=== PATIENT | female | born 1945 | race Caucasian/White ===

== ENCOUNTER 2025-01-18 08:54 | Outpatient (AMB) | payer MEDICARE, OTHER, SELFPAY ==
--- NOTE | 2025-01-18 09:14 | MHC.OFFVIS ---
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 Required: No Accompanied by: Self / Same As Patient Allergies amlodipine [From Norvasc] Allergy (Mild, Verified 01/18/25 09:22) Swelling hydroxychloroquine [From Plaquenil] Allergy (Mild, Verified 01/18/25 09:22) hives Medication List - Last Reconciled 01/18/25 by Bladimir Schofield MD abatacept (Orencia) 125 mg subcut QWEEK apixaban (Eliquis) 5 mg PO BID calcium citrate 200 mg PO BID cholecalciferol (vitamin D3) 25 mcg PO DAILY denosumab (Prolia) 60 mg subcut [id number] diclofenac sodium ER 100 mg PO DAILY furosemide (Lasix) 20 mg PO DAILY hydrochlorothiazide 50 mg PO DAILY labetalol 200 mg PO BID lisinopril 30 mg PO DAILY omeprazole 40 mg PO BID verapamil ER 120 mg PO BID vitamin E (dl, acetate) 180 mg PO DAILY HPI Comments Details: Ирина is here for cardiac consultation. Previously, seen at [facility] but would like to switch as her youth probation officer has left the practice. We do not have her previous office notes. According to patient, she has had atrial fibrillation for a few years now. Initially, she states it was intermittent, possibly paroxysmal atrial fibrillation but more recently it has been persistent. According to her, rates are generally well controlled. She seems to be on labetalol and verapamil for that. Also on anticoagulation. She asked about Watchman device but she has not had any falls or bleeding issues. Has hypertension on lisinopril. Denies any history of coronary disease or myocardial infarction or cardiomyopathy or TIA/CVA history. She states that she has also been told to have congestive heart failure and takes a small dose of diuretic. Other comorbidities include rheumatoid arthritis/osteoporosis. [facility] Medical History (Updated 01/18/25 @ 09:52 by Bladimir Schofield MD) Chronic heart failure with preserved ejection fraction (HFpEF) Persistent atrial fibrillation Osteoporosis Primary hypertension Rheumatoid arteritis Surgical History (Updated 01/18/25 @ 09:47 by Bladimir Schofield MD) Status post right hip replacement H/O: hysterectomy Hx of cervical spine surgery History of knee replacement Family History Father Heart problem Rheumatoid arthritis HTN (hypertension) Mother Heart problem HTN (hypertension) Diabetes type 2 Rheumatoid arthritis Social History (Updated 01/18/25 @ 09:28 by Harmony Sykes CMA) Alcohol intake: never Patient Tobacco Use Status: Former Tobacco user Review of Systems Const Denies chills, Denies daytime sleepiness, Denies fatigue, Denies fever(s), Denies poor appetite, Denies snoring, Denies stops breathing during sleep, Denies weakness, Denies weight gain and Denies weight loss Eyes Denies loss of vision ENT Denies dizziness and Denies hearing loss Card Denies chest pain, Denies irregular heart rhythm, Denies claudication, Denies leg edema, Denies lightheadedness, Denies palpitations, Denies dyspnea on exertion and Denies orthopnea Resp Denies cough, Denies excessive phlegm production, Denies dyspnea on exertion, Denies snoring and Denies wheezing GI Denies abdominal pain, Denies hematochezia, Denies change in bowel habits, Denies nausea and Denies vomiting Denies urinary frequency and Denies dysuria Musc Denies arthralgias, Denies muscle weakness, Denies numbness and Denies other Skin/Breast Denies nail changes and Denies rash Neuro Denies Abnormal speech present, Denies dizziness, Denies loss of vision, Denies memory loss, Denies numbness and Denies weakness Psych Denies depression and Denies memory loss Endo Denies fatigue and Denies palpitations Vasyl/Lymph Denies easy bruising Aller/Immun Denies wheezing Physical Exam Vital Signs: Last Vital Signs Pulse 87 01/18/25 09:21 BP 146/64 H 01/18/25 09:21 BMI result Body Mass Index 28.1 Const General: comfortable and no acute distress Orientation/consciousness: patient oriented x3 HEENT Other: Unremarkable Head: Yes normal to inspection Neck Neck: Yes normal visual inspection Chest Chest palpation & inspection: normal inspection of the chest Resp Auscultation: clear to auscultation bilaterally Cardio Palpation: normal PMI Heart sounds: S1 normal heart sound present, S2 normal heart sound present, no gallops, no murmurs and no rubs GI Palpation (GI): Soft to palpation Back/Spine/Pelvis Other: unremarkable Skin General skin exam: no rashes or lesions noted Neuro General: patient oriented x3 Speech: No Abnormal speech present Extrem General: Yes normal to inspection Psych Mental Status: mental status grossly normal Office Procedures EKG Details: EKG with atrial fibrillation at 87/Min; PVC versus aberrant conduction. Cannot exclude old septal infarct versus lateral infarct. Could also be related to body habitus. [id number], Complete Assessment & Plan Assessment & Plan (1) Persistent atrial fibrillation: Code(s): I48.19 - Other persistent atrial fibrillation Category: Medical Plan: Appears rate controlled. On labetalol/verapamil. On Eliquis. As she has no history of recurring falls or bleeding concerns, no absolute indication to proceed with Watchman device. We discussed about the procedure itself and after going over it, she states that she would rather just stay on anticoagulation for now. A prior EKG from 2019 also shows atrial fibrillation which likely indicates chronicity. (2) Chronic heart failure with preserved ejection fraction (HFpEF): Code(s): I50.32 - Chronic diastolic (congestive) heart failure Category: Medical Plan: No overt volume overload on exam. She can take furosemide as necessary. No indication to continue daily. She is also listed to be on hydrochlorothiazide, presumably for hypertension. Echocardiogram from 10/2023-LVEF 45-50%. Borderline concentric hypertrophy. Severely dilated atria. Possible mild aortic stenosis. Mild pulmonary hypertension. Plan We will request notes from primary care physician as well as prior youth probation officer. Coding Level of Care Code New Pt Level 4 (09810) Complex EM visit Add On G2211 Diagnoses Persistent atrial fibrillation I48.19 Chronic heart failure with preserved ejection fraction (HFpEF) I50.32 CPT Codes EKG - CPT: 91804-[id number], Complete ([id number])
[2025-01-18 09:21] VITALS: BP 146/64; PULSE 87; BMI 28.1
== END 2025-01-18 10:03 | disposition home or self-care (01) ==
PROVIDERS: PCP Family Medicine; Visit Provider Internal Medicine
DX: I48.19 Other persistent atrial fibrillation (principal); I50.32 Chronic diastolic (congestive) heart failure
CPT/HCPCS: 93010; 99204; G2211

== ENCOUNTER → 2025-01-18 08:54 | Outpatient (BNVA) | payer MEDICARE, SELFPAY | PROVIDERS: PCP Family Medicine; Visit Provider Internal Medicine | DX: I48.19 Other persistent atrial fibrillation (principal); I50.32 Chronic diastolic (congestive) heart failure | CPT/HCPCS: 93005; 99202 ==

== ENCOUNTER 2025-04-29 08:54 | Outpatient (AMB) | payer MEDICARE, OTHER, SELFPAY ==
--- OUTSIDE RECORDS SUMMARY | 2025-04-29 09:04 | XMS_ITS ---
Author Name [facility] Organization Unknown Results Test Name/Text Value Interpretation Date Range Source POTASSIUM 4.9 mmol/L Normal 05/07/2023 3.6 - 5.1 [facility] History of Medication Use Medication Directions Dispensed Refills Start Date End Date Status LISINOPRIL-HYDROCHLOROTH IAZIDE ORAL 3 active lisinopriL (PRINIVIL) 30 mg tablet Take 30 mg by mouth in the morning. 3 07/26/20 24 active predniSONE (DELTASONE) 5 mg tablet Take 2 tablets (10 mg total) by mouth in the morning. 3 07/16/20 23 active methylPREDNISolone acetate (DEPO-medrol) injection 40 mg 40 mg, intramuscular, Once, 1 dose, On Sat11/19/23 at 1345, Do not give IV. Shake well. Avoid injection into the deltoid muscle due to a high incidence of subcutaneous atrophy. 3 11/19/19 24 completed atenoloL (TENORMIN) 100 mg tablet 2 01/27/20 24 active ergocalciferol (VITAMIN D2) 1,250 mcg (50,000 unit) capsule TAKE 1 CAPSULE BY MOUTH 1 TIME A WEEK 2 10/18/20 22 active hydroCHLOROthiazide (HYDRODIURIL) tablet 1 active methotrexate tablet Take 6 tablets (15 mg total) by mouth once a week. Follow directions carefully, and ask to explain any part you do not understand. Take exactly as directed. 1 03/22/20 22 completed FluZONE HighDose Quad 20-21 PF 240 mcg/0.7 mL syringe vaccine PHARMACIST ADMINISTERED IMMUNIZATION ADMINISTERED AT TIME OF DISPENSING 0 active pantoprazole (PROTONIX) 40 mg EC tablet TAKE 1 TABLET BY MOUTH TWICE A DAY ( 30 TO 60 MINUTES BEFORE FOOD) 0 01/27/20 24 active BOOSTRIX TDAP 2.5-8-5 Lf-mcg-Lf/0.5mL vaccine 03/18/20 1 9 active SHINGRIX, PF, 50 mcg/0.5 mL suspension for reconstitution vaccine 8 01/27/20 24 active amoxicillin (AMOXIL) 500 mg capsule TAKE 4 CAPSULES BY MOUTH 1 HOUR PRIOR TO DENTAL WORK 8 active HYDROcodone-acetaminophe n (NORCO) 5-325 mg per tablet Take by mouth every 6 hours. 7 03/06/20 22 aborted hydrocortisone (ANUSOL-HC) 25 mg suppository 1 suppository 6 active cyanocobalamin 1,000 mcg tablet active omeprazole (PriLOSEC) 40 mg capsule TAKE 1 CAPSULE BY MOUTH TWICE DAILY 30 MINUTES BEFORE BREAKFAST active pyridoxine, vitamin B6, (VITAMIN B-6) 100 mg tablet 1 tablet active vitamin E, dl,tocopheryl acet, (vitamin E, dl, acetate,) 400 unit Take by mouth daily. Daily active Allergies Allergen Reaction Severity Comment Documented Date Source Statu s AMLODIPINE SWELLING 04/24/2021 [facility] active HYDROXYCHLOROQUINE SULFATE HIVES plaquenil 11/05/2013 [facility] active Problems Problem Status Onset Date Problem Type Date of Resoluti on Source Persistent atrial fibrillation active 2017-09-05 ProblemAct [facility] Diastolic heart failure active 2022-03-02 ProblemAct [facility] Polyarthralgia active 2018-08-01 ProblemAct [facility] Congestive heart failure with left ventricular systolic dysfunction active 2020-03-17 ProblemAct [facility] Gastroesophageal reflux disease without esophagitis active 2021-02-14 ProblemAct [facility] Encounter for long-term current use of medication active 2018-08-[address] [facility] Stage 3b chronic kidney disease active 2022-02-08 ProblemAct [facility] Hiatal hernia active 2020-04-12 ProblemAct [facility] Primary hyperparathyroidism active 2018-11-17 ProblemAct [facility] Polymyalgia rheumatica (CMS/HCC) active 2015-05-26 ProblemAct [facility] Encounter for ongoing osteoporosis non-bisphosphonate therapy active 2024-01-27 ProblemAct [facility] Rheumatoid arthritis involving multiple sites active 2018-08-01 ProblemAct [facility] Influenza vaccine needed active 2021-08-14 ProblemAct [facility] Essential hypertension active 2017-09-05 ProblemAct [facility] Immunizations Vaccine Date Source Lot Number Status Influenza Vaccine 65y and older 07/21/2021 [facility] [id number] completed Influenza Vaccine 65y and older 07/31/2019 [facility] [id number] completed Shingrix (Zoster Recombinant) 03/18/2019 [facility] [id number] completed Tdap 03/18/2019 [facility] [id number] completed Tdap 03/18/2019 [facility] [id number] completed Shingrix (Zoster Recombinant) 10/01/2018 [facility] [id number] completed Influenza Vaccine 65y and older 08/12/2018 [facility] [id number] [id number] completed Influenza Vaccine 65y and older 07/27/2017 [facility] [id number] [id number] completed Influenza Vaccine 65y and older 08/21/2016 [facility] completed Hepatitis B 01/24/2016 [facility] completed Hepatitis B 08/25/2015 [facility] completed Hepatitis B 07/26/2015 [facility] completed Influenza Vaccine 65y and older 07/26/2015 [facility] completed Influenza Vaccine 65y and older 07/17/2014 [facility] completed Pneumococcal Conjugate PCV-13 10/16/2013 [facility] completed Influenza Vaccine 65y and older 07/23/2013 [facility] completed Influenza Vaccine 65y and older 07/08/2012 [facility] completed Influenza, Unspecified 07/28/2011 [facility] co mpleted Influenza, Unspecified 09/08/2010 [facility] co mpleted Pneumococcal Polysaccharide PCV-23 11/10/2009 [facility] completed Td, Unspecified 05/31/2008 [facility] completed Zoster 05/31/2008 [facility] completed Encounters Encounter Type Encounter Reason Primary Diagnosis Location Date Ambulatory Rheumatoid Arthritis Rheumatoid Arthritis [facility] 11/10/2024 Ambulatory Rheumatoid arthritis , unspecified Rheumatoid arthritis, unspecified [facility] 05/19/2024 Ambulatory Age-related osteoporosis without current Age-related osteoporosis without current pathological fracture [facility] 01/27/2024 Ambulatory Injections Injections [facility] 11/19/2023 Ambulatory Rheumatoid Arthritis Rheumatoid Arthritis [facility] 11/19/2023 Ambulatory Rheumatoid arthr itis, unspecified [facility] 05/07/2023 Ambulatory Rheumatoid arthr itis, unspecified [facility] 05/07/2023 Ambulatory Age-related osteoporosis without current pathological fracture [facility] 04/24/2023 Ambulatory Age-related osteoporosis without current pathological fracture [facility] 04/24/2023 Ambulatory Age-related osteoporosis without current pathological fracture [facility] 04/24/2023 Ambulatory Rheumatoid Arthritis [facility] Ambulatory Age-related osteoporosis without current pathological fracture [facility] 10/18/2022 Ambulatory Rheumatoid arthr itis, unspecified [facility] 04/17/2022 Ambulatory Age-related osteoporosis without current pathological fracture [facility] 04/17/2022 Ambulatory [facility] 03/06/2022 Ambulatory [facility] 03/06/2022 Ambulatory Age-related osteoporosis without current pathological fracture [facility] 03/06/2022 Ambulatory Rheumatoid arthr itis, unspecified [facility] 11/21/2021 Care Team Organization Name Specialty Phone Email Start Date End Da ever [facility] Pina Guerra [facility] 04/17/2022 [facility] Primary Care 11/21/2021 04/17/2022
--- OUTSIDE RECORDS SUMMARY | 2025-04-29 09:04 | XMS_ITS | Encounter Summary ---
Author Organization [facility] Address [address] [place] [address] Phone Care Team Providers Care Biostatistics Director Name Role Phone Pina Guerra MD Primary Care Provider [phone] Encounter Details Date Type Department Care Team (Late Contact Info) Description 01/29/2024 Documentation Only [facility] [address] [place] [address] [place] [address]ou [address] [place] [phone] Social History Tobacco Use Types Packs/Day Years Used Date Smoking Tobacco: Former Cigarettes 1 15 1 985 - 2000 Smokeless Tobacco: Never Alcohol Use Standard Drinks/Week Comments Not Currently 0 (1 standard drink = 0.6 oz pur e alcohol) Comments Unknown Sex and Gender Information Value Date Recorded Sex Assigned at Not on file Legal Sex Female 2:31 PM EDT Gender Identity Not on file Sexual Orientation Not on file Occupation Industry Job Start Date Job End Date 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 [address] documented as of this encounter Visit Diagnoses Not on filedocumented in this encounter Care Teams Biostatistics Director Relationship Specialty Start Date End Date Pina Guerra MD [address] [place] [id number] PCP - General Family Medicine 02/13/22 documented as of this encounter
--- OUTSIDE RECORDS SUMMARY | 2025-04-29 09:04 | XMS_ITS | Clinical Summary ---
Author Organization [facility] Address [address] [place] [address] Care Team Providers Care Vulcan Crewmember Name Role Phone Unavailable Primary Care Provider Unavailabl e Social History Tobacco Use Types Packs/Day Years Used Date Smoking Tobacco: Never Assessed Comments Unknown Sex and Gender Information Value Date Recorded Sex Assigned at Not on file Legal Sex Female 4:22 PM EDT Gender Identity Not on file Sexual Orientation Not on file Plan of Treatment Health Maintenance Due Date Last Done Comments DTaP/Tdap/Td Vaccines (1 - Tdap) 1963 Pneumococcal Vaccines 50+ (1 of 1 - PCV) 1994 Zoster (Shingles) Vaccine (1 of 2) 1994 RSV Vaccine 60 years and old er and Patients (1 - 1-dose 75+ series) 2019 COVID-19 Vaccine (2023-2 5 season) 2024 Hepatitis B Vaccines Aged Out No long er eligible based on patient's age to complete this topic
--- OUTSIDE RECORDS SUMMARY | 2025-04-29 09:04 | XMS_ITS | Encounter Summary ---
Author Organization [facility] Address [address] [place] [address] Care Team Providers Care Pipeman Name Role Phone Pcp, Quiana SOL Primary Care Provider UnavailAnaly Guardado Primary Care Provider [phone] Pina Guerra Primary Care Provider [phone] Tessy Carr PHARMACIST Unavailable Unava ilable Encounter Details Date Type Department Care Team (Late st Contact Info) Description 09/13/2020 Orders Only [facility] Department of Rheumatology [address] [place] [address] Jose Luis [place] [address] [place] [address] Encounter for long-term current use of medication; Rheumatoid arthritis involving multiple sites, unspecified whether rheumatoid factor present (HCC) Social History Tobacco Use Types Packs/Day Years Used Date Smoking Tobacco: Former Cigarettes 1 15 1 993 - 2008 Smokeless Tobacco: Never Alcohol Use Standard Drinks/Week Comments No 0 (1 standard drink = 0.6 oz pur e alcohol) Comments No Sex and Gender Information Value Date Recorded Sex Assigned at Female 10/15/2021 6:21 PM EST Legal Sex Female 3:05 AM EST Gender Identity Female 10/15/2021 6:21 PM EST Sexual Orientation Straight 10/15/2021 6: 21 PM EST documented as of this encounter Plan of Treatment Upcoming Encounters Date Type Department Care Team (Late st Contact Info) Description 05/18/2025 11:00 AM EDT Office Visit [facility] Department of Rheumatology [address] [phone] Reny Gar MD [address] [facility] [place] [id number] Scheduled Orders Name Type Priority Associated Diagnoses Orde r Schedule Urinalysis, Complete Lab Routine Encounter for long-term current use of medication Rheumatoid arthritis involving multiple sites, unspecified whether rheumatoid factor present (HCC) Ordered: 09/13/2020 Ramon boric acid tube, urine Microbiology Routine Encounter for long-term current use of medication Rheumatoid arthritis involving multiple sites, unspecified whether rheumatoid factor present (HCC) Ordered: 09/13/2020 Yellow top, urine Lab Routine Encounter for long-term current use of medication Rheumatoid arthritis involving multiple sites, unspecified whether rheumatoid factor present (HCC) Ordered: 09/13/2020 Complete Blood Count with Auto Differential Lab Routine Encounter for long-term current use of medication Ordered: 09/13/2020 documented as of this encounter Visit Diagnoses Diagnosis Encounter for long-term current use of medication Rheumatoid arthritis involving multiple sites, unspecified whether rheumatoid factor present (HCC) documented in this encounter Care Teams Pipeman Relationship Specialty Start Date End Date PcpQuiana MD [address] [place] [address] PCP - General Internal Medicine 07/21/18 09/19/20 Analy Blanco [address] [place] [address] PCP - General 09/20/20 07/20/21 Pina Guerra [address] [place] [address] PCP - General Primary Care 07/21/21 Tessy Carr, PHARMACIST [address] [place] [address] Pharmacy 11/05/23 documented as of this encounter
--- NOTE | 2025-04-29 09:33 | A.OFFVIS_ITS ---
Vital Signs 04/29/25 09:34 Height 5 ft Weight 130 lb 1.164 oz BMI 25.4 BP 120/68 Blood Pressure Location Lt brachial Position Sitting Pulse 70 Pulse Source Pulse Oximeter Intake Visit Reasons: 3m follow up Allergies amlodipine (From Norvasc) Allergy (Mild, Verified 01/18/25 09:22) Swelling hydroxychloroquine (From Plaquenil) Allergy (Mild, Verified 01/18/25 09:22) hives Medication List - Last Reconciled 04/29/25 by Bladimir Schofield MD abatacept (Orencia) 125 mg subcut QWEEK apixaban (Eliquis) 5 mg PO BID calcium citrate 200 mg PO BID cholecalciferol (vitamin D3) 25 mcg PO DAILY denosumab (Prolia) 60 mg subcut [id number] diclofenac sodium ER 100 mg PO DAILY furosemide (Lasix) 20 mg PO DAILY hydrochlorothiazide 50 mg PO DAILY labetalol 200 mg PO BID lisinopril 30 mg PO DAILY omeprazole 40 mg PO BID verapamil ER 120 mg PO BID vitamin E (dl, acetate) 180 mg PO DAILY HPI Comments Details: Ирина returns for follow-up. Previously, seen at [facility] but would like to switch as her mica patcher has left the practice. History of atrial fibrillation, possibly persistent. She is maintained on rate control with verapamil and labetalol. Also on anticoagulation. Also has a history of congestive heart failure on diuretics. For the most part, she states that she is doing fine. No clear-cut cardiac symptoms. She states that her labetalol dose was increased few months back and after that, she is just feeling tired and has nonspecific symptoms. She feels it is a drug side effect. Otherwise, no known coronary disease myocardial infarction or cardiomyopathy. No known stroke history. Other comorbidities include rheumatoid arthritis/osteoporosis. [facility] Medical History (Updated 04/29/25 @ 10:05 by Bladimir Schofield MD) Chronic heart failure with preserved ejection fraction (HFpEF) Persistent atrial fibrillation Osteoporosis Primary hypertension Rheumatoid arteritis Surgical History (Updated 01/18/25 @ 09:47 by Bladimir Schofield MD) Status post right hip replacement H/O: hysterectomy Hx of cervical spine surgery History of knee replacement Family History Father Heart problem Rheumatoid arthritis HTN (hypertension) Mother Heart problem HTN (hypertension) Diabetes type 2 Rheumatoid arthritis Social History (Updated 01/18/25 @ 09:28 by Harmony Sykes CMA) Alcohol intake: never Patient Tobacco Use Status: Former Tobacco user Review of Systems Const Denies weakness ENT Denies dizziness Card Denies chest pain, Denies chest pain with activity, Denies syncope, Denies rapid heart rate, Denies pedal edema, Denies edema, Denies leg edema, Denies lightheadedness, Denies palpitations, Denies dyspnea, Denies dyspnea on exertion and Denies orthopnea Resp Denies cough, Denies dyspnea and Denies dyspnea on exertion GI Denies hematochezia and Denies change in stool character Musc Denies abnormal gait, Denies muscle cramps, Denies muscle weakness, Denies numbness, Denies radiating pain into limb and Denies tingling Neuro Denies abnormal gait, Denies dizziness, Denies syncope, Denies numbness, Denies tingling and Denies weakness Endo Denies palpitations Physical Exam Vital Signs: Last Vital Signs Pulse 70 04/29/25 09:34 BP 120/68 04/29/25 09:34 BMI result Body Mass Index 25.4 Const General: comfortable and no acute distress Orientation/consciousness: patient oriented x3 HEENT Other: Unremarkable Head: Yes normal to inspection Neck Neck: Yes normal visual inspection Chest Chest palpation & inspection: normal inspection of the chest Resp Auscultation: clear to auscultation bilaterally Cardio Palpation: normal PMI Heart sounds: S1 normal heart sound present, S2 normal heart sound present, no gallops, Murmur heart sound present systolic II/ and at the right sternal border and no rubs GI Palpation (GI): Soft to palpation Back/Spine/Pelvis Other: unremarkable Skin General skin exam: no rashes or lesions noted Neuro General: patient oriented x3 Extrem General: Yes normal to inspection Psych Mental Status: mental status grossly normal Assessment & Plan Assessment & Plan (1) Persistent atrial fibrillation: Code(s): I48.19 - Other persistent atrial fibrillation Category: Medical Plan: A prior EKG from 2019 also shows atrial fibrillation which likely indicates chronicity. In the Holter monitor from 2023, underlying atrial fibrillation with rates ranging from 55-112/Min. Continue verapamil. As she is describing side effects with labetalol, try atenolol instead. Continue anticoagulation. (2) Chronic heart failure with preserved ejection fraction (HFpEF): Code(s): I50.32 - Chronic diastolic (congestive) heart failure Category: Medical Plan: No overt volume overload on exam. She can take furosemide as necessary. No ind ication to continue daily. She is also listed to be on hydrochlorothiazide, presumably for hypertension. Echocardiogram from 10/2023-LVEF 45-50%. Borderline concentric hypertrophy. Severely dilated atria. Possible mild aortic stenosis. Mild pulmonary hypertension. In another study from 2022, described to have moderate aortic stenosis. May recheck. (3) Nonrheumatic aortic (valve) stenosis: Code(s): I35.0 - Nonrheumatic aortic (valve) stenosis Category: Medical Plan: Repeat echocardiogram. Plan Discussion Notes I discussed with the patient the option of switching from labetalol to atenolol to manage her hypertension and reduce side effects. We reviewed the importance of monitoring her blood pressure and heart rate closely during this transition. I also explained the need for a repeat echocardiogram to monitor her aortic stenosis and scheduled a follow-up appointment in three months. Patient was informed and verbally consented to the use of an ambient scribe for clinic note documentation during this visit. Orders: Orders CA echo transthoracic complete Today I50.32 - Chronic diastolic (congestive) heart failure Medications: New atenolol 50 mg PO DAILY 90 tabs 1RF Patient Instructions: - Switch from labetalol to atenolol as prescribed. - Monitor blood pressure and heart rate regularly. - Attend the echocardiogram appointment as scheduled. - Follow up in three months for reassessment. Coding Level of Care Code Est Pt Level 4 (65254) Complex EM visit Add On G2211 Diagnoses Persistent atrial fibrillation I48.19 Chronic heart failure with preserved ejection fraction (HFpEF) I50.32 Nonrheumatic aortic (valve) stenosis I35.0
[2025-04-29 09:34] VITALS: BP 120/68; PULSE 70; BMI 25.4
== END 2025-04-29 10:00 | disposition home or self-care (01) ==
PROVIDERS: PCP Family Medicine; Visit Provider Internal Medicine
DX: I48.19 Other persistent atrial fibrillation (principal); I50.32 Chronic diastolic (congestive) heart failure; I35.0 Nonrheumatic aortic (valve) stenosis
CPT/HCPCS: 99214; G2211

== ENCOUNTER → 2025-04-29 08:54 | Outpatient (BNVA) | payer MEDICARE, OTHER, SELFPAY | PROVIDERS: PCP Family Medicine; Visit Provider Internal Medicine | DX: I50.32 Chronic diastolic (congestive) heart failure (principal); I35.0 Nonrheumatic aortic (valve) stenosis; I48.19 Other persistent atrial fibrillation | CPT/HCPCS: 99212 ==

== ENCOUNTER → 2025-06-09 12:13 | Outpatient (REF) | payer MEDICARE, OTHER, SELFPAY ==
--- NOTE | 2025-06-09 12:19 | CA_ITS ---
Transthoracic Echocardiogram Patient (Last, First, Middle): Monica Miller, Gender: Female Date of : 1945 Age: 79 Procedure Date: 06/09/2025 Procedure Type: Transthoracic Echocardiogram Location: OP Height: 152.4 cm Weight: 58.97 kg BSA: 1.55 m2 Heart Rate: bpm BP: 120 / 68 mmHg Healthcare Market Consultant: SB Referring MD: Bladimir Schofield MD Trench Trimmer Fine: Jose Enrique Bloom MD Symptoms: I50.32 - Chronic diastolic (congestive) heart failure Study Quality: Good ECG Rhythm: Atrial Fibrillation Conclusions: - 1. Mildly to moderately reduced LV ejection fraction at 40-45% with mild LVH with restrictive filling pattern 2. Mildly to moderately reduced RV systolic function 3. Severe biatrial enlargement 4. Low gradient byel-av-vgyknppi aortic stenosis 5. Normal calculated RV systolic pressure 6. No gross pericardial effusion Findings Left Ventricle Normal left ventricular cavity size. There is mildly increased left ventricular wall thickness. The left ventricular systolic function is mild to moderately decreased. The visually estimated ejection fraction is between 40-45%. Spectral Doppler is indicative of a restrictive filling pattern. There is moderate septal asymmetric hypertrophy. Right Ventricle Normal right ventricular cavity size. There is mild to moderately decreased right ventricular systolic function. Atria Severe biatrial enlargement. Interatrial shunt cannot be excluded. Aortic Valve There is moderate calcification of the aortic valve. There is mild to moderate aortic valve stenosis. The peak aortic gradient is 16 mmHg.The mean gradient is 10 mmHg. There is no aortic valve regurgitation. Mitral Valve There is moderate anterior and posterior mitral leaflet thickening. There is mild mitral annular calcification. There is mild mitral valve regurgitation. There is no mitral valve stenosis. Pulmonic Valve The pulmonic valve was not well visualized. Tricuspid Valve Likely normal tricuspid valve structure and function. There is trace tricuspid valve regurgitation. The right ventricular systolic pressure is normal. The right ventricular systolic pressure is 28 mmHg. Normal right atrial pressure. There is no evidence of pulmonary hypertension. Great Vessels All visible segments of the aorta are normal in size. The pulmonary artery was not well visualized. There is no dilatation of the ascending aorta measuring 3.40 cm. Venous The inferior vena cava is normal in size and collapses greater than 50% with inspiration. Pericardium/Pleural There is no evidence of pericardial effusion. Prior Study Comparison No prior study available for comparison. Measurements 2D Linear Measurements IVSd: 1.11 0.6-0.9/0.6-1.0 cm LVIDd: 5.12 3.9-5.3/4.2-5.9 cm LVIDd Index: 3.30 2.4-3.2/2.2-3.1 cm/m2 LVIDs: 3.89 2.0-3.6 cm LVPWd: 1.31 0.7-1.1 cm LA Diam: 4.60 2.7-3.8/3.0-4.0 cm LAIDs Index: 2.97 1.5-2.3 cm/m2 LV Mass: 306.22 67-162/88-224 g LV Mass Index: 197.56 43-95/49-115 g/m2 LVOT Diam: 2.10 3.0+(-)1.3 cm 2D Systolic Function EF 4C: 41.20 >55% EF 2C: 44.00 >55% EF BiP: 43.30 >55% Mitral Valve MV Pk E: 1.18 E'Lateral: 7.18 E/E' Lat: 16.40 Aortic Valve AoV Pk Jhonathan: 2.02 AoV Mn Jhonahtan: 1.48 AoV VTI: 0.39 AoV Pk Grad: 16.00 Aov Mn Grad: 10.00 ASIA Cont.VTI: 1.03 LVOT LVOT Pk Jhonathan: 0.64 LVOT Mn Jhonathan: 0.44 LVOT VTI: 0.12 LVOT Pk Grad: 2.00 LVOT Mn Grad: 1.00 LVOT Diam: 2.10 LVOT Area: 3.46 Diastolic Function MV Pk E: 1.18 E' Laterial: 7.18 E/E' Lat: 16.40 Right Ventricle TAPSE (mm): 14.30 TVS' Jhonathan: 6.31 Tricuspid Valve TR Pk Jhonathan: 2.50 TR Pk Grad: 25.00 RA Press: 3.00 RVSP: 28.00 Great Vessels Aorta Sinus of Valsalva: 2.90 2.0-3.5 cm Ao Asc: 3.40 2.1-3.4 cm Pulmonary Valve PV Pk Jhnoathan: 0.54 Peak PV Grad: 1.00 Updated in Other Vendor System with Status of Final Jose Enrique Bloom MD electronically signed on 06/09/2025 3:20:28 PM with status of Final
--- OUTSIDE RECORDS SUMMARY | 2025-06-09 12:55 | XMS_ITS | Encounter Summary ---
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 [address] documented as of this encounter Visit Diagnoses Not on filedocumented in this encounter Care Teams Industrial Gas Fitter Helper Relationship Specialty Start Date End Date Pina Guerra MD [address] [place] [address] PCP - General Family Medicine 02/13/22 documented as of this encounter
--- OUTSIDE RECORDS SUMMARY | 2025-06-09 12:55 | XMS_ITS | Encounter Summary ---
Author Organization [facility] Address [address] [place] [address] Care Team Providers Care Destination Imagination Coordinator Name Role Phone Pina Guerra Primary Care Provider [phone] Tessy Carr PHARMACIST Unavailable Unava ilable Encounter Details Date Type Department Care Team (Late st Contact Info) Description 02/17/2025 Orders Only [facility] [address] [place] [address] Reny Gar MD [address] [facility] [phone] Social History Tobacco Use Types Packs/Day Years Used Date Smoking Tobacco: Former Cigarettes 1 15 0 10/28/1992 - 10/28/2007 Smokeless Tobacco: Never Alcohol Use Standard Drinks/Week [...] Care Team (Late st Contact Info) Description 01/11/2026 11:00 AM EDT Office Visit [facility] [address] [place] [address] Reny Gar MD [address] [facility] [phone] documented as of this encounter Visit Diagnoses Not on filedocumented in this encounter Care Teams Destination Imagination Coordinator Relationship Specialty Start Date End Date Pina Guerra [address] [place] [address] PCP - General Primary Care 07/21/21 Tessy Carr, PHARMACIST [address] [place] [address] Pharmacy 11/05/23 documented as of this encounter
--- OUTSIDE RECORDS SUMMARY | 2025-06-09 12:55 | XMS_ITS | Encounter Summary ---
Author Organization [facility] Address [address] [place] [phone] Phone Care Team Providers Care Vp Construction Name Role Phone Pina Guerra MD Primary Care Provider [phone] Encounter Details Date Type Department Care Team (Latest Contact Info) Description 03/23/2022 Transcribe Orders [facility] [address] [place] [address] Bettie Moulton, THO [address] [facility] [place] [address] Primary hyperparathyroidism (Primary Dx) Social History Tobacco Use Types Packs/Day Years Used Date Smoking Tobacco: Former Cigarettes 1 20 1 980 - 1999 Smokeless Tobacco: Never Alcohol Use Standard Drinks/Week Comments No 0 (1 standard drink = 0.6 oz pur e alcohol) Child or Family Care Answer Date Record ed Do you have problems with on e of the following making it difficult for you to work, study, or receive health care? No 08/07/2021 Education Answer Date Recorded Are you interested in help w ith more adult education (for example, completing high school, GED, job training, learning the Filipino language, technical skills, or developing parenting skills)? No 08/07/2021 Food Answer Date Recorded Within the past 6 months we worried whether our food would run out before we got money to buy more. Never True 08/07/2021 Within the past 6 months the food we bought just didn't last and we didn't have enough money to get more. Never True Residential Stability Answer Date Recor ded What is your housing situation today? I have elidia joyce 08/07/2021 How many times have you move d in the past 12 months? Zero (I did not move) 08/07/2021 Paying for Meds Answer Date Recorded Do you have trouble paying for medicines? No 08/07/2021 Paying Utility Bills Answer Date Record ed Do you have trouble paying your heating or elect ricity bill? No 08/07/2021 Transportation Answer Date Recorded Has the lack of transportati on kept you from medical appointments or from getting medications? No 08/07/2021 Unemployment Answer Date Recorded Are you currently unemployed or working on a part-time or temporary basis, and looking for work? No 08/07/2021 Comments Unknown Sex and Gender Information Value Date Recorded Sex Assigned at Female 03/17/2020 11:24 AM EDT Legal Sex Female 10:09 PM EDT Gender Identity Female 03/17/2020 11:24 AM EDT Sexual Orientation Straight 03/17/2020 11 :24 AM EDT documented as of this encounter Plan of Treatment Upcoming Encounters Date Type Department Care Team (Late st Contact Info) Description 07/14/2025 9:20 AM EDT Office Visit [facility] [address] [place] [address] [place] [address] Carolina Bejarano MD [address] [place] [address] 07/27/2025 10:15 AM EDT Appointment [facility], Bone Density [address] [address] Carolina Bejarano MD [address] [place] [address] documented as of this encounter Results * TISSUE TRANSGLUTAMINASE IGA/IGG (03/23/2022 8:15 AM EDT) TTG IGA ANTIBODY <1.2 <4.0 (Negative) U/mL [facility] TTG ANTIBODY IGG <1.2 <6.0 (Negative) U/mL [facility] [place] Blood 03/23/2022 8:15 AM EDT 03/23/2022 8:23 AM EDT us Bettie Chambersuliffe RADIO SALES ACCOUNT EXECUTIVE LAB BLOOD ORDERABLES Final Result [facility] [place] [address] [place] [address] documented in this encounter Visit Diagnoses Diagnosis Primary hyperparathyroidism- Primary documented in this encounter Additional Health Concerns Assessment Noted Time PHQ-2 Depression Total Score: 1 08/07/20 21 11:21 AM EDT documented as of this encounter Care Teams Vp Construction Relationship Specialty Start Date End Date Pina Guerra MD [address] [place] [address] [email or web address] PCP - General Family Medicine 03/03/21 documented as of this encounter Additional Source Comments The information contained in this document represents components of the legal health record. It is not the complete legal health record.[facility]
--- OUTSIDE RECORDS SUMMARY | 2025-06-09 12:55 | XMS_ITS | Clinical Summary ---
Author Organization [facility] Address [address] [place] [address] Care Team Providers Care Special Services Coordinator Name Role Phone Unavailable Primary Care Provider [...] - 1-dose 75+ series) 2019 COVID-19 Vaccine ( - 2023-2 5 season) 2024 Hepatitis B Vaccines Aged Out No long er eligible based on patient's age to complete this topic
== END ==
LOC: HO.CARD 12:13
PROVIDERS: PCP Family Medicine; Visit Provider Internal Medicine
DX: I50.32 Chronic diastolic (congestive) heart failure (principal)
CPT/HCPCS: 93306

== ENCOUNTER → 2025-06-09 12:19 | Outpatient (BNV) | payer MEDICARE, OTHER, SELFPAY | PROVIDERS: PCP Family Medicine; Visit Provider Internal Medicine Cardiovascular Disease | DX: I42.2 Other hypertrophic cardiomyopathy (principal); I35.0 Nonrheumatic aortic (valve) stenosis; I51.7 Cardiomegaly; I34.81 Nonrheumatic mitral (valve) annulus calcification | CPT/HCPCS: 93306 ==

== ENCOUNTER 2025-08-31 10:06 | Outpatient (AMB) | payer MEDICARE, OTHER, SELFPAY ==
[2025-08-31 10:13] VITALS: BP 130/70; PULSE 92; BMI 27.1
--- NOTE | 2025-08-31 10:13 | MHC.OFFVIS ---
Vital Signs 08/31/25 10:13 Height 5 ft Weight 138 lb 14.259 oz BMI 27.1 BP 130/70 Blood Pressure Location Lt brachial Position Sitting Pulse 92 Pulse Source Pulse Oximeter Intake Visit Reasons: 3m follow up/ echo prior Furniture Finisher Required: No Accompanied by: Self / Same As Patient Allergies amlodipine (From Norvasc) Allergy (Mild, Verified 01/18/25 09:22) Swelling hydroxychloroquine (From Plaquenil) Allergy (Mild, Verified 01/18/25 09:22) hives Medication List - Last Reconciled 08/31/25 by Bladimir Schofield MD abatacept (Orencia) 125 mg subcut QWEEK apixaban (Eliquis) 5 mg PO BID atenolol 50 mg PO DAILY calcium citrate 200 mg PO BID cholecalciferol (vitamin D3) 25 mcg PO DAILY denosumab (Prolia) 60 mg subcut [id number] diclofenac sodium ER 100 mg PO DAILY furosemide (Lasix) 20 mg PO DAILY hydrochlorothiazide 50 mg PO DAILY lisinopril 30 mg PO DAILY omeprazole 40 mg PO BID verapamil ER 120 mg PO BID vitamin E (dl, acetate) 180 mg PO DAILY HPI Comments Details: Ирина returns for follow-up. Previously, seen at [facility] but would like to switch as her claims adjuster crop has left the practice. History of atrial fibrillation, likely persistent. Also has a history of congestive heart failure on diuretics. There is no history of any coronary disease or myocardial infarction or cardiomyopathy. She was on Labetalol and she was complaining of lot of tiredness and we switched that to Atenolol. After that, she states that she is much better. Otherwise, no new concerns. She states she is doing fine. ON LICENSE OF [facility] Medical History Chronic heart failure with preserved ejection fraction (HFpEF) Persistent atrial fibrillation Osteoporosis Primary hypertension Rheumatoid arteritis Surgical History Status post right hip replacement H/O: hysterectomy Hx of cervical spine surgery History of knee replacement Family History Father Heart problem Rheumatoid arthritis HTN (hypertension) Mother Heart problem HTN (hypertension) Diabetes type 2 Rheumatoid arthritis Social History Alcohol intake: never Patient Tobacco Use Status: Former Tobacco user Review of Systems Const Denies chills, Denies fatigue, Denies fever(s), Denies frequent falls, Denies weakness, Denies weight gain and Denies weight loss ENT Denies dizziness Card Denies chest pain, Denies leg edema, Denies lightheadedness, Denies palpitations, Denies dyspnea and Denies dyspnea on exertion Resp Denies cough, Denies dyspnea and Denies dyspnea on exertion GI Denies hematochezia Musc Denies abnormal gait, Denies muscle weakness, Denies numbness, Denies radiating pain into limb and Denies tingling Neuro Denies abnormal gait, Denies dizziness, Denies frequent falls, Denies numbness, Denies tingling and Denies weakness Endo Denies fatigue and Denies palpitations Physical Exam Vital Signs: Last Vital Signs Pulse 92 08/31/25 10:13 BP 130/70 08/31/25 10:13 BMI result Body Mass Index 27.1 Const General: comfortable and no acute distress Orientation/consciousness: patient oriented x3 HEENT Other: Unremarkable Head: Yes normal to inspection Neck Neck: Yes normal visual inspection Chest Chest palpation & inspection: normal inspection of the chest Resp Auscultation: clear to auscultation bilaterally Cardio Palpation: normal PMI Heart sounds: S1 normal heart sound present, S2 normal heart sound present, no gallops, Murmur heart sound present systolic II/ and at the right sternal border and no rubs GI Palpation (GI): Soft to palpation Back/Spine/Pelvis Other: unremarkable Skin General skin exam: no rashes or lesions noted Neuro General: patient oriented x3 Extrem General: Yes normal to inspection Psych Mental Status: mental status grossly normal Assessment & Plan Assessment & Plan (1) Persistent atrial fibrillation: Code(s): I48.19 - Other persistent atrial fibrillation Category: Medical Plan: A prior EKG from 2019 also shows atrial fibrillation which likely indicates chronicity. In the Holter monitor from 2023, underlying atrial fibrillation with rates ranging from 55-112/Min. She is tolerating atenolol better and continue that. Has been on long-term verapamil. No changes for now. Continue anticoagulation. (2) Chronic heart failure with preserved ejection fraction (HFpEF): Code(s): I50.32 - Chronic diastolic (congestive) heart failure Category: Medical Plan: Of note, she has listed on both furosemide and hydrochlorothiazide. Not clear if it is accurate or not. Clinically, seems stable. In the recent echocardiogram, LVEF is 40-45%. Could be related to atrial fibrillation. CAD is also possible but she has got no overt anginal type symptoms. In the prior echocardiogram, LVEF was 45-50%, quite similar. (3) Nonrheumatic aortic (valve) stenosis: Code(s): I35.0 - Nonrheumatic aortic (valve) stenosis Category: Medical Plan: In the recent echocardiogram, moderate aortic valve calcification with heom-uc-fzhilioc stenosis. We will monitor this periodically. (4) Mitral annular calcification: Code(s): I34.81 - Nonrheumatic mitral (valve) annulus calcification Category: Medical Plan: Echocardiogram with moderate anterior/posterior mitral valve thickening with mild annular calcification. Mild mitral regurgitation. We can follows periodically on echocardiogram. Coding Level of Care Code Est Pt Level 4 (47636) Complex EM visit Add On G2211 Diagnoses Persistent atrial fibrillation I48.19 Chronic heart failure with preserved ejection fraction (HFpEF) I50.32 Nonrheumatic aortic (valve) stenosis I35.0 Mitral annular calcification I34.81
--- OUTSIDE RECORDS SUMMARY | 2025-08-31 11:44 | XMS_ITS | Encounter Summary ---
Author Organization [facility] Address [address] [place] [phone] Phone Care Team Providers Care Director International Name Role Phone Pina Guerra MD Primary Care Provider [phone] Encounter Details Date Type Department Care Team (Late st Contact Info) Description 09/14/2024 Procedure Pass Echo Lab [address] [place] [address] Social History Tobacco Use Types Packs/Day Years [...] Answer Date Recorded Are you interested in more education? Not on nathan e 08/13/2023 Are you concerned about learning? Not on file 08/13/2023 No 08/13/2023 No 08/13/2023 Food Answer Date Recorded Within the past [...] your housing situation today? I have elidia sing 08/07/2021 How many times have you move [...] basis, and looking for work? No 08/07/2021 Digital Access Answer Date Recorded No 03/19/2023 No 03/19/2023 Reliable internet access at home? Not on file 03/19/2023 Device with a working camera? Not on file Comments Unknown Sex and Gender Information Value Date Recorded Sex Assigned at Female 03/17/2020 11:24 AM EDT Legal Sex Female 10:09 PM EDT Gender Identity Female 03/17/2020 11:24 AM EDT Sexual Orientation Straight 03/17/2020 11 :24 AM EDT documented as of this encounter Plan of Treatment Upcoming Encounters Date Type Department Care Team (Late st Contact Info) Description 09/29/2025 8:20 AM EST Office Visit [facility] [address] [address] Pina Guerra MD [address] [address] [email or web address] 10/13/2025 1:15 PM EST Office Visit [facility] [address] [place] [address] Carolina Bejarano MD [address] [facility] [address] [place] [address] [email or web address] King, PT [address] [place] [address] 10/25/2025 12:30 PM EST Office Visit [facility] [address] [place] [address] Carolina Bejarano MD [address] [place] [address] [email or web address] Destiny King, PT 8 [place] [address] 10/29/2025 1:30 PM EST Office Visit [address] [place] [address] Carolina Bejarano MD [address] [place] [address] [email or web address] Destiny King, PT 8 [place] [address] 11/01/2025 1:00 PM EST Office Visit [facility] [address] [place] [address] Carolina Bejarano MD [address] [place] [address] [email or web address] Hugh Burt, [address] [address] 11/04/2025 1:45 PM EST Office Visit [address] [place] [address] Carolina Bejarano MD [address] [place] [address] [email or web address] Hugh Burt, [address] [address] 11/08/2025 12:30 PM EST Office Visit [address] [place] [address] Carolina Bejarano MD [address] [place] [address] [email or web address] Destiny King, PT 8 [place] [address] 11/11/2025 1:00 PM EST Office Visit [address] [address] Carolina Bejarano MD [address] [place] [address] [email or web address] Hugh Burt, [address] [address] 11/15/2025 1:00 PM EST Office Visit [address] [address] Carolina Bejarano MD [address] [place] [address] [email or web address] Hugh Burt, [address] [address] 11/18/2025 12:15 PM EST Office Visit [address] [address] Carolina Bejarano MD [address] [place] [address] [email or web address] Destiny King, PT [address] [place] [address] 12/29/2025 10:00 AM EST Office Visit VIN[facility] Garcia [address] [place] [address] Carolina Bejarano MD [address] [place] [phone] [email or web address] documented as of this encounter Visit Diagnoses Not on filedocumented in this encounter Additional Health Concerns Assessment Noted Time PHQ-2 Depression Total Score: 1 08/07/20 21 11:21 AM EDT documented as of this encounter Care Teams Director International Relationship Specialty Start Date End Date Pina Guerra MD [address] [place] [phone] [email or web address] PCP - General Family Medicine 03/03/21 documented as of this encounter Additional Source Comments The information contained in this document represents components of the legal health record. It is not the complete legal health record.[email or web address]
--- OUTSIDE RECORDS SUMMARY | 2025-08-31 11:44 | XMS_ITS | Clinical Summary ---
Author Organization [facility] Address [address] [place] [id number] Phone Care Team Providers Care Field Naturalist Name Role Phone Pina Guerra MD Primary Care Provider [phone] Allergies Active Allergy Reactions Criticality Noted Date Comments Amlodipine Swelling 04/24/2021 Lip and tounge Penicillins 09/05/2017 Hydroxychloroquine 09/05/2017 Medications polycarbophil (FIBERCON) 625 mg tablet Take 625 mg by mouth daily. Active b complex vitamins capsule Take 1 capsule by mouth daily. Active folic acid (FOLVITE) 1 MG tablet Take 1 mg by mouth daily. 05/26/20 15 Active ORENCIA 125 mg/mL Syrg subcutaneous injection syringe every 7 days. 04/20/20 20 Active CALCIUM ORAL Take by mouth 2 (two) times a day. Active hydrocortisone acetate (ANUSOL-HC) 25 mg suppositoryIndic ations:Hemorrhoi ds, internal Place rectally 2 (two) times a day as needed for hemorrhoid discomfort. 12 suppository 6 08/10/20 21 Active denosumab (PROLIA) 60 mg/mL Syrg subcutaneous syringe Inject 60 mg under the skin. Every 6 months 04/17/20 22 Active hydroCHLOROthiaz aida (HYDRODIURIL) 25 MG tabletIndication s:Congestive heart failure with left ventricular systolic dysfunction TAKE 2 TABLETS(50 MG) BY MOUTH DAILY 180 tablet 3 12/12/19 23 Active verapamiL (VERELAN) 120 MG 24 hr capsule Take 120 mg by mouth 2 (two) times a day. 06/28/20 23 Active lisinopril (PRINIVIL,ZESTRI L) 30 MG tablet Take 30 mg by mouth daily. 07/26/20 23 Active omeprazole (PRILOSEC) 40 MG capsule daily. 06/02/20 23 Active fluticasone furoate (ARNUITY ELLIPTA) 100 mcg/actuation DsDv Inhale 1 puff into the lungs 2 (two) times a day. 30 each 07/29/20 24 Active levoFLOXacin (LEVAQUIN) 500 MG tablet Take 1 tablet (500 mg total) by mouth daily. 10 tablet 07/29/20 24 Active diclofenac sodium (VOLTAREN XR) 100 mg 24 hr tabletIndication s:Osteoporosis TAKE 1 TABLET(100 MG) BY MOUTH DAILY 90 tablet 09/13/20 24 Active vitamin E 400 unit Cap Take by mouth. 05/30/20 24 Active labetaloL (TRANDATE) 100 MG tabletIndication s:Medication refill Take 1 tablet (100 mg total) by mouth 2 (two) times a day. 180 tablet 3 09/27/20 24 Active furosemide (LASIX) 20 MG tabletIndication s:Congestive heart failure with left ventricular systolic dysfunction Take 1 tablet (20 mg total) by mouth daily. 30 tablet 2 11/02/19 25 Active amoxicillin (AMOXIL) 500 MG capsule TAKE 4 CAPSULES(2000 MG) BY MOUTH 1 TIME FOR 1 DOSE 4 capsule 3 12/23/19 25 Active Additional Information Patient taking differently: 500 mg Oral As needed, Only for dental procedures, Reported on 08/10/2025 ELIQUIS 5 mg tabletIndication s:Paroxysmal atrial fibrillation TAKE 1 TABLET(5 MG) BY MOUTH TWICE DAILY 180 tablet 05/17/20 25 Active Active Problems Problem Noted Date Diagnosed Date Dyspnea 09/14/2024 Assessment & Plan (10/05/2024 8:48 AM EST): Persistent dyspnea with exertion, new onset trace edema. She is scheduled for an echo and has seen cardiology. I do think we should also repeat the chest x-ray, get a BNP as well as a comprehensive and CBC. Patient understands and agrees this plan of care. Assessment & Plan (09/14/2024 1:31 PM EST): Will request for echocardiogram and Holter monitor to evaluate further Permanent atrial fibrillation 09/14/2024 Assessment & Plan (09/14/2024 1:31 PM EST): Will request for echocardiogram and Holter monitor. Will continue same dose of AV verito blocking agents. Will decide dose on AV verito blocking agents depending upon average heart rate on Holter Other pneumonia, unspecified organism 07/30/2024 Assessment & Plan (07/30/2024 1:49 PM EDT): Given duration of illness I do think that this is a bacterial pneumonia. She is not improving which I would expect if this had been a viral illness. I do think that she needs to be treated with antibiotics, this is complicated by both her CHF, COPD and penicillin allergy. We need to be careful about using drugs that will cause QT prolongation but also she has insulin allergy. Risks and benefits and potential side effects of Levaquin discussed with patient. Were also going to start her on a steroid inhaler, she is advised to continue the Mucinex. We discussed that she looks well enough currently that I do not think she needs to go to the hospital although she certainly has enough risk factors that would not be crazy to treat her as an inpatient. She has good home support excellent medical knowledge and understands when she would need to go to the hospital, she feels that she can take care of herself for now. If she is worsening, develops new fevers, worsening short of breath she will go to the emergency room. If she has new chest pain, new dizziness or is not simply not improving after a few days on antibiotics I likely will send her to the emergency room for evaluation for admission. Age-related osteoporosis wit taylor current pathological fracture 03/27/2024 Assessment & Plan (08/10/2025 4:21 PM EDT): Patient has been treated with every 6 months Prolia since the summer 2021 without missing a dose. She had no new fractures. Last DEXA on 07/27/2025 reviewed and compared to DEXA on 09/05/2021 at the same facility. There is a significant 13.6% decline at the left total hip with T- score -2.8. The distal forearm was stable. The lumbar measurement is falsely underestimating fracture risk because of degenerative changes. Patient denies any recent exogenous steroids or injectable steroids, her parathyroid function remains normal after the parathyroidectomy in 2019. No other history for an acute illness to contribute to the significant BMD loss. We discussed option to continue the Prolia every 6 months since she had no new fractures or consider switching it to Reclast or Evenity considering the significant decline at the hip which was a surprise. We will make a decision around the time of next Prolia injection in early December. Will have fasting blood work before that visit. In the interim she will continue her current Citracal plus D giving 800 mg of calcium and 1000 IU D3. Her vitamin D level was slightly elevated recently since she has added 5000 IU D3 daily. She will cut this down to once a week. Will recheck labs before next visit. Assessment & Plan (12/04/2024 8:35 PM EST): Recent labs show low magnesium and phosphorus level and normal serum calcium and vitamin D. Lasix added few months ago after CHF. No recent falls or new fracture. Last Prolia injection was at the end of April. -Continue current vitamin D and calcium replacement. -Increase dietary magnesium or add magnesium supplement 400 mg daily. -Repeat magnesium level and phosphorus in a week -Schedule RN appointment for Prolia in 2 weeks. -Continue regular weightbearing exercises -Repeat DEXA after 04/24/2025 and follow-up after DEXA Assessment & Plan (03/27/2024 4:14 PM EDT): Diagnosed with osteoporosis at the time of left wrist fracture in 2019 after a fall. Distal forearm T-score was -4.3, left total hip T-score was -2.3. Secondary workup found primary hyperparathyroidism. The patient is status post subtotal parathyroidectomy in 2019. Risk factors for bone loss include primary hyperparathyroidism, chronic prednisone use in her 40s for RA and PMR and off-and-on thereafter. Low vitamin D intake, suboptimal calcium intake, history of tobacco use, menopause, chronic PPI use. She had a 5.5% improvement at the left total hip bone mineral density between 07/2019 and 08/2021 which is likely related to the parathyroidectomy. She was started on Prolia in the summer 2021 and has received 4 doses so far with last dose on 11/19/2023 at [facility]. She is transferring her endocrine care back to our office. Last DEXA at [facility] on 04/24/23 reported left total hip T -1.6 and right distal forearm T of -4.1. Hip fracture risk by FRAX is 3.6% adjusted to trabecular bone score. Major osteoporotic fracture risk by FRAX is 22.6% adjusted for trabecular bone score. Discussed importance of adequate calcium, vitamin D intake, regular weightbearing exercises and fall prevention. Plan to continue Prolia injections due to on 11/20/2023 what we will set up with our nurse. Increase dietary calcium and protein intake. Continue current vitamin D supplement. Schedule DEXA after 04/24/2025 at [facility]. History of parathyroidectomy 03/27/2024 Assessment & Plan (08/13/2025 9:30 PM EDT): Primary hyperparathyroidism was found at time of secondary workup for osteoporosis in 2019. Patient is status post subtotal parathyroidectomy in 2019. Last labs on 06/26/2025 reviewed: Serum calcium normal at 10.1 with elevated 25-OHD of 67, phosphorus of 4.6 while PTH is low normal at 24. -Will decrease vitamin D intake as above. Assessment & Plan (03/27/2024 4:15 PM EDT): Primary hyperparathyroidism was found at time of secondary workup for osteoporosis in 2019. Patient is status post subtotal parathyroidectomy in 2019. Serum calcium level was normal as well as a 25 OH vitamin D in 12/2023. Chronic anticoagulation 08/23/2023 Assessment & Plan (10/22/2023 9:27 AM EST): Counseled about the importance of blood thinners. Assessment & Plan (08/23/2023 3:03 PM EDT): Continue medications. Tolerating blood thinners without any difficulty. Stage 3a chronic kidney disease 09/07/2021 Assessment & Plan (04/03/2022 8:07 AM EDT): Present but stable Assessment & Plan (09/07/2021 8:48 AM EST): The patient's GFR has decreased from 85-49 in the last 2.5 years. Her BUN is increased albumin is decreased. She feels that she does not drink enough water and she does not have a very good diet. I asked her to speak to her primary care physician for repeat levels and also for referral to nephrology if her GFR does not improve. Hx of hyperparathyroidism 04/26/2021 Assessment & Plan (09/07/2021 8:42 AM EST): PTH and serum calcium remain in the normal reference range. Assessment & Plan (04/26/2021 9:26 AM EDT): Status post parathyroidectomy intact PTH normalized serum calcium levels now within the reference range. Gastroesophageal reflux disease without esophagi tis 02/14/2021 Hiatal hernia 04/12/2020 Overview (04/12/2020): Was due for surgery however she has chosen to postpone this given her response (CHF and a.fib) after parathyroid surgery. Currently managing conservatively with elevation of bed eating smaller meals not eating too late at night no carbonated beverages and cutting down on caffeine. We will add pantoprazole 40 mg daily. H2 cyndi as needed. Other osteoporosis without current pathological fracture 03/28/2020 Assessment & Plan (09/07/2021 8:53 AM EST): The patient has had an improvement in her hip after parathyroidectomy but the forearm remained the same. She does have advanced osteoporosis and I have recommended antiresorptive medications in the past. Presently she is willing to try antiresorptive medications. However I did notice that her GFR is decreasing so I rather not use bisphosphonates although technically she could use a bisphosphonate because her GFR is above 35 mL/min. I think that she needs to have further work- up for decrease in GFR so I rather not use bisphosphonates. I did recommend denosumab which is Prolia a rank ligand antagonist which does not affect renal function. This medication also and [id number] studies has greater increase in bone mineral density. The patient is willing to try this medication. I informed that this medication is a subcutaneous injection every 6 months and she cannot miss an injection. Otherwise this rapid decrease in bone mineral density. The patient is willing to try this medication I have given her a handout of the possible adverse effects for Prolia. This is written in layman's terms. At this point we have to obtain prior authorization for the use of Prolia before we can begin administration. Assessment & Plan (04/26/2021 9:26 AM EDT): The patient continues on calcium vitamin D supplementation. Did not want to use antiresorptive medications decided to wait for repeat DEXA scan due on 08/03/2021 which was requested. She wanted to see how much improvement she had with the bone mineral density. She may reconsider the use of antiresorptive medications in the future. Assessment & Plan (03/28/2020 12:27 PM EDT): Patient underwent parathyroidectomy. She is on calcium and vitamin D supplementation she does not want to try antiresorptive medications at the present time but I think it would definitely be beneficial that she has had parathyroidectomy. She is due for repeat DEXA scan on 08/03/2021. Congestive heart failure wit h left ventricular systolic dysfunction 03/17/2020 Assessment & Plan (08/01/2023 1:52 PM EDT): euvolemic at this time Assessment & Plan (02/07/2023 12:23 PM EDT): Overall symptoms improved with the increased digoxin. Await echo results. Assessment & Plan (01/16/2023 9:31 AM EDT): Worsened edema, 10 pound weight gain, worsening shortness of breath and dyspnea. Denies orthopnea. My main concern is for worsening heart failure, suspect that patient might need a diuretic. Difficult to clearly auscultate on lung exam whether or not there might be some fine crackles. I ordered a chest CT for her about a month ago to follow-up once an opacity that was seen on a chest x-ray this is not happened yet I think now we really need to follow-up on that given her worsened symptoms. She has an echo scheduled for January but she is following up with cardiology today and may see if that can be expedited. Her hypertension is better controlled on this current medication combination but she feels that the symptoms have all come on since she made these changes particularly an increase in the labetalol and addition of Hytrin. Assessment & Plan (12/19/2022 7:17 PM EST): Stable, asymptomatic on current medications, does need to conitnue to improve BP control, working closely with cardiology Assessment & Plan (12/17/2022 10:03 AM EST): She is not complaining of any shortness of breath Assessment & Plan (11/14/2022 11:00 AM EST): Euvolemic at this time Assessment & Plan (07/09/2022 1:07 PM EDT): She is currently euvolemic. Assessment & Plan (04/03/2022 8:07 AM EDT): Euvolemic at the present time Assessment & Plan (01/31/2022 1:00 PM EDT): She has a history of a cardiomyopathy but her most recent echocardiogram showed an EF of 50 to 55%. She is euvolemic on exam and is not describing heart failure symptoms. Assessment & Plan (12/12/2021 9:24 AM EST): She has a history of cardiomyopathy but her most recent echocardiogram showed an EF of 50 to 55%. She is euvolemic on exam is not describing heart failure symptoms. Assessment & Plan (12/05/2021 8:29 AM EST): She is a history of cardiomyopathy but her most recent echocardiogram showed an EF of 50 to 55%. She is euvolemic on exam and is not describing heart failure symptoms. Assessment & Plan (11/21/2021 3:29 PM EST): She has a history of a cardiomyopathy but her most recent echocardiogram shows an EF of 50 to 55%. She is euvolemic and has not reported any symptoms of heart failure. Assessment & Plan (08/10/2021 12:53 PM EDT): Last ECHO in December, reviewed, stable function, on appropriate treatment, HTN better controlled. No edema, crackles or signific RESTREPO Assessment & Plan (01/30/2021 3:46 PM EDT): Appears euvolemic. She does report some bilateral hand and bilateral lower extremity edema however I would say if anything there is trace edema present to her bilateral lower extremities. She denies any shortness of breath. Assessment & Plan (09/26/2020 11:17 AM EST): Currently euvolemic Assessment & Plan (08/29/2020 11:42 AM EST): She denies any RESTREPO/shortness of breath or edema at this time and is currently euvolemic on exam. She will likely be scheduled for repeat echocardiogram next year. Most recent labs showing no electrolyte abnormalities, creatinine 0.9 and GFR 63. We will continue Lasix 20 mg daily. Assessment & Plan (08/01/2020 12:45 PM EDT): Currently euvolemic. Assessment & Plan (07/05/2020 12:22 PM EDT): Currently euvolemic Assessment & Plan (04/05/2020 10:00 AM EDT): As mentioned at some point 2 to 3 months after her heart rate is perfectly controlled we will repeat the echo Assessment & Plan (03/17/2020 4:27 PM EDT): Patient with a history of atrial fibrillation on verapamil and Eliquis. No prior history of CHF exacerbations. Patient started with lower extremity edema, weight gain and shortness of breath which progressively worsened over the past 2 weeks. She denies any orthopnea. Chest x-ray revealed cardiomegaly. Hazy interstitial markings and questionable alveolar opacification, suggesting a pulmonary edema. Small left pleural effusion versus atelectasis adjacent to the heart border. Patient was given 1 dose of IV Lasix 20 mg. -Echocardiogram -Continue IV Lasix 20 mg -Cardiology consult -Daily weights -Strict I's and O's Persistent atrial fibrillation 09/05/2017 Overview (08/01/2020): On verapamil 360 mg daily, anticoagulated on Eliquis 5 mg twice daily and was on Digoxin 0.25mg qd but stopped on 07/28 due to dig level elevated at 2.3. Her heart rate is still a bit variable and on exertion can be as high as 130. Initially on visit today her heart rate was Assessment & Plan (07/08/2024 9:50 AM EDT): Her desire is to be off anti coagulant, will discuss Watchman procedure with Dr. Baker. Assessment & Plan (10/22/2023 9:27 AM EST): Claims her heart rate is better controlled. In view of her age and severely dilated left atrium we will continue with rate control. Assessment & Plan (08/23/2023 3:02 PM EDT): We had a detailed discussion with regards to rate control versus rhythm control. Patient at this point opted for rate control. In view of her age, severely dilated left atrium and reasonable activity while in atrial fibrillation patient feels she wants to continue with rate control strategy. In view of normal ejection fraction will stop digoxin. Will increase the labetalol to 200 mg 3 times daily. We will follow-up in 6 weeks Assessment & Plan (08/01/2023 1:52 PM EDT): She says that she feels the episodes of atrial fibrillation as a nervousness in her chest I am going to send her to our hull line crew member for further management. EKG today shows atrial fibrillation with relatively slow ventricular response although the ECG is recording 60 bpm Assessment & Plan (07/10/2023 1:59 PM EDT): Verapamil now stopped, doing well on digoxin, for rare Symptomatic episodes she does take a second dose which is effective Assessment & Plan (01/16/2023 10:32 AM EDT): At this time I am going to add back digoxin but at half the dose that she was on as her digoxin level with 0.25 was 2.3. We are going to cut verapamil to 120 mg a day. Assessment & Plan (11/14/2022 11:00 AM EST): This patient has PAF on a lot of AV node blocking agents as listed above but heart rate is perfectly controlled. She is not getting any bleeding complication other than bruising from thin subcutaneous tissue Assessment & Plan (07/09/2022 1:06 PM EDT): This patient has infrequent atrial fibrillation which she feels and is on verapamil and Eliquis for this Assessment & Plan (04/23/2022 4:13 PM EDT): Asymptomatic. Rate controlled with verapamil. Appropriately anticoagulated with Eliquis. Assessment & Plan (11/28/2020 9:21 AM EST): She is on oral anticoagulation and verapamil and metoprolol for rate control I am going to add Norvasc which I know is a second calcium channel cyndi but will probably work quite well on her pressure and not have anything to do with her rate control I will see her back in follow-up in 3 months time Assessment & Plan (09/26/2020 11:17 AM EST): She has atrial fibrillation about 7% of the time she is on oral anticoagulation and rate control with a small dose of metoprolol which if blood pressure is still an issue I may increase next visit. Assessment & Plan (08/29/2020 12:45 PM EST): Patient has a history of paroxysmal atrial fibrillation and we have seen her a few times over the past few months for rate control purposes. She was unable to tolerate digoxin so that has been discontinued. She has been unable to tolerate higher doses of metoprolol without fatigue and needing to nap. So for now, we will continue her on her current dose of metoprolol 25 mg daily which she is tolerating. We will continue Eliquis 5 mg twice a day for anticoagulation purposes which she is tolerating without bleeding complaint. She does endorse being able to feel when she goes in and out of A. fib, but the episodes are quite brief usually only lasting minutes at a time and she does not seem to be overly bothered by this. Recent loop monitor showing 7% atrial fibrillation burden. We will continue her at her verapamil dose 480 mg that was increased on her previous visit and she has tolerated thus far. Per recent monitor, her rate seems to be well controlled with average heart rate 55 on current medication regimen. Assessment & Plan (08/01/2020 1:32 PM EDT): On verapamil 360 mg daily, anticoagulated on Eliquis 5 mg twice daily and was on Digoxin 0.25mg qd but stopped on 07/28 due to dig level elevated at 2.3. Her heart rate is still a bit variable and on exertion can be as high as 130. Today her heart rate was in the 60s but states she usually is between 70-90s when she takes it ever day with her BP. Discussed increasing Verapamil to 480 mg qd Assessment & Plan (07/05/2020 12:22 PM EDT): She is on Eliquis 5 twice a day and as mentioned we need to add back more rate control so we are prescribing digoxin 0.25 mg daily. We will remonitor her in about a month I will see her thereafter in follow-up hopefully her ejection fraction after heart rate is well controlled will normalize. Assessment & Plan (04/05/2020 10:00 AM EDT): Basically persistent atrial fibrillation with poor rate control resulting in lowering of her ejection fraction I am adding metoprolol 50 mg at night having an event monitor done I will follow-up with her thereafter. Assessment & Plan (03/17/2020 4:30 PM EDT): Patient noted to have atrial fibrillation with RVR on arrival to the emergency department with heart rates in the 140s. Patient states that typically her atrial fibrillation does not go above 110. She has been maintained on Eliquis and verapamil which is done really well for her. She mentions that when her atrial fibrillation is active she presents with palpitations however did not feel any of this on this admission. Currently her heart rate is noted in the low 100s and has improved after receiving IV dose of Lasix. This is felt that this may be active at this point secondary to her CHF exacerbation. -Continue Eliquis 5 mg p.o. twice daily -Continue verapamil 240 mg daily Assessment & Plan (09/05/2017 2:52 PM EST): Very pleasant 71-year-old female with paroxysmal atrial fibrillation and chads VASC score of 3. She will need an echo ablation and I have given a prescription of 5 minutes twice a day of Eliquis. For her atrial fibrillation she needs tighter control is already on verapamil but obviously is not helping her A. fib. I will change her diltiazem 180 and metachloral 50 twice a day for better control. She'll keep an eye on her blood pressure and keep me posted. I will see her back in 3 months. She also has history which is very strongly suggestive sleep apnea. With new onset A. fib and the ongoing uncontrolled hypertension she needs a sleep study for evaluation I will send her for a sleep study to follow. Essential hypertension 09/05/2017 Assessment & Plan (07/08/2024 9:24 AM EDT): Stable on current medications. Assessment & Plan (03/27/2024 8:19 AM EDT): Rate controlled and BP excellent, but clearly having side effects form higher dose of beta cyndi. We will cautiously back down to twice daily and she will call her specialist to make an appt, she will have some data regarding her response to the decreased dose and be able to follow up with any improvement or worsening Assessment & Plan (10/22/2023 9:28 AM EST): Blood pressures are better controlled at home. Continue same medications. Following up with PCP. Assessment & Plan (08/01/2023 1:52 PM EDT): high today but she says much better controlled at home Assessment & Plan (07/10/2023 1:56 PM EDT): Greatly improved on lisinopril. Continue to monitor Assessment & Plan (04/08/2023 10:11 AM EDT): Better control on current medication regimen Assessment & Plan (02/07/2023 12:24 PM EDT): We will increase the hytrin at this point to see If we can get better control. She wants off the labetalol and we could consider a slow wean once her pressures are better Assessment & Plan (01/16/2023 10:42 AM EDT): Better controlled I did look at a blood pressure log from home which has most readings near guidelines Assessment & Plan (12/17/2022 10:03 AM EST): Not controlled we are going to go back down to the 100 twice a day of labetalol and add Hytrin a milligram at night for the first week and then increase this to 2 mg thereafter I will see her in 1 month Assessment & Plan (11/14/2022 11:00 AM EST): Not adequately controlled I am going to slowly increase her labetalol to 150 twice a day as she had side effects from higher doses in the past Assessment & Plan (09/19/2022 8:34 PM EST): Difficult to control blood pressure. Maxxed on all current meds. Has tried nearly all the available typical agents. Metoprolol did control her pressures well but made her sick. I do think another beta cyndi might be helpful. States she has tried sanchez in the past, but in combo with another drug. I do think sanchez might be helpful if labetalol fails. Assessment & Plan (08/09/2022 9:30 AM EDT): Discussed with Monica that when someone is on this many medications for blood pressure really its beyond primary care management. However I do understand that she is feeling acutely symptomatic from the Coreg. I think that it is reasonable for us to try a different beta-cyndi, she can continue home monitoring. If her side effect resolves and were able to maintain steady control of her blood pressure I think that that fine. Additionally, if the diarrhea persists or we are unable to control the blood pressure then we will do a more comprehensive work-up for reasons for diarrhea and send her back to cardiology. I will let cardiology know that it made this change. Assessment & Plan (07/09/2022 1:06 PM EDT): Blood pressure is still an issue we are going to double her carvedilol to 25 twice a day. 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 She has an allergy to amlodipine. Is on maximum doses of enalapril, HCTZ and verapamil. Significant, lifestyle limiting side effects on highest dose of carvedilol. Will decrease carvedilol back down to 12.5 mg BID and start 25 mg hydralazine TID. She was encouraged to continue to check her blood pressures at home. She follows a low sodium diet and is fairly active. I will see her back in one month for a BP recheck. Assessment & Plan (04/03/2022 8:07 AM EDT): This patient needs more in the way of blood pressure control we have stopped the spironolactone and will increase carvedilol to 25 twice a day. Assessment & Plan (02/08/2022 8:08 AM EDT): Seems to have improved on increased HCTZ and small dose sanchez. Continuing to follow up with Cardiology Assessment & Plan (01/31/2022 12:59 PM EDT): Blood pressure in the office today is well much better today, 130/66 after sitting for a few minutes. I suggested that she reduce her spironolactone back to the 25 mg daily as she did not have side effects to that dose. She will continue with carvedilol 12.5 mg twice daily, verapamil, enalapril, and HCTZ. She recently had a renal artery ultrasound which was normal showing no renal artery stenosis. She has a previously arranged appointment with Dr. Rivera coming up in March. Assessment & Plan (12/19/2021 3:13 PM EST): Her blood pressure in the office today is still elevated. Initially was 198/70. On recheck, I got 148/70. She did not tolerate the maximum dose of carvedilol 25 mg twice daily so she is back down to 12.5 mg twice daily. She should continue her current doses of enalapril, verapamil, and HCTZ. I have increased her spironolactone to 50 mg once daily. I have asked her to have a renal artery ultrasound to rule out a renal artery stenosis. I will also get a metanephrine level to rule out a pheochromocytoma. She has a follow-up with Dr. Rivera in a week. I will see her after her testing is been completed. Assessment & Plan (12/12/2021 9:23 AM EST): Her blood pressure in the office today is still elevated at 150/60. She has not tolerated the maximum dose of carvedilol at 25 mg twice daily. I have suggested that she go back down to 12.5 mg twice daily. She should continue her current doses of enalapril, verapamil, and HCTZ. I have prescribed 25 mg of spironolactone to be taken once daily. She will have labs in a week. I will follow-up with her in a week. Assessment & Plan (12/05/2021 8:29 AM EST): Her blood pressure in the office today is still high but not as high as it was at her last office visit. She has been taking the 50 mg of HCTZ in addition to her enalapril, carvedilol, and verapamil. She is willing to go back up on the carvedilol to 25 mg twice daily. She believes that that did help with managing her blood pressure. We will try the higher dose of carvedilol and I will follow-up with her in 1 to 2 weeks for continued management of her blood pressure. Assessment & Plan (11/21/2021 3:28 PM EST): Her blood pressure today is quite high. She believes it is due to her recent dosing with prednisone which she stopped today. Her blood pressure in the office was [id number]. On recheck, it was 194/90. I have suggested that she take the 50 mg of HCTZ. It was previously increased to 50 mg but she was not taking the higher dose. We will follow-up in a week or 2 for continued management of her blood pressure. She will continue with her current doses of enalapril, carvedilol, and verapamil. Assessment & Plan (08/15/2021 8:15 AM EDT): She comes in today with complaints of general weakness, increasing headaches and stomach issues since her carvedilol was increased to 25 mg twice daily. Hydralazine 25 mg daily was added to her regimen which helped improve her blood pressures but has not brought them to goal which would be less than 140/80. We will decrease her carvedilol back to 12.5 mg twice daily she says she says she feels better at that dose. I will increase her hydralazine to 50 mg daily to see if this improves her blood pressure. She will continue to check her blood pressures at home. She will follow up in 3 to 4 weeks for blood pressure check and medication management if indicated. Assessment & Plan (08/10/2021 12:53 PM EDT): Better controlled on current regimen, monitor Assessment & Plan (05/26/2021 3:24 PM EDT): Blood pressure is elevated at 164/80. Her initial reading was 184/78. She states that she checks her blood pressures in the morning and her blood pressures have typically been running 120-140 systolic. She is tolerating the Coreg 12.5 mg twice daily without an issue. She recently started methotrexate for her arthritis. She does complain that she has a lot of pain due to this. She thinks this is contributing to her high blood pressure. She is also on enalapril 20 mg twice daily, furosemide 20 mg daily, verapamil 480 mg daily. Her amlodipine was discontinued due to an allergic reaction. Losartan was discontinued for an inadequate blood pressure control. She was asked to continue to watch her blood pressures at home and if they are elevated greater than 130/80 consistently we will have to consider an additional antihypertensive or increasing her Coreg. Assessment & Plan (04/19/2021 1:57 PM EDT): Blood pressure is elevated today at 164/88 and was rechecked for 156/90. She reports that her blood pressures remain elevated even at home despite her medication change of carvedilol 6.25 mg twice daily. I increased her carvedilol to 12.5 mg twice daily today. We will see her back in the office in 3 to 4 weeks. She has been on multiple hypertensives which have not worked for her. She reports that she was on valsartan and hydrochlorothiazide as well as amlodipine which she had a allergic reaction to. Her other medications include furosemide 20 mg daily, [id number] mg daily, enalapril 20 mg twice daily. Assessment & Plan (03/17/2021 3:24 PM EDT): Blood pressure in the office today was 142/80. She continues to check her blood pressures at home and reports that the amlodipine 10 mg daily did not do any thing for her blood pressure. She does report having some adverse reactions such as bilateral lower extremity edema, postnasal drip, headache and facial swelling including eyes lips and tongue. She discontinued the Norvasc 2 days ago took some Benadryl and increased her prednisone which she is already on for her arthritis and her symptoms resolved. She did not want to increase her metoprolol given she has fatigue while on it. We will discontinue her amlodipine 10 mg daily and add Coreg 3.125 mg twice daily and discontinuing her metoprolol to see if this helps with her tiredness and give her better blood pressure control. She has a follow-up in July and can be seen at that time if she is not having any other adverse reactions to the carvedilol. Additionally she is asked to continue checking her blood pressures at home to notice any hypertensive trends of blood pressures greater than 130/80. Her blood pressures have been running in the 140s at home. Her blood pressure goal will be less than 130/80. Assessment & Plan (01/30/2021 3:45 PM EDT): Blood pressure is much better controlled at 146/70 on initial blood pressure reading however was rechecked and got 136/70. She states she checks her blood pressures at home and has been getting a systolic range in the 140s. She is on amlodipine 10 mg daily, metoprolol 25 mg daily, verapamil 480 mg daily, enalapril 20 mg daily. Additionally she is on Lasix 20 mg daily. She has had an increase in some swelling to her bilateral lower extremities however this is barely noticeable and if becomes troublesome she can try to take an additional 10 mg of furosemide to see if this helps. She was taken off her losartan due to inadequate blood pressure control and started on amlodipine. She has been on multiple antihypertensive and does not wish to switch to another one at this time due to having some unwanted side effects especially her metoprolol being increasingly tired and sleeping throughout the day. Assessment & Plan (11/28/2020 9:22 AM EST): Inadequately controlled hopefully the addition of Norvasc when we stopped the losartan will get her to target Assessment & Plan (09/26/2020 11:17 AM EST): Inadequately controlled at this time we are stopping Cardura and adding losartan I am checking electrolytes and renal function in a month Assessment & Plan (08/29/2020 12:46 PM EST): Blood pressure in the office today 164/70, on my recheck 158/78. Patient states that her PCP also told her that her blood pressures were elevated at recent visit a few weeks ago. She does endorse checking her blood pressures at home and they are elevated in the 150s systolic. She states that she does not use excess sodium and tries to limit her sodium intake regularly. She does state compliance with medication regimen currently. Today I will increase her doxazosin from 4 mg daily to 8 mg daily. I would like to see her back in 1 month to reassess. She is agreeable to check her blood pressures at home in the meantime and keep track of them for us. Pending that her BP is not at goal <130/90 in 1 month, should titrate medications further. Assessment & Plan (08/01/2020 1:34 PM EDT): Well-controlled continue medication. States at home her BP is always in the 120s-130s never goes into the 140s. States it is always a bit higher when she comes to the office. Assessment & Plan (07/05/2020 12:22 PM EDT): Well-controlled Assessment & Plan (04/05/2020 10:00 AM EDT): Well-controlled at the present time Assessment & Plan (03/17/2020 4:28 PM EDT): Continue verapamil, doxazosin, enalapril. Monitor closely as the patient will also be given IV Lasix for treatment of acute CHF exacerbation Assessment & Plan (09/05/2017 2:51 PM EST): Blood pressure today is elevated she says at home it is slightly better. I'll change the medications around and will keep an eye on the blood pressure at home and she will call me for stays elevated. My guess is she will need more BP medications. Resolved Problems Problem Noted Date Diagnosed Date Resolved Date Stage 3b chronic kidney disease 02/08/2022 07/10/2023 Assessment & Plan (02/08/2022 10:12 AM EDT): Reviewed her lab trend which show a marked increase in her creatnine over the last few months and decrease in GFR. I wonder if the med changes are at the root of this and I would like nephrology to weigh in on what if anything beyond monitoring is indicated at this time. Paroxysmal atrial fibrillation 02/14/2021 07/10/2023 Assessment & Plan (01/16/2023 10:42 AM EDT): I have ordered an expedited echo which we will get done within the next week or 2 I will see her or one of the midlevel's we will see her in 1 month Assessment & Plan (12/17/2022 10:03 AM EST): She is tolerating well the Eliquis for oral anticoagulation without any bleeding complications. Assessment & Plan (04/03/2022 8:07 AM EDT): Asymptomatic and on oral anticoagulation without bleeding complications Assessment & Plan (01/31/2022 1:00 PM EDT): She has a history of paroxysmal atrial fibrillation. She is rate controlled on carvedilol and verapamil. Continue with Eliquis. Assessment & Plan (12/19/2021 3:12 PM EST): She has a history of paroxysmal atrial fibrillation. She is rate controlled on carvedilol and verapamil. Continue with Eliquis. Assessment & Plan (12/12/2021 9:22 AM EST): She has paroxysmal atrial fibrillation. She is rate controlled on carvedilol and verapamil. Continue with Eliquis. Assessment & Plan (12/05/2021 8:28 AM EST): She has paroxysmal atrial fibrillation. She is rate controlled on carvedilol and verapamil. Continue with Eliquis. Assessment & Plan (11/21/2021 3:25 PM EST): She has paroxysmal atrial fibrillation. She is rate controlled on carvedilol and verapamil. Continue with Eliquis. Primary hyperparathyroidism 10/17/2017 04/26/2021 Assessment & Plan (11/28/2020 9:22 AM EST): Well treated at this time Assessment & Plan (04/05/2020 10:00 AM EDT): This patient had parathyroid surgery and is recovering well from it Assessment & Plan (03/28/2020 12:27 PM EDT): Patient is now status post parathyroidectomy. Intact PTH levels have normalized serum calcium levels are within the reference range. She is taking calcium supplementation 2 pills once daily and I advised her to take 1 pill twice a day with food for better calcium absorption. Assessment & Plan (03/17/2020 4:20 PM EDT): Status post parathyroidectomy at the end of December. Since the procedure the patient has been extremely fatigued. Calcium level 8.8/ionized calcium 1.10. TSH 1.67 Assessment & Plan (08/28/2019 10:51 AM EDT): The patient has primary hyperparathyroidism known since 2011. She has one indication for surgery and this is osteoporosis the right forearm T score is -4.0 which is significant and I think it would be beneficial for the patient to undergo parathyroidectomy as indicated in the HPI she does not have the other indications for surgery. I would like her to meet with the endocrine surgeon for further discussion and see if she is a candidate for this procedure. Assessment & Plan (05/22/2019 10:22 AM EDT): The patient appears to have primary hyperparathyroidism since as early as 2011. Fortunately I do not have any repeat labs and I think that is best just to repeat everything. I need comprehensive levels I would like to check a CBC as well for evaluation of anemia and check a monoclonal proteins for evaluation of multiple myeloma since her history of elevated serum calcium levels. I would like to check for hyperthyroidism although she informs me that she has normal thyroid function studies because hypothyroidism can result in calcium resorption and nephrolithiasis. And the patient does have calcium oxalate in her urine. I would like to also repeat the intact PTH obtain vitamin D levels including active vitamin D which is elevated with primary hyperparathyroidism and obtain a repeat DEXA scan since her last was done in 2011 lastly I want to repeat the 24-hour urine calcium creatinine levels. Encounters Date Type Department Care Team Description 08/10/2025 3:20 PM EDT Office Visit [facility] [address] [place] [address] [place] [address] Xiang Bejarano MD Age-related osteoporosis without current pathological fracture (Primary Dx); History of parathyroidectomy 07/27/2025 9:16 AM EDT - 07/27/2025 11:59 PM EDT Hospital Encounter [facility] - [address] [address] Xiang Bejarano MD Discharge Disposition: Home or Self Care 06/30/2025 2:00 PM EDT Nurse Only [facility] [address] [place] [address] Xiang Bejarano MD Other osteoporosis without current pathological fracture (Primary Dx) 06/26/2025 8:01 AM EDT - 06/26/2025 11:59 PM EDT Hospital Encounter [facility] [address] [place] [address] Janie Pina MD Discharge Disposition: Home or Self Care 06/25/2025 Telephone [facility] [address] [place] [address] Angela Garcia, career services manager Prior Authorization (PROLIA) 06/24/2025 Orders Only [facility] [address] [place] [address] Janie Pina MD Age-related osteoporosis without current pathological fracture (Primary Dx) from Last 3 Months Immunizations Immunization Administration Dates Next Due COVID-19 (Pre-08/19) Pfizer Vaccine, mRNA, PF 12/23/2020,12/02/2020 Hepatitis B Adult 01/24/2016,08/25/2015,07/26/20 15 Influenza High-Dose Quadriva lent Preservative Free IM 07/10/2023,08/09/2022,07/28/2020 Influenza High-Dose Trivalen t Preservative Free IM 07/08/2024,07/28/2020,07/31/2019,08/12,07/27/2017,08/21/2016,07/26/2015 ,07/17/2014,07/23/2013,07/08/2012 Influenza, Unspecified Formulation 07/08,07/21/2021,08/01/2020,07/27,08/21/2016,07/26/2015,07/17/2014 ,07/23/2013,07/08/2012,07/28/2011,08/28 Pneumococcal conjugate PCV13 10/16/2013 Pneumococcal conjugate PCV21 07/19/2025 Pneumococcal polysaccharide PPSV23 11/10/2009 RSV Vaccine (bivalent) 07/16/2023 Td, unspecified formulation 05/31/2008 Tdap 03/18/2019 Zoster live 05/31/2008 Zoster recombinant 03/18/2019,10/01/2018 Family History Medical History Relation Comments Heart disease Father Hyperlipidemia Father Stroke Father Diabetes Mother Heart disease Mother Hyperlipidemia Mother Relation Status Comments Father Mother Social History Tobacco Use Types Packs/Day Years Used Date Smoking Tobacco: Former Cigarettes 1 20 1 980 - 1999 Passive Smoke Exposure: Past Smokeless Tobacco: Never Tobacco Cessation:Counseling Given: Not Answered Alcohol Use Standard Drinks/Week Comments No 0 [...] Orientation Straight 03/17/2020 11 :24 AM EDT Last Filed Vital Signs Vital Sign Reading Time Taken Comments Blood Pressure 144/90 08/10/2025 3:43 PM EDT Pulse 71 08/10/2025 3:43 PM EDT Temperature 35.9 C (96.6 F) 07/29/2024 4:31 PM EDT Respiratory Rate 20 08/10/2025 3:43 PM EDT Oxygen Saturation 98% 08/10/2025 3:43 PM EDT Inhaled Oxygen Concentration - - Weight 63.6 kg (140 lb 3.2 oz) 08/10/2025 3:43 P M EDT Height 152.4 cm (5') 08/10/2025 3:43 PM EDT Body Mass Index 27.38 08/10/2025 3:43 PM EDT Plan of Treatment Upcoming Encounters Date Type Department Care Team (Late st Contact Info) Description 09/29/2025 8:20 AM EST Office Visit [facility] [address] [address] Pina Guerra MD [address] [address] 10/13/2025 1:15 PM EST Office Visit [facility] [address] [place] [address] Xiang Bejarano MD [address] [place] [phone] [email or web address] King, PT [address] [place] [address] 10/25/2025 12:30 PM EST Office Visit [facility] 8 [place] [address] Xiang Bejarano MD [address] [place] [phone] [email or web address], PT 8 [place] [address] 10/29/2025 1:30 PM EST Office Visit [facility] 8 [place] [address] Xiang Bejarano MD [address] [place] [phone] [email or web address], PT 8 [place] [address] 11/01/2025 1:00 PM EST Office Visit [address] [address] Xiang Bejarano MD [address] [place] [phone] [email or web address], CLINICAL MARKETING MANAGER [address] [place] [address] 11/04/2025 1:45 PM EST Office Visit [address] [address] Xiang Bejarano MD [address] [place] [phone] [email or web address], CLINICAL MARKETING MANAGER 8 [place] [address] 11/08/2025 12:30 PM EST Office Visit [address] [address] Xiang Bejarano MD [address] [place] [phone] [email or web address], PT 8 [place] [address] 11/11/2025 1:00 PM EST Office Visit [facility] 8 [place] [address] Xiang Bejarano MD [address] [place] [phone] [email or web address], CLINICAL MARKETING MANAGER 8 [place] [address] 11/15/2025 1:00 PM EST Office Visit [facility] 8 [place] [address] Xiang Bejarano MD [address] [place] [phone] [email or web address], CLINICAL MARKETING MANAGER [address] [place] [address] 11/18/2025 12:15 PM EST Office Visit [facility] [address] [place] [address] Xiang Bejarano MD [address] [place] [phone] [email or web address], PT [address] [place] [address] 12/29/2025 10:00 AM EST Office Visit [facility] [address] [place] [address] Xiang Bejarano MD [address] [place] [phone] [email or web address] Maintenance Due Date Last Done Comments DEPRESSION SCREENING 08/07/2022 08/07/2021 COVID-19 VACCINE ( season) 2025 10/13/2024, 07/16/2023, 07/26/2022, Additional history exists LIPID PANEL 08/29/2025 08/29/2020, 04/28, 03/14/2015 BLOOD PRESSURE 02/08/2026 08/10/2025 CREATININE LEVEL 06/26/2026 06/26/2025, , 02/15/2025, Additional history exists POTASSIUM LEVEL 06/26/2026 06/26/2025, 03/2025, 10/06/2024, Additional history exists Adult Td,Tdap Booster 03/18/2029 03/18/2019, 008 ZOSTER VACCINES Completed 03/18/2019, 02/2018, 05/31/2008 RSV VACCINE Completed 07/16/2023 INFLUENZA VACCINE Completed 07/08/2025, , 07/10/2023, Additional history exists PNEUMOCOCCAL VACCINES (50+ years) Completed 07/19/2025, 10/16/2013, 11/10/2009 OSTEOPOROSIS SCREENING INITIAL (ONE-TIME) Completed 07/27/2025, 09/05/2021, 08/03/2019 SMOKING STATUS SCREENING (Once After 26 Yrs) Completed 08/10/2025 HEPATITIS A VACCINES Aged Out No long er eligible based on patient's age to complete this topic HIB VACCINES Aged Out No longer eligi ble based on patient's age to complete this topic MENINGOCOCCAL VACCINES (ACWY) Aged Out No longer eligible based on patient's age to complete this topic MENINGOCOCCAL VACCINES (B) Aged Out N o longer eligible based on patient's age to complete this topic Medical Devices Not on file Procedures Procedure Name Priority Date/Time Associated Diagnosis Comments BD DXA SPINE AND HIP WITH FOREARM Routine 07/27/2025 10:14 AM EDT Age-related osteoporosis without current pathological fracture COMPREHENSIVE METABOLIC PANEL (CMP) Routine 06/26/2025 8:06 AM EDT Age-related osteoporosis without current pathological fracture 25-OH VITAMIN D Routine 06/26/2025 8:06 AM EDT Age-related osteoporosis without current pathological fracture COLLAGEN TYPE 1B-TELOPEPTIDE, BLOOD Routine 06/26/2025 8:06 AM EDT Age-related osteoporosis without current pathological fracture PARATHYROID HORMONE (PTH) Routine 06/26/2025 8:06 AM EDT Age-related osteoporosis without current pathological fracture PHOSPHORUS Routine 06/26/2025 8:06 AM EDT Age-related osteoporosis without current pathological fracture LIPID PANEL Routine 08/29/2020 10:16 AM EST Essential hypertension from Last 3 Months or Most Recently Relevant to Health Maintenance Results * BD DXA SPINE AND HIP WITH FOREARM (07/27/2025 10:14 AM EDT) Anatomical Region Laterality Modality Bone Density Bone Density 07/27/2025 9:57 AM EDT Impressions 07/28/2025 11:52 AM EDT Interpretation: Osteoporosis. Narrative 07/28/2025 11:52 AM EDT Referred By: XIANG BEJARANO Indications: Primary Hyperparathyroidism and Long-Term Osteoporosis Treatment Scanner: Sun [employer] A with serial# of [id number] located at [facility] Bone Density Scan (DXA) 07/27/25 Details of prior DXA scans are available by clicking View Full Report BMD T- Z- Skeletal Site gm/cm2 score score BMD Change Since Prior Scan ------ ----- ----- PA Spine (L2) 1.542 4.70 7.30 0.117 (8.2%)* since 08/03/2019 Total Hip (Left) 0.604 -2.80 -0.70 -0.095 (-13.6%)* since 09/05/2021 Femoral Neck (Left) 0.641 -1.90 0.50 -0.100 (-13.5%)* since 09/05/2021 1/3 Radius (Right) 0.446 -4.10 -0.80 0.012 (stable) since 09/05/2021 ------ ----- ----- * Denotes significant change when >= 0.022 g/cm2 for the spine, 0.027 g/cm2 for the total hip, 0.029 g/cm2 for the femoral neck, 0.023 g/cm2 for the forearm (1/3 radius). Interpretation: Osteoporosis. Technical Quality: The PA Spine scan was of marginal quality because of scoliosis (which can decrease or increase BMD) and sclerosis or fracture (which increase BMD). NOTE: We newly excluded one or more vertebrae. To allow comparisons with prior tests, we recalculated the total BMD of all prior spine tests after excluding the same vertebra(e). Because only two vertebrae are measurable, interpret PA spine results with caution; serial changes may be more variable than usual. FRAX: A FRAX(r) score is not provided because the patient has osteoporosis, which is generally an indication for treatment. Reviewed By: Nick Jeronimo MD on 07/28/2025 11:52:27 Additional Information: -World Health Organization criteria classify adults based on lowest T-score at PA spine, hip or forearm: Normal (T-score >= -1.0), Osteopenia (T-score between -1 and -2.5), or Osteoporosis (T-score <= -2.5). At [facility], T-scores are compared to peak bone density of a young white gender matched reference population. - For premenopausal women and men under the age of 50, Z-scores (comparison to age, gender, and ethnicity matched reference population) are used: Above expected range for age (Z-score >= 2.0), Within expected range of age (Z-score 1.9 to -1.9), or Below expected range for age (Z-score <= -2.0). - The Bone Health and Osteoporosis Foundation recommends that treatment be considered in men aged more than 50 years and in postmenopausal women with ANY of the following: Prior hip or vertebral fractures; T-score of <= -2.5 at the PA spine or hip; or 10 year fracture probability by FRAX of >= 3% for the hip or >= 20% for major osteoporotic fracture. - The FRAX algorithm (https://www.vicki.ac.uk/FRAX/tool.aspx) is designed to predict 10-year fracture risk in treatment-naive adults between the ages of 40 and 90. It is not intended to be used in those receiving pharmacologic osteoporosis treatment. - The TBS is derived from the texture of the DXA spine image and has been shown to be related to bone microarchitecture and fracture risk. This data provides information independent of BMD value. It adds to fracture risk assessment with a FRAX adjusted for TBS score. If your patient had a TBS and qualified for a FRAX score, the reported FRAX score has been adjusted for TBS. TBS Score Interpretation 1.350 and greater Normal bone microarchitecture 1.200 to 1.350 Partially degraded bone microarchitecture 1.200 and less Degraded bone microarchitecture - Including race/ethnicity in the generation of T- or Z-scores or in the FRAX calculation is complicated, and currently undergoing active review to ensure that we can give patients the best information on their risk of fracture. - Some prior studies may not be compatible with our comparison software. - Click on View Full Report to see subsequent pages with images and prior bone density results. Procedure Note Nick Jeronimo MD - 07/28/2025 Referred By: XIANG BEJARANO Indications: Primary Hyperparathyroidism and Long-Term OsteoporosisTreatment Scanner: Sun [employer] A with serial# of [id number] located at [facility] Bone Density Scan (DXA) 07/27/25 Details of prior DXA scans are available by clicking View Full Report BMD T- Z- Skeletal Site gm/cm2 score score BMD Change Since Prior Scan ------ ----- PA Spine (L2) 1.542 4.70 7.30 0.117 (8.2%)* since08/03/2019 Total Hip (Left) 0.604 -2.80 -0.70 -0.095 (-13.6%)* since09/05/2021 Femoral Neck (Left) 0.641 -1.90 0.50 -0.100 (-13.5%)* since09/05/2021 1/3 Radius (Right) 0.446 -4.10 -0.80 0.012 (stable) since09/05/2021 ------ ----- * Denotes significant change when >= 0.022 g/cm2 for the spine, 0.027g/cm2 for the total hip, 0.029 g/cm2 for the femoral neck, 0.023 g/cm2 for the forearm (1/3 radius). Interpretation: Osteoporosis. Technical Quality: The PA Spine scan was of marginal quality because of scoliosis (which can decrease or increase BMD) and sclerosis or fracture (which increase BMD). NOTE: We newly excluded one or more vertebrae. To allow comparisons with prior tests, we recalculated the total BMD of all prior spine tests after excluding the same vertebra(e). Because only two vertebrae are measurable, interpret PA spine results with caution; serial changes may be more variable than usual. FRAX: A FRAX(r) score is not provided because the patient hasosteoporosis, which is generally an indication for treatment. Reviewed By: Nick Jeronimo MD on 07/28/2025 11:52:27 Additional Information: -World Health Organization criteria classify adults based on lowestT-score at PA spine, hip or forearm: Normal (T-score >= -1.0), Osteopenia (T-score between -1 and -2.5), or Osteoporosis (T-score <= -2.5). At [facility], T-scores are compared to peak bone density of a young white gender matched reference population. - For premenopausal women and men under the age of 50, Z-scores(comparison to age, gender, and ethnicity matched reference population) are used:Above expected range for age (Z-score >= 2.0), Within expected range of age (Z-score 1.9 to -1.9), or Below expected range for age (Z-score <= -2.0). - The Bone Health and Osteoporosis Foundation recommends that treatment be considered in men aged more than 50 years and in postmenopausal women with ANY of the following: Prior hip or vertebral fractures; T-score of <= -2.5 at the PA spine or hip; or 10 year fracture probability by FRAX of >= 3%for the hip or >= 20% for major osteoporotic fracture. - The FRAX algorithm (https://www.vicki.ac.uk/FRAX/tool.aspx) is designed to predict 10-year fracture risk in treatment-naive adultsbetween the ages of 40 and 90. It is not intended to be used in those receiving pharmacologic osteoporosis treatment. - The TBS is derived from the texture of the DXA spine image and has been shown to be related to bone microarchitecture and fracture risk. This data provides information independent of BMD value. It adds to fracture risk assessment with a FRAX adjusted for TBS score. If your patient had a TBSand qualified for a FRAX score, the reported FRAX score has been adjusted for TBS. TBS Score Interpretation 1.350 and greater Normal bone microarchitecture 1.200 to 1.350 Partially degraded bone microarchitecture 1.200 and less Degraded bone microarchitecture - Including race/ethnicity in the generation of T- or Z-scores or in the FRAX calculation is complicated, and currently undergoing active review to ensure that we can give patients the best information on their risk of fracture. - Some prior studies may not be compatible with our comparison software. - Click on View Full Report to see subsequent pages with images andprior bone density results. IMPRESSION: Interpretation: Osteoporosis. Xiang Bejarano MD IMG BD BONE DENSITY DEXA Final Result * Collagen type 1b-telopeptide, blood (06/26/2025 8:06 AM EDT) Pathologist [facility] Collagen CTx 262 pg/mL [facility] MED[facility] Comment: (NOTE) REFERENCE VALUE 148-967 (18-29 y) 150-635 (30-39 y) 131-670 (40-49 y) 183-1060 (50-59 y) 171-970 (60-69 y) 152-858 (>70 y) 136-689 (Premenopausal) 177-1015 (Postmenopausal) Flagging is based on the age-specific reference interval and not menopausal status. Blood 06/26/2025 8:06 AM EDT 06/26/2025 8:12 AM EDT Janie Pina MD LAB BLOOD BKR ORDERABL ES Final Result [facility] MED/PATH [facility] [address] [place] [address] * (ABNORMAL) Comprehensive metabolic panel (06/26/2025 8:06 AM EDT) Pathologist [facility] SODIUM 140 133 - 146 mmol/L [facility] POTASSIUM 3.9 3.3 - 5.1 mmol/L [facility] CHLORIDE 97 96 - 108 mmol/L [facility] CO2 29 21 - 35 mmol/L [facility] BUN 30(H) 6 - 19 mg/dL [facility] CREATININE 0.90 0.5 - 1.5 mg/dL [facility] GLUCOSE 91 70 - 99 mg/dL [facility] ALBUMIN 4.2 3.9 - 4.8 g/dL [facility] TOTAL PROTEIN 7.0 6.5 - 8.0 g/dL [facility] CALCIUM 10.1 8.4 - 10.3 mg/dL [facility] ALKALINE PHOSPHATASE 72 39 - 117 U/L [facility] TOTAL BILIRUBIN 0.5 0.0 - 1.2 mg/dL [facility] AST 23 0 - 37 U/L [facility] ALT 10 0 - 40 U/L [facility] GLOBULIN 2.8 1 - 4.8 g/dL [facility] EGFR 65 >59 mL/min/1.7 3m2 [facility] Comment:Estimated glomerular filtration rate calculated using the CKD-EPI refit equation. ANION GAP 18 10 - 20 mmol/L [facility] Blood 06/26/2025 8:06 AM EDT 06/26/2025 8:13 AM EDT Janie Pina MD LAB BLOOD BKR ORDERABL ES Final Result Performing Organization Address City/[facility]/ZIP Co de Phone Number [address] [address] * (ABNORMAL) 25-OH vitamin D (06/26/2025 8:06 AM EDT) 25 OH VIT D (TOTAL) 67(H) 30 - 60 ng/mL [facility] Blood 06/26/2025 8:06 AM EDT 06/26/2025 8:13 AM EDT Janie Pina MD LAB BLOOD BKR ORDERABL ES Final Result [address] [address] * (ABNORMAL) Phosphorus (06/26/2025 8:06 AM EDT) PHOSPHORUS 4.6(H) 2.7 - 4.5 mg/dL [facility] Blood 06/26/2025 8:06 AM EDT 06/26/2025 8:13 AM EDT Janie Pina MD LAB BLOOD BKR ORDERABL ES Final Result Performing Organization Address [facility] Co de Phone Number [address] [address] * Parathyroid hormone (PTH) (06/26/2025 8:06 AM EDT) PARATHYROID HORMONE 24 15 - 65 pg/mL [facility] Blood 06/26/2025 8:06 AM EDT 06/26/2025 8:12 AM EDT Janie Pina MD LAB BLOOD BKR ORDERABL ES Final Result Performing Organization Address [facility] de Phone Number [address] [address] * (ABNORMAL) Lipid panel (08/29/2020 10:16 AM EST) HDL 50 mg/dL [facility] Comment: Interpretation <40 mg/dL: Low HDL cholesterol (major risk factor for CHD) Greater than or equal to 60 mg/dL: High HDL cholesterol ( negative risk factor for CHD) HDL - cholesterol is affected by a number of factors, e.g. smoking, excerise, hormones, sex and age. CHOLESTEROL 213 0 - 240 mg/dL [facility] TRIGLYCERIDES 154 30 - 160 mg/dL [facility] LDL 132(H) 50 - 129 mg/dL [facility] Comment: LDL levels in terms of risk for coronary heart disease: <100 mg/dL: Optimal 100-129 mg/dL: Near or above optimal 130-159 mg/dL: Borderline high 160-189 mg/dL: High >190 mg/dL: Very High CARDIAC RISK RATIO 4.3 3.3 - 4.4 C [facility] Blood 08/29/2020 10:1 6 AM EST 08/29/2020 10:17 AM EST Analy Blanco DO LAB BLOOD BKR ORDERABLES F inal Result Performing Organization Address City/[facility] Co de Phone Number [facility] [address] [place] [address] from Last 3 Months or Most Recently Relevant to Health Maintenance Insurance MEDICARE PART A & B FOR LIFE MEDICARE SUPPLEMENT [employer] PPO MEDICARE REPLACEMENT MEDICARE PART A & B [facility] MEDICARE SUPPLEMENT [facility] Address: [address] [place] [address] [facility] MEDICARE PART A & B FOR LIFE MEDICARE SUPPLEMENT [employer] PPO MEDICARE REPLACEMENT MEDICARE PART A & B FOR LIFE MEDICARE SUPPLEMENT T PPO MEDICARE REPLACEMENT MEDICARE PART A & B [facility] MEDICARE SUPPLEMENT [facility] Address: [address] [place] [phone] A[employer] PPO MEDICARE REPLACEMENT MEDICARE PART A & B [facility] MEDICARE SUPPLEMENT [facility] Address: [address] [phone] [facility] RE[facility] MEDICARE PART A & B FOR LIFE MEDICARE SUPPLEMENT [facility] Address: [address] [address] [place] [address] MEDICARE PART A & B FOR LIFE MEDICARE SUPPLEMENT MEDICARE PART A & B FOR LIFE MEDICARE SUPPLEMENT [employer] DENTAL Advance Directives For more information, please contact: [phone] (9AM - 5PM [facility], Saturday-Saturday) * Full Code (Confirmed) (Latest Code Status on File) Date Activated Date Inactivated Comments 03/17/2020 4:17 PM Question Answer Comments Code Status Confirmed With: Patient Care Teams Field Naturalist Relationship Specialty Start Date End Date Pina Guerra MD [address] [place] [address] [email or web address] PCP - General Family Medicine 03/03/21 Additional Source Comments The information contained in this document represents components of the legal health record. It is not the complete legal health record.[facility]
--- OUTSIDE RECORDS SUMMARY | 2025-08-31 11:44 | XMS_ITS | Encounter Summary ---
Author Organization [facility] Address [address] [place] [address] Care Team Providers Care Weaver Axminster Name Role Phone Pina Guerra Primary Care Provider Tessy Carr PHARMACIST Unavailable Unava ilable Encounter Details Date Type Department Care Team (Late st Contact Info) Description 02/17/2025 Orders Only [facility] [address] [place] [address] Reny Gar MD [address] [facility] [place] [phone] Social History Tobacco Use Types Packs/Day Years [...] Description 01/11/2026 11:00 AM EDT Office Visit [facility] [address] [place] [address] Reny Gar MD [address] [facility] [phone] documented as of this encounter Visit Diagnoses Not on filedocumented in this encounter Care Teams Weaver Axminster Relationship Specialty Start Date End Date Pina Guerra [address] [place] [address] PCP - General Primary Care 07/21/21 Tessy Carr, PHARMACIST [address] [place] [address] Pharmacy 11/05/23 documented as of this encounter
--- OUTSIDE RECORDS SUMMARY | 2025-08-31 11:44 | XMS_ITS | Encounter Summary ---
Author Organization [facility] Address [address] [place] [address] Phone Care Team Providers Care Manager Account Management Name Role Phone Pina Guerra MD Primary Care Provider [phone] Encounter Details Date Type Department Care Team (Latest Contact Info) Description 03/23/2022 Transcribe Orders [facility] Phleb Main [address] [place] [address] Bettie Moulton, THO [address] [place] [address] Primary hyperparathyroidism (Primary Dx) Social [...] high school, GED, job training, learning the Tajik language, technical skills, or developing parenting skills)? [...] Description 09/29/2025 8:20 AM EST Office Visit [facility] [address] [address] Pina Guerra MD 15 [facility] [address] [address] 10/13/2025 1:15 PM EST Office Visit [facility] [address] [place] [address] Carolina Bejarano MD 22 [facility] [address] [place] [address] [email or web address], PT 8 [place] [address] 10/25/2025 12:30 PM EST Office Visit [facility] 8 [place] [address] Carolina Bejarano MD [address] [place] [address] [email or web address], PT 8 [place] [address] 10/29/2025 1:30 PM EST Office Visit [address] [address] Carolina Bejarano MD [address] [place] [address] [email or web address], PT 8 [place] [address] 11/01/2025 1:00 PM EST Office Visit [facility] 8 [place] [address] Carolina Bejarano MD [address] [place] [address] [email or web address] Hugh [email or web address], [address] [address] 11/04/2025 1:45 PM EST Office Visit [facility] 8 [place] [address] Carolina Bejarano MD [address] [place] [address] [email or web address] Hugh [email or web address], [address] [address] 11/08/2025 12:30 PM EST Office Visit [address] [address] Carolina Bejarano MD [address] [place] [address] [email or web address], PT 8 [place] [address] 11/11/2025 1:00 PM EST Office Visit [address] [address] Carolina Bejarano MD [address] [place] [address] [email or web address] Hugh [email or web address], [address] [address] 11/15/2025 1:00 PM EST Office Visit [address] [address] Carolina Bejarano MD [address] [place] [address] [email or web address] [email or web address], LINOLEUM MECHANIC 8 [place] [address] 11/18/2025 12:15 PM EST Office Visit [address] [address] Carolina Bejarano MD [address] [place] [address] [email or web address], PT 8 [place] [address] 12/29/2025 10:00 AM EST Office Visit [facility] [address] [place] [address] Carolina Bejarano MD [address] [place] [address] [place] [address] [email or web address] documented as of this encounter Results * TISSUE TRANSGLUTAMINASE IGA/IGG (03/23/2022 8:15 AM EDT) TTG IGA ANTIBODY <1.2 <4.0 (Negative) U/mL [facility] TTG ANTIBODY IGG <1.2 <6.0 (Negative) U/mL [facility] Blood 03/23/2022 8:15 AM EDT 03/23/2022 8:23 AM EDT us Bettie Moulton MACHINE FINISHER LAB BLOOD BKR ORDERABLES Fi nal Result [facility] [address] [place] [address] documented in this encounter Visit Diagnoses Diagnosis Primary hyperparathyroidism- Primary documented in this encounter Additional Health Concerns Assessment Noted Time PHQ-2 Depression Total Score: 1 08/07/20 21 11:21 AM EDT documented as of this encounter Care Teams Manager Account Management Relationship Specialty Start Date End Date Pina Guerra MD 15 [facility] [address] [place] [address] [email or web address] PCP - General Family Medicine 03/03/21 documented as of this encounter Additional Source Comments The information contained in this document represents components of the legal health record. It is not the complete legal health record.[facility]
--- OUTSIDE RECORDS SUMMARY | 2025-08-31 11:45 | XMS_ITS | Encounter Summary ---
Author Organization [facility] Address [address] [place] [address] Phone Care Team Providers Care Varitypist Name Role Phone Pina Guerra MD Primary Care Provider [phone] Encounter Details Date Type Department Care Team (Late st Contact Info) Description 01/16/2023 Procedure Pass [facility] Scan - [address] [address] Social History Tobacco Use Types Packs/Day Years [...] high school, GED, job training, learning the Bermudian language, technical skills, or developing parenting skills)? [...] Description 09/29/2025 8:20 AM EST Office Visit [facility] [address] [address] Pina Guerra MD [address] [address] 10/13/2025 1:15 PM EST Office Visit [facility] 8 [place] [address] Carolina Bejarano MD [address] [place] [address] [email or web address], PT 8 [place] [address] 10/25/2025 12:30 PM EST Office Visit [facility] 8 [place] [address] Carolina Bejarano MD [address] [place] [address] [email or web address], PT 8 [place] [address] 10/29/2025 1:30 PM EST Office Visit [address] [address] Carolina Bejarano MD [address] [place] [address] [email or web address], PT 8 [place] [address] 11/01/2025 1:00 PM EST Office Visit [address] [address] Carolina Bejarano MD [address] [place] [address] [email or web address] Hugh [email or web address], REMOVABLE PROSTHODONTIST [address] [place] [address] 11/04/2025 1:45 PM EST Office Visit [address] [address] Carolina Bejarano MD [address] [place] [address] [email or web address] [email or web address], REMOVABLE PROSTHODONTIST 8 [place] [address] 11/08/2025 12:30 PM EST Office Visit [address] [address] Carolina Bejarano MD [address] [place] [address] [email or web address], PT 8 [place] [address] 11/11/2025 1:00 PM EST Office Visit [facility] 8 [place] [address] Carolina Bejarano MD [address] [place] [address] [email or web address], REMOVABLE PROSTHODONTIST 8 [place] [address] 11/15/2025 1:00 PM EST Office Visit [facility] 8 [place] [address] Carolina Bejarano MD [address] [place] [address] [email or web address], REMOVABLE PROSTHODONTIST 8 [place] [address] 11/18/2025 12:15 PM EST Office Visit [facility] 8 [place] [address] Carolina Bejarano MD [address] [place] [address] [email or web address], PT 8 [place] [address] 12/29/2025 10:00 AM EST Office Visit [facility] [address] [place] [address] Carolina Bejarano MD [address] [place] [address] [email or web address] documented as of this encounter Visit Diagnoses Not on filedocumented in this encounter Additional Health Concerns Assessment Noted Time PHQ-2 Depression Total Score: 1 08/07/20 21 11:21 AM EDT documented as of this encounter Care Teams Varitypist Relationship Specialty Start Date End Date Pina Guerra MD [address] [place] [address] [email or web address] PCP - General Family Medicine 03/03/21 documented as of this encounter Additional Source Comments The information contained in this document represents components of the legal health record. It is not the complete legal health record.[facility]
--- OUTSIDE RECORDS SUMMARY | 2025-08-31 11:45 | XMS_ITS | Encounter Summary ---
Author Organization [facility] Address [address] [place] [address] Phone Care Team Providers Care Amr Physician Name Role Phone Alix Reyes Unavailable [phone] José Manuel Leon MD Unavailable Cody Colbert MD Unavailable Meenakshi Garcia NP Unavailable Muriel Swenson MD Unavailable [phone] Paula RiveraC Unavailable [phone] Светлана Simpson MD Unavailable [phone] Analy Blanco DO Primary Care Provider [phone] Pina Guerra MD Primary Care Provider [phone] Encounter Details Date Type Department Care Team (Late st Contact Info) Description 11/28/2020 Procedure Pass Echo Lab [address] [place] [address] Social History Tobacco Use Types Packs/Day Years [...] Description 09/29/2025 8:20 AM EST Office Visit [facility] [address] [place] [address] Pina Guerra MD 15 [facility] [address] [place] [address] 10/13/2025 1:15 PM EST Office Visit [facility] 8 [place] [address] Carolina Bejarano MD [address] [place] [address] [email or web address] King, PT 8 [place] [address] 10/25/2025 12:30 PM EST Office Visit [facility] 8 [place] [address] Carolina Bejarano MD [address] [place] [address] [email or web address] King, PT 8 [place] [address] 10/29/2025 1:30 PM EST Office Visit [facility] 8 [place] [address] Carolina Bejarano MD [address] [place] [address] [email or web address] King, PT 8 [place] [address] 11/01/2025 1:00 PM EST Office Visit [facility] 8 [place] [address] Carolina Bejarano MD [address] [place] [address] [email or web address], COMMERCIAL ANNOUNCER 8 [place] [address] 11/04/2025 1:45 PM EST Office Visit [facility] 8 [place] [address] Carolina Bejarano MD [address] [place] [address] [email or web address] Hugh [email or web address], COMMERCIAL ANNOUNCER [address] [place] [address] 11/08/2025 12:30 PM EST Office Visit [facility] 8 [place] [address] Carolina Bejarano MD [address] [place] [address] [email or web address] King, PT 8 [place] [address] 11/11/2025 1:00 PM EST Office Visit [facility] 8 [place] [address] Carolina Bejarano MD [address] [place] [address] [email or web address] Hugh [email or web address], COMMERCIAL ANNOUNCER 8 [place] [address] 11/15/2025 1:00 PM EST Office Visit [facility] 8 [place] [address] Carolina Bejarano MD [address] [place] [address] [email or web address] Hugh Burt, COMMERCIAL ANNOUNCER 8 [place] [address] 11/18/2025 12:15 PM EST Office Visit [facility] 8 [place] [address] Carolina Bejarano MD [address] [place] [address] [email or web address], PT 8 [place] [address] 12/29/2025 10:00 AM EST Office Visit [facility] [address] [place] [address] Carolina Bejarano MD [address] [place] [address] [email or web address] documented as of this encounter Visit Diagnoses Not on filedocumented in this encounter Additional Health Concerns Infection Onset Date Last Indicated Resolved Time CoV-Exposed Comment:Recent close contact documented in the COVID-19 Amb Triage Form 10/08/2021 10/11/2021 10/23/2021 1:[address] Assessment Noted Time PHQ-2 Depression Total Score: 2 08/14/20 20 9:49 AM EDT documented as of this encounter Care Teams Amr Physician Relationship Specialty Start Date End Date Analy Blanco DO [address] [place] [address] [email or web address] PCP - General 10/31/18 03/02/21 Pina Guerra MD 15 [facility] [address] [place] [address] [email or web address] PCP - General Family Medicine 03/03/21 Alix Reyes PA [facility] [place] [address] Historical LMR Provider 08/17/17 2 José Manuel Leon MD [address] [place] [address] [email or web address] Historical LMR Provider 08/17/17 11/04/21 Cody Colbert MD [address] [place] [address] Historical LMR Provider 08/17/17 Meenakshi Garcia NP [address] [place] [address] [email or web address] Historical LMR Provider 08/17/17 2 Muriel Swenson MD [address] [place] [address], 2nd [place] [address] [email or web address] Historical LMR Provider 08/17/17 Paula Rivera PA-C [address] [place] [address] Orthopedics Sports [facility], [place] [address] [email or web address] Historical LMR Provider 08/17/17 11/04/21 Светлана Simpson MD [address] [place] [address] Orthopedics & Sports [facility], [place] [address] [email or web address] Historical LMR Provider 08/17/17 documented as of this encounter Additional Source Comments The information contained in this document represents components of the legal health record. It is not the complete legal health record.[facility]
--- OUTSIDE RECORDS SUMMARY | 2025-08-31 11:45 | XMS_ITS | Encounter Summary ---
Author Organization [facility] Address [address] [place] [address] Phone Care Team Providers Care Applications Programmer Analyst Name Role Phone Alix Reyes Unavailable [phone] José Manuel Leon MD Unavailable Cody Colbert MD Unavailable [phone] Meenakshi Garcia NP Unavailable Muriel Swenson MD Unavailable [phone] Paula RiveraC Unavailable [phone] Светлана Simpson MD Unavailable Analy Blanco DO Primary Care Provider [phone] Pina Guerra MD Primary Care Provider Reason for Referral * MRI/CAT Scan - Closed Specialty Diagnoses / Procedures Referred By Laurie t Referred To Contact Diagnoses Longstanding persistent atrial fibrillation Procedures MCT (Mobile Cardiac Telemetry) David Rivera DO Phone: tel: fax: [email or web address] Referral ID Status Reason Start Date Expiration Date Visits Re quested Visits Authorized [id number] Closed 08/08/2020 08/08/2021 1 1 Encounter Details Date Type Department Care Team (Latest Contact Info) Description 08/08/2020 Ancillary Orders [facility] 22 [facility] 3rd [facility], [address] [place] [address] David Rivera DO [address] [address] [email or web address] Longstanding persistent atrial fibrillation Social History Tobacco Use Types Packs/Day Years [...] Description 09/29/2025 8:20 AM EST Office Visit [facility] 15 [facility] 201 [place] [address] Pina Guerra MD 15 [facility] [address] [place] [address] [email or web address] 10/13/2025 1:15 PM EST Office Visit [facility] 8 [place] [address] Carolina Bejarano MD [address] [address] [email or web address] King, PT 8 [place] [address] 10/25/2025 12:30 PM EST Office Visit [facility] 8 [place] [address] Carolina Bejarano MD [address] [place] [address] [email or web address] King, PT 8 [place] [address] 10/29/2025 1:30 PM EST Office Visit [facility] 8 [place] [address] Carolina Bejarano MD [address] [place] [address] [email or web address] King, PT 8 [place] [address] 11/01/2025 1:00 PM EST Office Visit [facility] 8 [place] [address] Carolina Bejarano MD [address] [place] [address] [email or web address] Hugh Burt, [address] [address] 11/04/2025 1:45 PM EST Office Visit [facility] 8 [place] [address] Carolina Bejarano MD [address] [place] [address] [email or web address] Hugh Burt, [address] [address] 11/08/2025 12:30 PM EST Office Visit [facility] 8 [place] [address] Carolina Bejarano MD [address] [place] [address] [email or web address] King, PT 8 [place] [address] 11/11/2025 1:00 PM EST Office Visit [facility] 8 [place] [address] Carolina Bejarano MD [address] [place] [address] [email or web address] Hugh Burt, SECURITY AMBASSADOR 8 [place] [address] 11/15/2025 1:00 PM EST Office Visit [address] [address] Carolina Bejarano MD [address] [place] [address] [email or web address] Hugh Burt, SECURITY AMBASSADOR 8 [place] [address] 11/18/2025 12:15 PM EST Office Visit [address] [address] Carolina Bejarano MD [address] [place] [address] [email or web address] King, PT 8 [place] [address] 12/29/2025 10:00 AM EST Office Visit [facility] [address] [place] [address] Carolina Bejarano MD [address] [place] [address] [email or web address] Scheduled Orders Name Type Priority Associated Diagnoses Orde r Schedule MCT (Mobile Cardiac Telemetry) Cardiac Monitors Routine Longstanding persistent atrial fibrillation Expected: 08/04/2020, Expires: 01/02/2021 documented as of this encounter Visit Diagnoses Diagnosis Longstanding persistent atrial fibrillation documented in this encounter Additional Health Concerns Infection Onset Date Last Indicated Resolved Time CoV-Exposed Comment:Recent close contact documented in the COVID-19 Amb Triage Form 10/08/2021 10/11/2021 10/23/2021 1:[address] Assessment Noted Time PHQ-2 Depression Total Score: 0 06/28/20 4:42 PM EDT documented as of this encounter Care Teams Applications Programmer Analyst Relationship Specialty Start Date End Date Analy Blanco DO [address] [place] [address] [email or web address] PCP - General 10/31/18 03/02/21 Pina Guerra MD [address] [place] [address] PCP - General Family Medicine 03/03/21 Alix Reyes PA [facility] [place] [address] Historical LMR Provider 08/17/17 2 José Manuel Leon MD [address] [place] [address] [email or web address] Historical LMR Provider 08/17/17 11/04/21 Cody Colbert MD [address] [place] [address] Historical LMR Provider 08/17/17 Meenakshi Garcia, CREEL OPERATOR 21 [place] [address] [email or web address] Historical LMR Provider 08/17/17 2 Muriel Swenson MD 15 [facility], 2nd [place] [address] Historical LMR Provider 08/17/17 Paula Rivera PA-C [address] [place] [address] Orthopedics & Sports Medicine, [place] [address] Historical LMR Provider 08/17/17 11/04/21 Светлана Simpson MD [address] [place] [address] Orthopedics & Sports Medicine, [place] [address] [email or web address] Historical LMR Provider 08/17/17 documented as of this encounter Additional Source Comments The information contained in this document represents components of the legal health record. It is not the complete legal health record.[facility]
--- OUTSIDE RECORDS SUMMARY | 2025-08-31 11:45 | XMS_ITS | Encounter Summary ---
Author Organization [facility] Address [address] [place] [address] Phone Care Team Providers Care Nurse Receptionist Name Role Phone Phi Caballero MD Unavailable [phone] Phi Caballero MD Unavailable [phone] Alix Reyes Unavailable [phone] Katie Gaming MD Unavailable [phone] José Manuel Leon MD Unavailable Cody Colbert MD Unavailable Federico Coburn SHINGLES ROOFER Unavailable [phone] Meenakshi Garcia BUSINESS INSIGHT AND ANALYTICS MANAGER Unavailable [phone] Muriel Swenson MD Unavailable [phone] Paula Rivera PA-C Unavailable [phone] George Peterson MD Unavailable Светлана Simpson MD Unavailable Phi Caballero MD Primary Care Provide r + Nick Eagle MD Primary Care Provider Phi Caballero MD Primary Care Provide r Analy Blanco DO Primary Care Provider Pina Guerra MD Primary Care Provider [phone] Encounter Details Date Type Department Care Team (Latest Contact Info) Description 09/02/2017 Ancillary Orders [facility] 22 [facility] 3rd Floor, [address] [place] [address] Michele Lemon MD 22 [facility] 301 [place] [address] Atrial fibrillation, unspecified type Social History Tobacco Use Types Packs/Day Years [...] Description 09/29/2025 8:20 AM EST Office Visit [facility] 15 [facility] [address] [place] [address] Pina Guerra MD 15 [facility] [address] [place] [address] 10/13/2025 1:15 PM EST Office Visit [facility] 8 [place] [address] Carolina Bejarano MD [address] [address] [email or web address] King, PT 8 [place] [address] 10/25/2025 12:30 PM EST Office Visit [facility] 8 [place] [address] Carolina Bejarano MD [address] [address] [email or web address], PT 8 [place] [address] 10/29/2025 1:30 PM EST Office Visit [facility] 8 [place] [address] Carolina Bejarano MD [address] [place] [address] [email or web address] King, PT 8 [place] [address] 11/01/2025 1:00 PM EST Office Visit [address] [address] Carolina Bejarano MD [address] [place] [address] [email or web address] Hugh Burt, MACHINE MARKER 8 [place] [address] 11/04/2025 1:45 PM EST Office Visit [address] [address] Carolina Bejarano MD [address] [place] [address] [email or web address] Hugh Burt, MACHINE MARKER 8 [place] [address] 11/08/2025 12:30 PM EST Office Visit [address] [address] Carolina Bejarano MD [address] [place] [address] [email or web address] King, PT 8 [place] [address] 11/11/2025 1:00 PM EST Office Visit [facility] 8 [place] [address] Carolina Bejarano MD [address] [place] [address] [email or web address], MACHINE MARKER 8 [place] [address] 11/15/2025 1:00 PM EST Office Visit [facility] 8 [place] [address] Carolina Bejarano MD [address] [place] [address] [email or web address] Hugh Burt, MACHINE MARKER 8 [place] [address] 11/18/2025 12:15 PM EST Office Visit [facility] 8 [place] [address] Carolina Bejarano MD [address] [place] [address] [email or web address] King, PT 8 [place] [address] 12/29/2025 10:00 AM EST Office Visit [facility] 22 [place] [address] Carolina Bejarano MD [address] [place] [address] [email or web address] documented as of this encounter Results * TTE COMPREHENSIVE (09/02/2017 9:30 AM EST) Body Surface Area 1.87 m2 Ejection Fraction 65 50 - 75 % Anatomical Region Laterality Modality Heart Ultrasound Narrative 09/02/2017 1:51 PM EST Atrial Fibrillation Left ventricular cavity size is normal. There is discrete upper septal thickening. Mild - Moderate increased wall thickening. Left ventricular systolic function is normal. The estimated ejection fraction is 65% The left atrium is severely dilated There is trace mitral regurgitation detected by spectral and color Doppler. Multiple aortic leaflets are thickened but there is no stenosis. There is no evidence of aortic regurgitation Compared to a prior report from 01/06/2003, Atrial fibrillation has replaced sinus rhythm Left Ventricle Left ventricular cavity size is normal. There is discrete upper septal thickening. Mild - Moderate increased wall thickening. Left ventricular systolic function is normal. The estimated ejection fraction is 65% (Normal 50-75%). The left ventricular ejection fraction was measured by visual estimate. Left ventricular diastolic function could not be adequately assessed. Right Ventricle The right ventricular size is normal. The right ventricular systolic function is normal. Left Atrium The left atrium is severely dilated. Right Atrium The right atrium is mildly dilated. The IVC is normal in size (2.1cm or less). The IVC demonstrates normal collapse with inspiration which is consistent with normal RA pressure. Mitral Valve The mitral valve appears abnormal. Mildly calcified leaflets. There is trace mitral regurgitation detected by spectral and color Doppler. Tricuspid Valve The tricuspid valve appears normal. There is evidence of mild tricuspid regurgitation by color and spectral Doppler. Aortic Valve The aortic valve was not well visualized. Multiple aortic leaflets are thickened but there is no stenosis. There is no evidence of aortic regurgitation by color and spectral Doppler. Pulmonic Valve Pulmonary valve was not well visualized. Pericardium There is evidence of epicardial fat. Interatrial Septum The interatrial septum appears normal. General Findings The study was technically difficult (4). Limited parasternal window due to body habitus. Rhythm: Atrial Fibrillation Comparison Findings Compared to a prior report from 01/06/2003, Atrial fibrillation has replaced sinus rhythm us Michele Lemon MD CV ECHO ORDERABLES Final Result documented in this encounter Visit Diagnoses Diagnosis Atrial fibrillation, unspecified type Atrial fibrillation, unspecified type documented in this encounter Additional Health Concerns Infection Onset Date Last Indicated Resolved Time CoV-Risk 03/17/2020 03/17/2020 03/17/2020 5:12 PM EDT CoV-Exposed Comment:Recent close contact documented in the COVID-19 Amb Triage Form 10/08/2021 10/11/2021 10/23/2021 1:[address] documented as of this encounter Care Teams Nurse Receptionist Relationship Specialty Start Date End Date Phi Caballero MD [address] [place] [address] Orthopedics Sports [facility], [place] [address] [email or web address] PCP - General Internal Medicine 09/02/17 12/29/17 Nick Eagle MD [address] [place] [address] PCP - General Internal Medicine 12/30/17 12/30/17 Phi Caballero MD [address] [place] [address] [email or web address] PCP - General Internal Medicine 12/31/17 10/30/18 Analy Blanco DO [address] [place] [address] [email or web address] PCP - General 10/31/18 03/02/21 Pina Guerra MD 15 [facility] [address] [place] [address] [email or web address] PCP - General Family Medicine 03/03/21 Phi Caballero MD 22 [facility] Floor 1 [place] [address] [email or web address] Insurance Assigned Provider 08/03/17 01/25/18 Phi Caballero MD 22 [facility] Floor 1 [place] [address] [email or web address] Historical LMR Provider 08/17/17 03/17/19 Alix Reyes PA [facility] [place] [address] Historical LMR Provider 08/17/17 2 Katie Gaming MD [address] [place] [address], [address] [place] [address] [email or web address] Historical LMR Provider 08/17/17 José Manuel Leon MD [address] [place] [address] [email or web address] Historical LMR Provider 08/17/17 11/04/21 Cody Colbert MD [address] [place] [address] Historical LMR Provider 08/17/17 Federico Coburn, SHINGLES ROOFER [address] [place] [address], [address] [place] [address] [email or web address] Historical LMR Provider 08/17/17 03/17/19 Meenakshi Garcia BUSINESS INSIGHT AND ANALYTICS MANAGER [address] [place] [address] [email or web address] Historical LMR Provider 08/17/17 2 Muriel Swenson MD 15 [facility], 2nd [place] [address] Historical LMR Provider 08/17/17 Paula Rivera PA-C 4 [facility] Medicine, [facility] [place] [address] Historical LMR Provider 08/17/17 11/04/21 George Peterson MD 22 [facility], [address] [place] [address] Historical LMR Provider 08/17/17 Светлана Simpson MD 4 [facility], [facility] [place] [address] Historical LMR Provider 08/17/17 documented as of this encounter Additional Source Comments The information contained in this document represents components of the legal health record. It is not the complete legal health record.[facility]
--- OUTSIDE RECORDS SUMMARY | 2025-08-31 11:45 | XMS_ITS | Encounter Summary ---
Author Organization [facility] Address [address] [place] [address] Phone Care Team Providers Care Assistant Manager Trainee Name Role Phone Alix Reyes Unavailable [phone] José Manuel Leon MD Unavailable Cody Colbert MD Unavailable Meenakshi Garcia NP Unavailable Muriel Swenson MD Unavailable [phone] Paula RiveraC Unavailable Светлана Simpson MD Unavailable Analy Blanco DO Primary Care Provider [phone] Pina Guerra MD Primary Care Provider Encounter Details Date Type Department Care Team (Late st Contact Info) Description 11/21/2020 Transcribe Orders [facility] [address] [place] [address] Reny Gar MD [address] [place] [address] [address] Encounter for long-term (current) use of other medications (Primary Dx) Social History Tobacco Use Types [...] Description 09/29/2025 8:20 AM EST Office Visit [facility] [address] [address] Pina Guerra MD [address] [address] 10/13/2025 1:15 PM EST Office Visit [facility] [address] [place] [address] Carolina Bejarano MD [address] [email or web address] [email or web address] Destiny King, PT 8 [place] [address] 10/25/2025 12:30 PM EST Office Visit [facility] [address] [place] [address] Carolina Bejarano MD [address] [address] [email or web address] Destiny King, PT 8 [place] [address] 10/29/2025 1:30 PM EST Office Visit [facility] [address] [place] [address] Carolina Bejarano MD [address] [place] [address] [email or web address] Destiny King, PT 8 [place] [address] 11/01/2025 1:00 PM EST Office Visit [address] [address] Carolina Bejarano MD [address] [place] [address] [email or web address] Hugh Burt, [address] [address] 11/04/2025 1:45 PM EST Office Visit [address] [place] [address] Carolina Bejarano MD [address] [place] [address] [email or web address] Hugh Burt, [employer] [address] [place] [address] 11/08/2025 12:30 PM EST Office Visit [address] [address] Carolina Bejarano MD [address] [place] [address] [email or web address] Destiny King, PT 8 [place] [address] 11/11/2025 1:00 PM EST Office Visit [address] [address] Carolina Bejarano MD [address] [place] [address] [email or web address] Hugh Burt, [employer] WORKER 8 [place] [address] 11/15/2025 1:00 PM EST Office Visit [facility] 8 [place] [address] Carolina Bejarano MD [address] [place] [address] [email or web address] Hugh Burt, [employer] WORKER 8 [place] [address] 11/18/2025 12:15 PM EST Office Visit [address] [address] Carolina Bejarano MD [address] [place] [address] [email or web address] Destiny King, PT 8 [place] [address] 12/29/2025 10:00 AM EST Office Visit [facility] [address] [place] [address] Carolina Bejarano MD [address] [place] [address] [email or web address] documented as of this encounter Results * Albumin (10/06/2021 11:33 AM EST) ALBUMIN 3.9 3.9 - 4.8 g/dL [facility] Blood 10/06/2021 11:3 3 AM EST 10/06/2021 11:40 AM EST Reny Gar MD LAB BLOOD BKR ORDE RABLES Final Result Performing Organization Address City/[facility]/ZIP Co de Phone Number [address] [address] * Aspartate aminotransferase (AST) (10/06/2021 11:33 AM EST) AST 18 0 - 37 U/L [facility] Blood 10/06/2021 11:3 3 AM EST 10/06/2021 11:40 AM EST us Reny Gar MD LAB BLOOD BKR ORDE RABBLAIRE Final Result Performing Organization Address [facility] Co de Phone Number [address] [address] * Alanine aminotransferase (ALT) (10/06/2021 11:33 AM EST) ALT 9 0 - 40 U/L [facility] Blood 10/06/2021 11:3 3 AM EST 10/06/2021 11:40 AM EST us Reny Gar MD LAB BLOOD BKR ORDE RABBLAIRE Final Result Performing Organization Address [facility] Co de Phone Number [address] [address] * (ABNORMAL) BUN (10/06/2021 11:33 AM EST) BUN 26(H) 6 - 19 mg/dL [facility] Blood 10/06/2021 11:3 3 AM EST 10/06/2021 11:40 AM EST us Reny Gar MD LAB BLOOD BKR ORDE RABLES Final Result Performing Organization Address City/[facility]/ZIP Co de Phone Number [address] [address] * Creatinine/eGFR (10/06/2021 11:33 AM EST) CREATININE 0.80 0.5 - 1.5 mg/dL [facility] EGFR 76 >59 mL/min/1.7 3m2 [facility] Comment:Estimated glomerular filtration rate calculated using the CKD-EPI refit equation. Blood 10/06/2021 11:3 3 AM EST 10/06/2021 11:40 AM EST us Reny Gar MD LAB BLOOD BKR NOAHE HERMANBLAIRE Final Result Performing Organization Address City/[facility]/ZIP Co de Phone Number [address] [address] * C-Reactive Protein (10/06/2021 11:33 AM EST) C REACTIVE PROTEIN <3.0 0.0 - 4.0 mg/L [facility] Blood 10/06/2021 11:3 3 AM EST 10/06/2021 11:40 AM EST us Reny Gar MD LAB BLOOD BKR NOAHE HERMANBLAIRE Final Result Performing Organization Address City/[facility]/ZIP Co de Phone Number [address] [address] * Sedimentation rate (ESR) (10/06/2021 11:33 AM EST) ESR 18 0 - 30 mm/h [facility] Blood 10/06/2021 11:3 3 AM EST 10/06/2021 11:40 AM EST us Reny Gar MD LAB BLOOD BKR ORDE RABBLAIRE Final Result Performing Organization Address City/[facility]/ZIP Co de Phone Number [address] [address] * (ABNORMAL) CBC and differential (10/06/2021 11:33 AM EST) WBC 8.90 4.00 - 11.00 K/uL [facility] RBC 4.16 3.72 - 5.30 M/uL [facility] HGB 12.4 11.4 - 15.9 g/dL [facility] HCT 38.2 34.2 - 46.8 % [facility] PLT 295 140 - 430 K/uL [facility] MCV 91.8 78.0 - 97.0 fL [facility] MCH 29.8 25.0 - 33.0 pg [facility] MCHC 32.5 32.0 - 36.0 g/dL [facility] RDW 13.3 11.0 - 16.0 % [facility] MPV 10.6 8.4 - 12.8 fl [facility] NRBC 0.00 0 /100 WBCs [facility] ABSOLUTE NRBC 0.00 0 K/uL [facility] DIFF METHOD Auto [facility] NEUTS 68.3 43.0 - 75.0 % [facility] LYMPHS 17.6(L) 18.2 - 47.4 % [facility] MONOS 7.3 4.00 - 11.00 % [facility] EOS 5.8 0.0 - 8.0 % [facility] BASOS 0.9 0.0 - 2.0 % [facility] Granulocytes, immature (%) 0.1 0.0 - 0.9 % [facility] ABSOLUTE NEUTS 6.07 1.80 - 7.70 K/uL [facility] ABSOLUTE LYMPHS 1.57 1.00 - 3.10 K/uL [facility] ABSOLUTE MONOS 0.65 0.20 - 0.80 K/uL [facility] ABSOLUTE EOS 0.52 0.00 - 0.80 K/uL [facility] ABSOLUTE BASOS 0.08 0.00 - 0.09 K/uL [facility] Granulocytes, immature 0.01 0.00 - 0.05 K/uL [facility] Blood 10/06/2021 11:3 3 AM EST 10/06/2021 11:40 AM EST us Reny Gar MD LAB BLOOD BKR XIAO MARIE Final Result [address] [address] * (ABNORMAL) Albumin (07/17/2021 10:55 AM EDT) ALBUMIN 3.6(L) 3.9 - 4.8 g/dL [facility] Blood 07/17/2021 10:5 5 AM EDT 07/17/2021 11:02 AM EDT us Reny Gar MD LAB BLOOD BKR ORDE RABBLAIRE Final Result Performing Organization Address [facility]/ZIP Co de Phone Number [address] [address] * Aspartate aminotransferase (AST) (07/17/2021 10:55 AM EDT) AST 24 0 - 37 U/L [facility] Blood 07/17/2021 10:5 5 AM EDT 07/17/2021 11:02 AM EDT us Reny Gar MD LAB BLOOD BKR ORDE RABBLAIRE Final Result Performing Organization Address [facility]/ZIP Co de Phone Number [address] [address] * Alanine aminotransferase (ALT) (07/17/2021 10:55 AM EDT) ALT 11 0 - 40 U/L [facility] Blood 07/17/2021 10:5 5 AM EDT 07/17/2021 11:02 AM EDT us Reny Gar MD LAB BLOOD BKR ORDE RABBLAIRE Final Result Performing Organization Address [facility]/ZIP Co de Phone Number [address] [address] * (ABNORMAL) BUN (07/17/2021 10:55 AM EDT) BUN 30(H) 6 - 19 mg/dL [facility] Blood 07/17/2021 10:5 5 AM EDT 07/17/2021 11:02 AM EDT us Reny Gar MD LAB BLOOD BKR XIAO FRANK Final Result [address] [address] * Creatinine/eGFR (07/17/2021 10:55 AM EDT) CREATININE 0.90 0.5 - 1.5 mg/dL [facility] EGFR 62 >59 mL/min/1.7 3m2 [facility] Comment:Estimated glomerular filtration rate calculated using the CKD-EPI equation. Blood 07/17/2021 10:5 5 AM EDT 07/17/2021 11:02 AM EDT us Reny Gar MD LAB BLOOD TANNERR NOAHCelestino SUTTONBLAIRE Final Result [address] [address] * (ABNORMAL) C-Reactive Protein (07/17/2021 10:55 AM EDT) C REACTIVE PROTEIN 9.7(H) 0.0 - 4.0 mg/L [facility] Blood 07/17/2021 10:5 5 AM EDT 07/17/2021 11:02 AM EDT us Reny Gar MD LAB BLOOD BKR XIAO SUTTONBLAIRE Final Result [address] [address] * Sedimentation rate (ESR) (07/17/2021 10:55 AM EDT) ESR 12 0 - 30 mm/h [facility] Blood 07/17/2021 10:5 5 AM EDT 07/17/2021 11:02 AM EDT Reny Gar MD LAB BLOOD BKR XIAO MARIE Final Result [facility] [address] [place] [address] * (ABNORMAL) CBC and differential (07/17/2021 10:55 AM EDT) WBC 10.40 4.00 - 11.00 K/uL [facility] RBC 3.91 3.72 - 5.30 M/uL [facility] HGB 11.8 11.4 - 15.9 g/dL [facility] HCT 37.3 34.2 - 46.8 % [facility] PLT 258 140 - 430 K/uL [facility] MCV 95.4 78.0 - 97.0 fL [facility] MCH 30.2 25.0 - 33.0 pg [facility] MCHC 31.6(L) 32.0 - 36.0 g/dL [facility] RDW 14.7 11.0 - 16.0 % [facility] MPV 11.6 8.4 - 12.8 fl [facility] NRBC 0.00 0 /100 WBCs [facility] ABSOLUTE NRBC 0.00 0 K/uL [facility] DIFF METHOD Auto [facility] NEUTS 71.3 43.0 - 75.0 % [facility] LYMPHS 15.4(L) 18.2 - 47.4 % [facility] MONOS 6.8 4.00 - 11.00 % [facility] EOS 5.4 0.0 - 8.0 % [facility] BASOS 0.8 0.0 - 2.0 % [facility] Granulocytes, immature (%) 0.3 0.0 - 0.9 % [facility] ABSOLUTE NEUTS 7.42 1.80 - 7.70 K/uL [facility] ABSOLUTE LYMPHS 1.60 1.00 - 3.10 K/uL [facility] ABSOLUTE MONOS 0.71 0.20 - 0.80 K/uL [facility] ABSOLUTE EOS 0.56 0.00 - 0.80 K/uL [facility] ABSOLUTE BASOS 0.08 0.00 - 0.09 K/uL [facility] Granulocytes, immature 0.03 0.00 - 0.05 K/uL [facility] Blood 07/17/2021 10:5 5 AM EDT 07/17/2021 11:02 AM EDT us Reny Gar MD LAB BLOOD BKR ORDE HERMANBLAIRE Final Result Performing Organization Address [facility]/ZIP Co de Phone Number [address] [address] * (ABNORMAL) Albumin (04/19/2021 12:57 PM EDT) ALBUMIN 3.8(L) 3.9 - 4.8 g/dL [facility] Blood 04/19/2021 12:5 7 PM EDT 04/19/2021 4:17 PM EDT us Reny Gar MD LAB BLOOD BKR ORDE FRANK Final Result Performing Organization Address [facility]/ZIP Co de Phone Number [address] [address] * Aspartate aminotransferase (AST) (04/19/2021 12:57 PM EDT) AST 19 0 - 37 U/L [facility] Blood 04/19/2021 12:5 7 PM EDT 04/19/2021 4:17 PM EDT us Reny Gar MD LAB BLOOD BKR ORDE FRANK Final Result Performing Organization Address [facility]/ZIP Co de Phone Number [address] [address] * Alanine aminotransferase (ALT) (04/19/2021 12:57 PM EDT) ALT 12 0 - 40 U/L [facility] Blood 04/19/2021 12:5 7 PM EDT 04/19/2021 4:17 PM EDT us Reny Gar MD LAB BLOOD BKR ORDE RABBLAIRE Final Result [address] [address] * (ABNORMAL) BUN (04/19/2021 12:57 PM EDT) BUN 26(H) 6 - 19 mg/dL [facility] Blood 04/19/2021 12:5 7 PM EDT 04/19/2021 4:17 PM EDT us Reny Gar MD LAB BLOOD BKR ORDE RABBLAIRE Final Result Performing Organization Address [facility]/ZIP Co de Phone Number [address] [address] * Creatinine/eGFR (04/19/2021 12:57 PM EDT) CREATININE 0.80 0.5 - 1.5 mg/dL [facility] EGFR 72 >59 mL/min/1.7 3m2 [facility] Comment:Estimated glomerular filtration rate calculated using the CKD-EPI equation. Blood 04/19/2021 12:5 7 PM EDT 04/19/2021 4:17 PM EDT us Reny Gar MD LAB BLOOD BKR ORDE RABBLAIRE Final Result Performing Organization Address City/[facility]/ZIP Co de Phone Number [address] [address] * C-Reactive Protein (04/19/2021 12:57 PM EDT) Pathologist [facility] C REACTIVE PROTEIN <3.0 0.0 - 4.0 mg/L [facility] Blood 04/19/2021 12:5 7 PM EDT 04/19/2021 4:17 PM EDT Reny Gar MD LAB BLOOD BKR ORDCelestino MARIE Final Result [address] [address] * Sedimentation rate (ESR) (04/19/2021 12:57 PM EDT) [facility] ESR 13 0 - 30 mm/h [facility] Blood 04/19/2021 12:5 7 PM EDT 04/19/2021 4:17 PM EDT Reny Gar MD LAB BLOOD BKR NOAHE FRANK Final Result [address] [address] * (ABNORMAL) CBC and differential (04/19/2021 12:57 PM EDT) [facility] WBC 10.05 4.00 - 11.00 K/uL [facility] RBC 4.25 3.72 - 5.30 M/uL [facility] HGB 12.8 11.4 - 15.9 g/dL [facility] HCT 39.1 34.2 - 46.8 % [facility] PLT 255 140 - 430 K/uL [facility] MCV 92.0 78.0 - 97.0 fL [facility] MCH 30.1 25.0 - 33.0 pg [facility] MCHC 32.7 32.0 - 36.0 g/dL [facility] RDW 15.3 11.0 - 16.0 % [facility] MPV 10.6 8.4 - 12.8 fl [facility] NRBC 0.00 0 /100 WBCs [facility] ABSOLUTE NRBC 0.00 0 K/uL [facility] DIFF METHOD Auto [facility] NEUTS 72.9 43.0 - 75.0 % [facility] LYMPHS 15.8(L) 18.2 - 47.4 % [facility] MONOS 4.6 4.00 - 11.00 % [facility] EOS 5.8 0.0 - 8.0 % [facility] BASOS 0.5 0.0 - 2.0 % [facility] Granulocytes, immature (%) 0.4 0.0 - 0.9 % [facility] ABSOLUTE NEUTS 7.33 1.80 - 7.70 K/uL [facility] ABSOLUTE LYMPHS 1.59 1.00 - 3.10 K/uL [facility] ABSOLUTE MONOS 0.46 0.20 - 0.80 K/uL [facility] ABSOLUTE EOS 0.58 0.00 - 0.80 K/uL [facility] ABSOLUTE BASOS 0.05 0.00 - 0.09 K/uL [facility] Granulocytes, immature 0.04 0.00 - 0.05 K/uL [facility] Blood 04/19/2021 12:5 7 PM EDT 04/19/2021 4:17 PM EDT us Reny Gar MD LAB BLOOD TANNERR XIAO MARIE Final Result [address] [address] * (ABNORMAL) Albumin (03/20/2021 9:19 AM EDT) ALBUMIN 3.3(L) 3.9 - 4.8 g/dL [facility] Blood 03/20/2021 9:19 AM EDT 03/20/2021 9:38 AM EDT Reny Gar MD LAB BLOOD BKR XIAO MARIE Final Result [address] [address] * Aspartate aminotransferase (AST) (03/20/2021 9:19 AM EDT) AST 18 0 - 37 U/L [facility] Blood 03/20/2021 9:19 AM EDT 03/20/2021 9:38 AM EDT us Reny Gar MD LAB BLOOD BKR ORDE RABBLAIRE Final Result Performing Organization Address City/[facility]/ZIP Co de Phone Number [address] [address] * Alanine aminotransferase (ALT) (03/20/2021 9:19 AM EDT) ALT 9 0 - 40 U/L [facility] Blood 03/20/2021 9:19 AM EDT 03/20/2021 9:38 AM EDT us Reny Gar MD LAB BLOOD BKR ORDE RABBLAIRE Final Result Performing Organization Address [facility]/ZIP Co de Phone Number [address] [address] * (ABNORMAL) BUN (03/20/2021 9:19 AM EDT) BUN 34(H) 6 - 19 mg/dL [facility] Blood 03/20/2021 9:19 AM EDT 03/20/2021 9:38 AM EDT us Reny Gar MD LAB BLOOD BKR ORDE RABLES Final Result Performing Organization Address [facility]/ZIP Co de Phone Number [address] [address] * (ABNORMAL) Creatinine/eGFR (03/20/2021 9:19 AM EDT) CREATININE 1.10 0.5 - 1.5 mg/dL [facility] EGFR 49(L) >59 mL/min/1.7 3m2 [facility] Comment:Estimated glomerular filtration rate calculated using the CKD-EPI equation. Blood 03/20/2021 9:19 AM EDT 03/20/2021 9:38 AM EDT Reny Gar MD LAB BLOOD BKR XIAO SUTTONBLAIRE Final Result [address] [address] * (ABNORMAL) C-Reactive Protein (03/20/2021 9:19 AM EDT) Pathologist [facility] C REACTIVE PROTEIN 37.9(H) 0.0 - 4.0 mg/L [facility] Blood 03/20/2021 9:19 AM EDT 03/20/2021 9:38 AM EDT Reny Gar MD LAB BLOOD TANNERR XIAO FRANK Final Result Performing Organization Address [facility]/ZIP Co de Phone Number [address] [address] * Sedimentation rate (ESR) (03/20/2021 9:19 AM EDT) ESR 23 0 - 30 mm/h [facility] Blood 03/20/2021 9:19 AM EDT 03/20/2021 9:38 AM EDT Reny Gar MD LAB BLOOD BKR XIAO SUTTONBLAIRE Final Result Performing Organization Address City/[facility]/ZIP Co de Phone Number [address] [address] * (ABNORMAL) CBC and differential (03/20/2021 9:19 AM EDT) WBC 9.51 4.00 - 11.00 K/uL [facility] RBC 3.86 3.72 - 5.30 M/uL [facility] HGB 11.5 11.4 - 15.9 g/dL [facility] HCT 35.6 34.2 - 46.8 % [facility] PLT 251 140 - 430 K/uL [facility] MCV 92.2 78.0 - 97.0 fL [facility] MCH 29.8 25.0 - 33.0 pg [facility] MCHC 32.3 32.0 - 36.0 g/dL [facility] RDW 14.7 11.0 - 16.0 % [facility] MPV 11.5 8.4 - 12.8 fl [facility] NRBC 0.00 0 /100 WBCs [facility] ABSOLUTE NRBC 0.00 0 K/uL [facility] DIFF METHOD Auto [facility] NEUTS 62.7 43.0 - 75.0 % [facility] LYMPHS 18.4 18.2 - 47.4 % [facility] MONOS 10.5 4.00 - 11.00 % [facility] EOS 7.7 0.0 - 8.0 % [facility] BASOS 0.5 0.0 - 2.0 % [facility] Granulocytes, immature (%) 0.2 0.0 - 0.9 % [facility] ABSOLUTE NEUTS 5.96 1.80 - 7.70 K/uL [facility] ABSOLUTE LYMPHS 1.75 1.00 - 3.10 K/uL [facility] ABSOLUTE MONOS 1.00(H) 0.20 - 0.80 K/uL [facility] ABSOLUTE EOS 0.73 0.00 - 0.80 K/uL [facility] ABSOLUTE BASOS 0.05 0.00 - 0.09 K/uL [facility] Granulocytes, immature 0.02 0.00 - 0.05 K/uL [facility] Blood 03/20/2021 9:19 AM EDT 03/20/2021 9:38 AM EDT Reny Gar MD LAB BLOOD BKR XIAO MARIE Final Result [address] [address] * (ABNORMAL) Albumin (02/14/2021 8:24 AM EDT) ALBUMIN 3.6(L) 3.9 - 4.8 g/dL [facility] Blood 02/14/2021 8:24 AM EDT 02/14/2021 8:29 AM EDT us Reny Gar MD LAB BLOOD BKR ORDE RABBLAIRE Final Result Performing Organization Address [facility] Co de Phone Number [address] [address] * Aspartate aminotransferase (AST) (02/14/2021 8:24 AM EDT) AST 25 0 - 37 U/L [facility] Blood 02/14/2021 8:24 AM EDT 02/14/2021 8:29 AM EDT us Reny Gar MD LAB BLOOD BKR ORDE RABBLAIRE Final Result Performing Organization Address [facility] Co de Phone Number [address] [address] * Alanine aminotransferase (ALT) (02/14/2021 8:24 AM EDT) ALT 11 0 - 40 U/L [facility] Blood 02/14/2021 8:24 AM EDT 02/14/2021 8:29 AM EDT us Reny Gar MD LAB BLOOD BKR ORDE RABLES Final Result Performing Organization Address [facility]/ZIP Co de Phone Number [address] [address] * (ABNORMAL) BUN (02/14/2021 8:24 AM EDT) BUN 25(H) 6 - 19 mg/dL [facility] Blood 02/14/2021 8:24 AM EDT 02/14/2021 8:29 AM EDT us Reny Gar MD LAB BLOOD BKSierra XIAO FRANK Final Result [address] [address] * (ABNORMAL) Creatinine/eGFR (02/14/2021 8:24 AM EDT) CREATININE 1.00 0.5 - 1.5 mg/dL [facility] EGFR 55(L) >59 mL/min/1.7 3m2 [facility] Comment:Estimated glomerular filtration rate calculated using the CKD-EPI equation. Blood 02/14/2021 8:24 AM EDT 02/14/2021 8:29 AM EDT us Reny Gar MD LAB BLOOD CHANELLE MARIE Final Result Performing Organization Address [facility]/ZIP Co de Phone Number [address] [address] * C-Reactive Protein (02/14/2021 8:24 AM EDT) C REACTIVE PROTEIN 3.8 0.0 - 4.0 mg/L [facility] Blood 02/14/2021 8:24 AM EDT 02/14/2021 8:29 AM EDT us Reny Gar MD LAB BLOOD BKR XIAO FRANK Final Result [address] [address] * Sedimentation rate (ESR) (02/14/2021 8:24 AM EDT) ESR 21 0 - 30 mm/h [facility] Blood 02/14/2021 8:24 AM EDT 02/14/2021 8:29 AM EDT Reny Gar MD LAB BLOOD BKR XIAO HERMANBLAIRE Final Result [address] [address] * (ABNORMAL) CBC and differential (02/14/2021 8:24 AM EDT) WBC 11.91(H) 4.00 - 11.00 K/uL [facility] RBC 4.27 3.72 - 5.30 M/uL [facility] HGB 12.6 11.4 - 15.9 g/dL [facility] HCT 38.6 34.2 - 46.8 % [facility] PLT 294 140 - 430 K/uL [facility] MCV 90.4 78.0 - 97.0 fL [facility] MCH 29.5 25.0 - 33.0 pg [facility] MCHC 32.6 32.0 - 36.0 g/dL [facility] RDW 13.9 11.0 - 16.0 % [facility] MPV 11.1 8.4 - 12.8 fl [facility] NRBC 0.00 0 /100 WBCs [facility] ABSOLUTE NRBC 0.00 0 K/uL [facility] DIFF METHOD Auto [facility] NEUTS 73.9 43.0 - 75.0 % [facility] LYMPHS 12.8(L) 18.2 - 47.4 % [facility] MONOS 6.2 4.00 - 11.00 % [facility] EOS 6.0 0.0 - 8.0 % [facility] BASOS 0.8 0.0 - 2.0 % [facility] Granulocytes, immature (%) 0.3 0.0 - 0.9 % [facility] ABSOLUTE NEUTS 8.78(H) 1.80 - 7.70 K/uL [facility] ABSOLUTE LYMPHS 1.53 1.00 - 3.10 K/uL [facility] ABSOLUTE MONOS 0.74 0.20 - 0.80 K/uL [facility] ABSOLUTE EOS 0.72 0.00 - 0.80 K/uL [facility] ABSOLUTE BASOS 0.10(H) 0.00 - 0.09 K/uL [facility] Granulocytes, immature 0.04 0.00 - 0.05 K/uL [facility] Blood 02/14/2021 8:24 AM EDT 02/14/2021 8:29 AM EDT us Reny Gar MD LAB BLOOD BKR ORDE RABBLAIRE Final Result Performing Organization Address City/[facility]/ZIP Co de Phone Number [address] [address] * (ABNORMAL) Albumin (11/21/2020 9:57 AM EST) ALBUMIN 3.6(L) 3.9 - 4.8 g/dL [facility] Blood 11/21/2020 9:57 AM EST 11/21/2020 10:01 AM EST us Reny Gar MD LAB BLOOD BKR ORDE FRANK Final Result Performing Organization Address City/[facility]/ZIP Co de Phone Number [address] [address] * Aspartate aminotransferase (AST) (11/21/2020 9:57 AM EST) AST 29 0 - 37 U/L [facility] Blood 11/21/2020 9:57 AM EST 11/21/2020 10:01 AM EST us Reny Gar MD LAB BLOOD BKR ORDE FRANK Final Result Performing Organization Address City/[facility]/ZIP Co de Phone Number [address] [address] * Alanine aminotransferase (ALT) (11/21/2020 9:57 AM EST) ALT 15 0 - 40 U/L [facility] Blood 11/21/2020 9:57 AM EST 11/21/2020 10:01 AM EST Reny Gar MD LAB BLOOD BKR ORDE RABBLAIRE Final Result [address] [address] * (ABNORMAL) C-Reactive Protein (11/21/2020 9:57 AM EST) C REACTIVE PROTEIN 5.7(H) 0.0 - 4.0 mg/L [facility] Blood 11/21/2020 9:57 AM EST 11/21/2020 10:01 AM EST Reny Gar MD LAB BLOOD BKR NOAHE HERMANBLAIRE Final Result Performing Organization Address City/[facility]/ZIP Co de Phone Number [address] [address] * Sedimentation rate (ESR) (11/21/2020 9:57 AM EST) ESR 10 0 - 30 mm/h [facility] Blood 11/21/2020 9:57 AM EST 11/21/2020 10:01 AM EST Reny Gar MD LAB BLOOD BKR ORDE RABBLAIRE Final Result Performing Organization Address City/[facility]/ZIP Co de Phone Number [address] [address] * (ABNORMAL) CBC and differential (11/21/2020 9:57 AM EST) WBC 9.21 4.00 - 11.00 K/uL [facility] Comment:Note Reference Range updates to all CBC and Differential results. RBC 4.15 3.72 - 5.30 M/uL [facility] HGB 11.9 11.4 - 15.9 g/dL [facility] Comment:Note updated Referen ce Ranges for all CBC and Differential results. HCT 37.4 34.2 - 46.8 % [facility] PLT 289 140 - 430 K/uL [facility] MCV 90.1 78.0 - 97.0 fL [facility] MCH 28.7 25.0 - 33.0 pg [facility] MCHC 31.8(L) 32.0 - 36.0 g/dL [facility] RDW 14.8 11.0 - 16.0 % [facility] MPV 11.1 8.4 - 12.8 fl [facility] NRBC 0.00 0 /100 WBCs [facility] ABSOLUTE NRBC 0.00 0 K/uL [facility] DIFF METHOD Auto [facility] NEUTS 69.7 43.0 - 75.0 % [facility] LYMPHS 17.6(L) 18.2 - 47.4 % [facility] MONOS 6.1 4.00 - 11.00 % [facility] EOS 5.3 0.0 - 8.0 % [facility] BASOS 1.0 0.0 - 2.0 % [facility] Granulocytes, immature (%) 0.3 0.0 - 0.9 % [facility] ABSOLUTE NEUTS 6.42 1.80 - 7.70 K/uL [facility] ABSOLUTE LYMPHS 1.62 1.00 - 3.10 K/uL [facility] ABSOLUTE MONOS 0.56 0.20 - 0.80 K/uL [facility] ABSOLUTE EOS 0.49 0.00 - 0.80 K/uL [facility] ABSOLUTE BASOS 0.09 0.00 - 0.09 K/uL [facility] Granulocytes, immature 0.03 0.00 - 0.05 K/uL [facility] Blood 11/21/2020 9:57 AM EST 11/21/2020 10:01 AM EST Reny Gar MD LAB BLOOD BKR XIAO MARIE Final Result [facility] [address] [place] [address] documented in this encounter Visit Diagnoses Diagnosis Encounter for long-term (current) use of other medications- Primary documented in this encounter Additional Health Concerns Infection Onset Date Last Indicated Resolved Time CoV-Exposed Comment:Recent close contact documented in the COVID-19 Amb Triage Form 10/08/2021 10/11/2021 10/23/2021 1:[address] Assessment Noted Time PHQ-2 Depression Total Score: 2 08/14/20 9:49 AM EDT documented as of this encounter Care Teams Assistant Manager Trainee Relationship Specialty Start Date End Date Analy Blanco DO [address] [place] [phone] [email or web address] PCP - General 10/31/18 03/02/21 Pina Guerra MD [address] [place] [address] [email or web address] PCP - General Family Medicine 03/03/21 Alix Reyes [place] [facility] [place] [address] Historical LMR Provider 08/17/17 2 José Manuel Leon MD [address] [place] [address] [email or web address] Historical LMR Provider 08/17/17 11/04/21 Cody Colbert MD [address] [place] [address] Historical LMR Provider 08/17/17 Meenakshi Garcia NP [address] [place] [address] [email or web address] Historical LMR Provider 08/17/17 2 Muriel Swenson MD [address] [facility], 2nd [place] [address] Historical LMR Provider 08/17/17 Paula Rivera PA-C [address] [place] [address] Orthopedics [facility] Sports Medicine, [place] [address] Historical LMR Provider 08/17/17 11/04/21 Светлана Simpson MD [address] [place] [address] Orthopedics & Sports [facility], [place] [address] [email or web address] Historical LMR Provider 08/17/17 documented as of this encounter Additional Source Comments The information contained in this document represents components of the legal health record. It is not the complete legal health record.[facility]
--- OUTSIDE RECORDS SUMMARY | 2025-08-31 11:45 | XMS_ITS | Encounter Summary ---
Author Organization [facility] Address [address] [place] [address] Phone Care Team Providers Care Chief Fishery Division Name Role Phone Phi Caballero MD Unavailable [phone] Phi Caballero MD Unavailable [phone] Alix Reyes Unavailable Katie Gaming MD Unavailable [phone] José Manuel Leon MD Unavailable Cody Colbert MD Unavailable Federico Coburn REGIONAL CLINICAL RESEARCH ASSOCIATE Unavailable [phone] Meenakshi Garcia EVENTS ADMINISTRATIVE ASSISTANT Unavailable [phone] Muriel Swenson MD Unavailable [phone] Paula Rivera PA-C Unavailable [phone] George Peterson MD Unavailable [phone] Светлана Simpson MD Unavailable Phi Caballero MD Primary Care Provide r + Nick Eagle MD Primary Care Provider Phi Caballero MD Primary Care Provide r Analy Blanco DO Primary Care Provider Pina Guerra MD Primary Care Provider [phone] Encounter Details Date Type Department Care Team (Late st Contact Info) Description 12/24/2017 Prep for Surgery [facility] Plastic Surgery [address] [place] [address] Jaspal Snider MD 40 [facility], [address] [place] [address] [email or web address] Social History Tobacco Use Types Packs/Day Years Used Date Smoking Tobacco: Former Cigarettes Q uit: 2014 Smokeless Tobacco: Never Alcohol Use Standard Drinks/Week Comments No 0 (1 standard drink = 0.6 oz pur e alcohol) Comments Unknown Sex and Gender Information Value Date Recorded Sex Assigned at Female 03/17/2020 11:24 AM EDT Legal Sex Female 10:09 PM EDT Gender Identity Female 03/17/2020 11:24 AM EDT Sexual Orientation Straight 03/17/2020 11 :24 AM EDT documented as of this encounter H&P Notes * Jaspal Snider MD - 12/24/2017 1:16 PM EST Emergency room consult: Open fracture nose History of present illness: Ms. Miller is a 72-year-old woman who was walking with her cane in 1hand and her phone in the other when her shoe lace became caught and she fell forward, striking herface on the wooden floor in her home. She presented to [facility] ER where CT scan was performed and she was noted to have minimally displaced nasal bone fractures as well as a large open laceration with exposure of the fractures on the dorsum of the nose. Plastic surgery was consulted for repair. Past medical history: Rheumatoid arthritis, hypertension, atrial fibrillation, hemorrhoids, basal cell carcinoma of the skin, osteoarthritis of cervical spine, hyperlipidemia, hyperparathyroidism, polymyalgia rheumatica, history of squamous cell skin cancer, obesity. 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 Current Outpatient Prescriptions: ??? adalimumab (HUMIRA) 40 mg/0.8 mL subcutaneous syringe, 0.8 ml, Disp: , Rfl: , Last Dispense: Unknown (patient-reported) ??? amoxicillin-clavulanate (AUGMENTIN) 875-125 mg per tablet, Take 1 tablet (875 mg of amoxicillintotal) by mouth 2 (two) times a day for 7 days., Disp: 14 tablet, Rfl: 0, Last Dispense: Unknown (outside pharmacy) ??? apixaban (ELIQUIS) 5 mg tablet, Take 1 tablet (5 mg total) by mouth 2 (two) times a day., Disp:60 tablet, Rfl: 6, Last Dispense: Unknown (outside pharmacy) ??? aspirin 81 MG EC tablet, 1 tablet, Disp: , Rfl: , Last Dispense: Unknown (patient-reported) ??? atenolol (TENORMIN) 25 MG tablet, Take 1 tablet (25 mg total) by mouth daily., Disp: 90 tablet,Rfl: 1, Last Dispense: Unknown (outside pharmacy) ??? cyanocobalamin (VITAMIN B-12) 1000 MCG tablet, , Disp: , Rfl: , Last Dispense: Unknown (patient-reported) ??? diclofenac sodium (VOLTAREN XR) 100 mg 24 hr tablet, 1 tablet, Disp: , Rfl: , Last Dispense: Unknown (patient-reported) ??? doxazosin (CARDURA) 2 MG tablet, Take 1 tablet (2 mg total) by mouth daily., Disp: 90 tablet, Rfl: 3, Last Dispense: Unknown (outside pharmacy) ??? enalapril (VASOTEC) 20 MG tablet, TAKE 1 TABLET TWICE A DAY, Disp: 180 tablet, Rfl: 3, Last Dispense: Unknown (outside pharmacy) ??? hydrocortisone acetate (ANUSOL-HC) 25 mg suppository, 1 suppository, Disp: , Rfl: , Last Dispense: Unknown (patient-reported) ??? IRON, FERROUS SULFATE, ORAL, , Disp: , Rfl: , Last Dispense: Unknown (patient-reported) ??? mupirocin (CENTANY AT) 2 % OKit, 1 application to affected area, Disp: , Rfl: , Last Dispense: Unknown (patient-reported) ??? pyridoxine, vitamin B6, (B-6) 100 MG tablet, 1 tablet, Disp: , Rfl: , Last Dispense: Unknown (patient-reported) ??? verapamil (VERELAN) 240 MG 24 hr capsule, Take 1 capsule (240 mg total) by mouth nightly., Disp: 90 capsule, Rfl: 1, Last Dispense: Unknown (outside pharmacy) No current facility-administered medications for this visit. Allergies Allergen Reactions ??? Penicillins ??? Plaquenil [Hydroxychloroquine] Social History Social History ??? Marital status: Unavailable Spouse name: N/A ??? Number of children: N/A ??? Years of education: N/A Occupational History ??? Not on file. Social History Main Topics ??? Smoking status: Former Smoker Quit date: 2014 ??? Smokeless tobacco: Never Used ??? Alcohol use No ??? Drug use: Not on file ??? Sexual activity: Not on file Other Topics Concern ??? 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 She lives alone. She has a niece locally who helps her. She takes care of her sister who has some dementia. Physical exam: Afebrile, vital signs stable. Alert and oriented ??3 pleasant, in no acute distress. There is an approximately 6 cm long vertically oriented wide open full-thickness laceration to the periosteum overthe bridge of the nasal dorsum extending from the dorsum into the glabella. There is a transverse minimally displaced fracture of the nasal bones which is exposed in the wound. The distal aspect of the wound is stellate. The tissues appear viable. The nose appears midline. There is good air flow through both nostrils. There is no septal hematoma. There are no palpable step-offs of the bony pyramid. There is a small hematoma with an overlying abrasion on the distal central forehead and glabella. Assessment and plan: Recommend washout and repair. The procedure, risks, and recuperation were described. The anesthetic, sutures, and expected outcome were discussed. Ms. Hendrickson verbalized understanding and wishes to proceed. Procedure: The wound was infiltrated with 2% lidocaine with epinephrine. The wound was then irrigated with copious amounts of dilute chlorhexidine gluconate followed by saline. The patient did not experience fluid in her mouth or in the nose during the irrigation. Some nonviable tissue was debrided. The wound was closed with deep 5-0 Vicryl sutures followed by running and interrupted 5-0 Prolene sutures. Bacitracin ointment was applied. The patient tolerated the procedure well. I told her to expect some dramatic bruising and swelling over the next 48 hours due to the glabellar/forehead injury. Follow-up will be with me in my office in 5-7 days for wound check and suture removal. documented in this encounter Plan of Treatment Upcoming Encounters Date Type Department Care Team (Late st Contact Info) Description 09/29/2025 8:20 AM EST Office Visit [facility] [address] [address] Pina Guerra MD [address] [address] 10/13/2025 1:15 PM EST Office Visit [facility] 8 [place] [address] Carolina Bejarano MD [address] [address] [email or web address] King, PT 8 [place] [address] 10/25/2025 12:30 PM EST Office Visit [facility] [address] [place] [address] Carolina Bejarano MD [address] [address] [email or web address] King, PT 8 [place] [address] 10/29/2025 1:30 PM EST Office Visit [facility] [address] [place] [address] Carolina Bejarano MD [address] [place] [address] [email or web address], PT 8 [place] [address] 11/01/2025 1:00 PM EST Office Visit [address] [place] [address] Carolina Bejarano MD [address] [place] [address] [email or web address] Hugh [email or web address], ASSET ANALYST [address] [place] [address] 11/04/2025 1:45 PM EST Office Visit [address] [place] [address] Carolina Bejarano MD [address] [place] [address] [email or web address] Hugh [email or web address], ASSET ANALYST 8 [place] [address] 11/08/2025 12:30 PM EST Office Visit [address] [place] [address] Carolian Bejarano MD [address] [place] [address] [email or web address], PT 8 [place] [address] 11/11/2025 1:00 PM EST Office Visit [address] [place] [address] Carolina Bejarano MD [address] [place] [address] [email or web address], ASSET ANALYST 8 [place] [address] 11/15/2025 1:00 PM EST Office Visit [facility] 8 [place] [address] Carolina Bejarano MD [address] [place] [address] [email or web address], [facility] 8 [place] [address] 11/18/2025 12:15 PM EST Office Visit [facility] [address] [place] [address] Carolina Bejarano MD [address] [place] [address] [email or web address], PT 8 [place] [address] 12/29/2025 10:00 AM EST Office Visit [facility] [address] [place] [address] Carolina Bejarano MD [address] [place] [address] [email or web address] documented as of this encounter Visit Diagnoses Not on filedocumented in this encounter Additional Health Concerns Infection Onset Date Last Indicated Resolved Time CoV-Risk 03/17/2020 03/17/2020 03/17/2020 5:12 PM EDT CoV-Exposed Comment:Recent close contact documented in the COVID-19 Amb Triage Form 10/08/2021 10/11/2021 10/23/2021 1:[address] documented as of this encounter Care Teams Chief Fishery Division Relationship Specialty Start Date End Date Phi Caballero MD 4 [place] [address] [email or web address] PCP - General Internal Medicine 09/02/17 12/29/17 Nick Eagle MD 4 [place] [address] PCP - General Internal Medicine 12/30/17 12/30/17 Phi Caballero MD [address] [place] [address] [email or web address] PCP - General Internal Medicine 12/31/17 10/30/18 Analy Blanco DO [address] [place] [address] [email or web address] PCP - General 10/31/18 03/02/21 Pina Guerra MD [address] [address] [email or web address] PCP - General Family Medicine 03/03/21 Phi Caballero MD 22 [facility] 1 [place] [address] [email or web address] Insurance Assigned Provider 08/03/17 01/25/18 Phi Caballero MD 22 [facility] 1 [place] [address] [email or web address] Historical LMR Provider 08/17/17 03/17/19 Alix Reyes PA [facility] [place] [address] Historical LMR Provider 08/17/17 2 Katie Gaming MD 22 [facility], [address] [place] [address] [email or web address] Historical LMR Provider 08/17/17 José Manuel Leon MD [address] [place] [address] [email or web address] Historical LMR Provider 08/17/17 11/04/21 Cody Colbert MD [address] [place] [address] Historical LMR Provider 08/17/17 Federico Coburn, MEHRAN [address] [place] [address] [address] [place] [address] [email or web address] Historical LMR Provider 08/17/17 03/17/19 Meenakshi Garcia EVENTS ADMINISTRATIVE ASSISTANT [address] [place] [address] [email or web address] Historical LMR Provider 08/17/17 2 Muriel Swenson MD 15 [facility], 2nd [place] [address] [email or web address] Historical LMR Provider 08/17/17 Paula Rivera PA-C 4 [facility], [place] [address] [email or web address] Historical LMR Provider 08/17/17 11/04/21 George Peterson MD [address] [place] [address], [address] [place] [address] [email or web address] Historical LMR Provider 08/17/17 Светлана Simpson MD 4 [facility], [place], [place] [id number] [email or web address] Historical LMR Provider 08/17/17 documented as of this encounter Additional Source Comments The information contained in this document represents components of the legal health record. It is not the complete legal health record.[facility]
--- OUTSIDE RECORDS SUMMARY | 2025-08-31 11:45 | XMS_ITS | Encounter Summary ---
Author Organization [facility] Address [address] [place] [address] Phone Care Team Providers Care Hide And Skin Processing Worker Name Role Phone Pina Guerra MD Primary Care Provider [phone] Encounter Details Date Type Department Care Team (Late st Contact Info) Description 12/19/2022 Procedure Pass Echo Lab [address] [place] [address] Social History Tobacco Use Types Packs/Day Years [...] high school, GED, job training, learning the [place] language, technical skills, or developing parenting skills)? [...] Description 09/29/2025 8:20 AM EST Office Visit [facility] [address] [address] Pina Guerra MD [address] [address] 10/13/2025 1:15 PM EST Office Visit [facility] 8 [place] [address] Carolina Bejarano MD [address] [place] [address] [email or web address], PT 8 [place] [address] 10/25/2025 12:30 PM EST Office Visit [facility] 8 [place] [address] Carolina Bejarano MD [address] [place] [address] [email or web address], PT 8 [place] [address] 10/29/2025 1:30 PM EST Office Visit [address] [address] Carolina Bejarano MD [address] [place] [address] [email or web address], PT 8 [place] [address] 11/01/2025 1:00 PM EST Office Visit [address] [address] Carolina Bejarano MD [address] [place] [address] [email or web address] Hugh [email or web address], AUTOMOBILE RADIO REPAIRER [address] [place] [address] 11/04/2025 1:45 PM EST Office Visit [address] [address] Carolina Bejarano MD [address] [place] [address] [email or web address] Hugh [email or web address], AUTOMOBILE RADIO REPAIRER 8 [place] [address] 11/08/2025 12:30 PM EST Office Visit [address] [address] Carolina Bejarano MD [address] [place] [address] [email or web address], PT 8 [place] [address] 11/11/2025 1:00 PM EST Office Visit [facility] [address] [place] [address] Carolina Bejarano MD [address] [place] [address] [email or web address] Hugh [email or web address], AUTOMOBILE RADIO REPAIRER 8 [place] [address] 11/15/2025 1:00 PM EST Office Visit [facility] [address] [place] [address] Carolina Bejarano MD [address] [place] [address] [email or web address] Hugh [email or web address], AUTOMOBILE RADIO REPAIRER 8 [place] [address] 11/18/2025 12:15 PM EST Office Visit [facility] [address] [place] [address] Carolina Bejarano MD [address] [place] [address] [email or web address], PT 8 [place] [address] 12/29/2025 10:00 AM EST Office Visit [facility] [address] [place] [address] Carolina Bejarano MD [address] [place] [address] [email or web address] documented as of this encounter Visit Diagnoses Not on filedocumented in this encounter Additional Health Concerns Assessment Noted Time PHQ-2 Depression Total Score: 1 08/07/20 21 11:21 AM EDT documented as of this encounter Care Teams Hide And Skin Processing Worker Relationship Specialty Start Date End Date Pina Guerra MD [address] [place], [place] [id number] [email or web address] PCP - General Family Medicine 03/03/21 documented as of this encounter Additional Source Comments The information contained in this document represents components of the legal health record. It is not the complete legal health record.[facility]
--- OUTSIDE RECORDS SUMMARY | 2025-08-31 11:45 | XMS_ITS | Encounter Summary ---
Author Organization [facility] Address [address] [place] [address] Phone Care Team Providers Care Ward Service Supervisor Name Role Phone Phi Caballero MD Unavailable +[phone] Phi Caballero MD Unavailable +1-4 Alix Reyes Unavailable [phone] Katie Gaming MD Unavailable [phone] José Manuel Leon MD Unavailable Cody Colbert MD Unavailable Federico Coburn SUPERVISOR WATER [employer]REAT[employer] PLANT Unavailable [phone] Meenakshi Garcia C WEB DEVELOPER Unavailable [phone] Muriel Swenson MD Unavailable [phone] Paula Rivera PA-C Unavailable +[phone] George Peterson MD Unavailable [phone] Светлана Simpson MD Unavailable Phi Caballero MD Primary Care Provide r + Nick Eagle MD Primary Care Provider Phi Caballero MD Primary Care Provide r Analy Blanco DO Primary Care Provider Pina Guerra MD Primary Care Provider [phone] Encounter Details Date Type Department Care Team (Late st Contact Info) Description 12/23/2017 Procedure Pass [facility], Ct Scan - [facility] [address] [place] [address] Social History Tobacco Use Types Packs/Day Years [...] Encounters Date Type Department Care Team (Late Contact Info) Description 09/29/2025 8:20 AM EST Office Visit [facility] Primary Care [address] [address] Pina Guerra MD [address] [address] 10/13/2025 1:15 PM EST Office Visit [facility] 8 [place] [address] Carolina Bejarano MD [address] [place] [address] [email or web address], PT 8 [place] [address] 10/25/2025 12:30 PM EST Office Visit [facility] 8 [place] [address] Carolina Bejarano MD [address] [place] [address] [email or web address], PT 8 [place] [address] 10/29/2025 1:30 PM EST Office Visit [facility] 8 [place] [address] Carolina Bejarano MD [address] [place] [address] [email or web address], PT 8 [place] [address] 11/01/2025 1:00 PM EST Office Visit [address] [address] Carolina Bejarano MD [address] [place] [address] [email or web address], DROP MACHINE OPERATOR [address] [place] [address] 11/04/2025 1:45 PM EST Office Visit [address] [address] Carolina Bejarano MD [address] [place] [address] [email or web address], DROP MACHINE OPERATOR 8 [place] [address] 11/08/2025 12:30 PM EST Office Visit [address] [address] Carolina Bejarano MD [address] [place] [address] [email or web address], PT 8 [place] [address] 11/11/2025 1:00 PM EST Office Visit [facility] [address] [place] [address] Carolina Bejarano MD [address] [place] [address] [email or web address], DROP MACHINE OPERATOR 8 [place] [address] 11/15/2025 1:00 PM EST Office Visit [facility] 8 [place] [address] Carolina Bejarano MD [address] [place] [address] [email or web address], DROP MACHINE OPERATOR 8 [place] [address] 11/18/2025 12:15 PM EST Office Visit [facility] [address] [place] [address] Carolina Bejarano MD [address] [place] [address] [email or web address], PT 8 [place] [address] 12/29/2025 10:00 AM EST Office Visit [facility] [address] [place] [address] Carolina Bejarano MD [address] [place] [address] [email or web address] documented as of this encounter Visit Diagnoses Not on filedocumented in this encounter Additional Health Concerns Infection Onset Date Last Indicated Resolved Time CoV-Risk 03/17/2020 03/17/2020 03/17/2020 5:12 PM EDT CoV-Exposed Comment:Recent close contact documented in the COVID-19 Amb Triage Form 10/08/2021 10/11/2021 10/23/2021 1:[address] documented as of this encounter Care Teams Ward Service Supervisor Relationship Specialty Start Date End Date Phi Caballero MD [address] [place] [address] [facility], [place] [address] [email or web address] PCP - General Internal Medicine 09/02/17 12/29/17 Nick Eagle MD [address] [place] [address] PCP - General Internal Medicine 12/30/17 12/30/17 Phi Caballero MD [address] [place] [address] [email or web address] PCP - General Internal Medicine 12/31/17 10/30/18 Analy Blanco DO [address] [place] [address] [email or web address] PCP - General 10/31/18 03/02/21 Pina Guerra MD 15 [facility] [address] [place] [address] [email or web address] PCP - General Family Medicine 03/03/21 Phi Caballero MD 22 [facility] Floor 1 [place] [address] [email or web address] Insurance Assigned Provider 08/03/17 01/25/18 Phi Caballero MD 22 [facility] Floor 1 [place] [address] [email or web address] Historical LMR Provider 08/17/17 03/17/19 Alix Reyes PA [facility] [place] [address] Historical LMR Provider 08/17/17 2 Katie Gaming MD [address] [place] [address], [address] [place] [address] [email or web address] Historical LMR Provider 08/17/17 José Manuel Leon MD [address] [place] [address] [email or web address] Historical LMR Provider 08/17/17 11/04/21 Cody Colbert MD [address] [place] [address] Historical LMR Provider 08/17/17 Federico Coburn, MEHRAN [address] [place] [address], [address] [place] [address] [email or web address] Historical LMR Provider 08/17/17 03/17/19 Meenakshi Garcia, C WEB DEVELOPER [address] [place] [address] [email or web address] Historical LMR Provider 08/17/17 2 Muriel Swenson MD 15 [facility], 2nd [place] [address] Historical LMR Provider 08/17/17 Paula Rivera PA-C 4 [facility], [place] [address] Historical LMR Provider 08/17/17 11/04/21 George Peterson MD 22 [facility], [address] [place] [address] Historical LMR Provider 08/17/17 Светлана Simpson MD 4 [facility], [place] [address] Historical LMR Provider 08/17/17 documented as of this encounter Additional Source Comments The information contained in this document represents components of the legal health record. It is not the complete legal health record.[facility]
--- OUTSIDE RECORDS SUMMARY | 2025-08-31 11:45 | XMS_ITS | Encounter Summary ---
Author Organization [facility] Address [address] [place] [address] Care Team Providers Care Teacher Of The Visually Impaired Name Role Phone Pina Guerra Primary Care Provider [phone] Tessy Carr PHARMACIST Unavailable Unava ilable Encounter Details Date Type Department Care Team (Late st Contact Info) Description 04/25/2023 Orders Only [facility] Department of Rheumatology [address] [place] [address] Reny Gar MD [address] [facility] [place] [phone] Rheumatoid arthritis involving multiple sites, unspecified whether rheumatoid factor present (HCC) (Primary Dx) Social History Tobacco Use Types [...] Orientation Straight 10/15/2021 6: 21 PM EST COVID-19 Exposure Response Date Recorded In the last 10 days, have yo u been in contact with someone who was confirmed or suspected to have Coronavirus/COVID-19? No / Unsure 04/24/2023 9:23 AM EDT documented as of this encounter Plan of Treatment Upcoming Encounters Date Type Department Care Team (Late st Contact Info) Description 01/11/2026 11:00 AM EDT Office Visit [facility] Department of Rheumatology [address] [place] [address] Reny Gar MD [address] [facility] [place] [phone] Scheduled Orders Name Type Priority Associated Diagnoses Orde r Schedule CREATININE - SERUM (Q) Lab Routine Rheumatoid arthritis involving multiple sites, unspecified whether rheumatoid factor present (HCC) 1 Occurrences starting 04/25/2023 until 04/25/2024 documented as of this encounter Visit Diagnoses Diagnosis Rheumatoid arthritis involving multiple sites, unspecified whether rheumatoid factor present (HCC)- Primary documented in this encounter Care Teams Teacher Of The Visually Impaired Relationship Specialty Start Date End Date JorgePina whitney [address] [place] [address] PCP - General Primary Care 07/21/21 Tessy Carr, PHARMACIST [address] [place] [address] Pharmacy 11/05/23 documented as of this encounter
--- OUTSIDE RECORDS SUMMARY | 2025-08-31 11:45 | XMS_ITS | Encounter Summary ---
Author Organization [facility] Address [address] [place] [address] Phone Care Team Providers Care Employee Relations Specialist Name Role Phone Phi Caballero MD Unavailable +1-4 Phi Caballero MD Unavailable +1-4 Alix Reyes Unavailable [phone] Katie Gaming MD Unavailable [phone] José Manuel Leon MD Unavailable Cody Colbert MD Unavailable Federico Coburn RESPIRATORY SCIENTIST Unavailable [phone] Meenakshi Garcia SKI LIFT ATTENDANT Unavailable [phone] Muriel Swenson MD Unavailable [phone] Paula Rivera PA-C Unavailable [phone] George Peterson MD Unavailable [phone] Светлана Simpson MD Unavailable Phi Caballero MD Primary Care Provide r + Nick Eagle MD Primary Care Provider Phi Caballero MD Primary Care Provide r Analy Blanco DO Primary Care Provider Pina Guerra MD Primary Care Provider [phone] Encounter Details Date Type Department Care Team (Late st Contact Info) Description 12/23/2017 Procedure Pass [facility], Ct Scan - [facility] 30 [place] [address] Social History Tobacco Use Types Packs/Day Years [...] Description 09/29/2025 8:20 AM EST Office Visit [facility] Primary Care [address] [address] Pina Guerra MD [address] [address] 10/13/2025 1:15 PM EST Office Visit [facility] 8 [place] [address] Carolina Bejarano MD [address] [place] [address] [email or web address] King, PT 8 [place] [address] 10/25/2025 12:30 PM EST Office Visit [facility] 8 [place] [address] Carolina Bejarano MD [address] [place] [address] [email or web address] King, PT 8 [place] [address] 10/29/2025 1:30 PM EST [facility] 8 [place] [address] Carolina Bejarano MD [address] [place] [place] [address] [email or web address] King, PT 8 [place] [address] 11/01/2025 1:00 PM EST Office Visit [address] [address] Carolina Bejarano MD [address] [place] [place] [address] [email or web address] Hugh Burt, TIGHTENER [address] [place] [address] 11/04/2025 1:45 PM EST Office Visit [address] [address] Carolina Bejarano MD [address] [place] [place] [address] [email or web address] Hugh Burt, TIGHTENER 8 [place] [address] 11/08/2025 12:30 PM EST Office Visit [address] [address] Carolina Bejarano MD [address] [place] [place] [address] [email or web address] King, PT 8 [place] [address] 11/11/2025 1:00 PM EST [facility] [address] [place] [address] Carolina Bejarano MD [address] [place] [place] [address] [email or web address] Hugh [email or web address], TIGHTENER 8 [place] [address] 11/15/2025 1:00 PM EST Office [facility] 8 [place] [address] Carolina Bejarano MD [address] [place] [place] [address] [email or web address] Hugh [email or web address], TIGHTENER 8 [place] [address] 11/18/2025 12:15 PM EST Office [facility] [address] [place] [address] Carolina Bejarano MD [address] [place] [place] [address] [email or web address] King, PT 8 [place] [address] 12/29/2025 10:00 AM EST Office Visit [facility] [address] [place] [address] Carolina Bejarano MD [address] [place] [place] [address] [email or web address] documented as of this encounter Visit Diagnoses Not on filedocumented in this encounter Additional Health Concerns Infection Onset Date Last Indicated Resolved Time CoV-Risk 03/17/2020 03/17/2020 03/17/2020 5:12 PM EDT CoV-Exposed Comment:Recent close contact documented in the COVID-19 Amb Triage Form 10/08/2021 10/11/2021 10/23/2021 1:[address] documented as of this encounter Care Teams Employee Relations Specialist Relationship Specialty Start Date End Date Phi Caballero MD [address] [place] [address] [facility], [place] [address] [email or web address] PCP - General Internal Medicine 09/02/17 12/29/17 Nick Eagle MD [address] [place] [address] PCP - General Internal Medicine 12/30/17 12/30/17 Phi Caballero MD [address] [place] [address] [email or web address] PCP - General Internal Medicine 12/31/17 10/30/18 Analy Blanco DO [address] [place] [address] [email or web address] PCP - General 10/31/18 03/02/21 Pina Guerra MD 15 [facility] [address] [place] [address] [email or web address] PCP - General Family Medicine 03/03/21 Phi Caballero MD 22 [facility] Floor 1 [place] [address] [email or web address] Insurance Assigned Provider 08/03/17 01/25/18 Phi Caballero MD 22 [facility] Floor 1 [place] [address] [email or web address] Historical LMR Provider 08/17/17 03/17/19 Alix Reyes PA [facility] [place] [address] Historical LMR Provider 08/17/17 2 Katie Gaming MD [address] [place] [address], [address] [place] [address] [email or web address] Historical LMR Provider 08/17/17 José Manuel Leon MD [address] [place] [address] [email or web address] Historical LMR Provider 08/17/17 11/04/21 Cody Colbert MD [address] [place] [address] Historical LMR Provider 08/17/17 Federico Coburn, MEHRAN [address] [place] [address], [address] [place] [address] [email or web address] Historical LMR Provider 08/17/17 03/17/19 Meenakshi Garcia, SKI LIFT ATTENDANT [address] [place] [address] [email or web address] Historical LMR Provider 08/17/17 2 Muriel Swenson MD 15 [facility], 2nd [place] [address] Historical LMR Provider 08/17/17 Paula Rivera PA-C 4 [facility], [facility] [place] [address] Historical LMR Provider 08/17/17 11/04/21 George Peterson MD 22 [facility], [address] [place] [address] Historical LMR Provider 08/17/17 Светлана Simpson MD 4 [facility], [facility] [place] [address] Historical LMR Provider 08/17/17 documented as of this encounter Additional Source Comments The information contained in this document represents components of the legal health record. It is not the complete legal health record.[facility]
--- OUTSIDE RECORDS SUMMARY | 2025-08-31 11:45 | XMS_ITS | Clinical Summary ---
Author Organization [facility] Address [address] [place] [address] Care Team Providers Care Dirt Shoveler Name Role Phone Unavailable Primary Care Provider Unavailabl e Social History Tobacco Use Types Packs/Day Years Used Date Smoking Tobacco: Never Assessed Comments Unknown Sex and Gender Information Value Date Recorded Sex Assigned at Not on file Legal Sex Female 4:22 PM EDT Gender Identity Not on file Sexual Orientation Not on file Plan of Treatment Health Maintenance Due Date Last Done Comments Advance Care Planning 1945 DTaP/Tdap/Td Vaccines (1 - Tdap) 1963 Pneumococcal Vaccines 50+ (1 of 1 - PCV) 1994 Zoster (Shingles) Vaccine (1 of 2) 1994 RSV Vaccine 50 years and old er and Patients (1 - 1-dose 75+ series) 2019 COVID-19 Vaccine (2023-2 5 season) 2025 Hepatitis B Vaccines Aged Out No long er eligible based on patient's age to complete this topic
--- OUTSIDE RECORDS SUMMARY | 2025-08-31 11:45 | XMS_ITS | Encounter Summary ---
Author Organization [facility] Address [address] [place] [address] Care Team Providers Care Legal Adviser Name Role Phone Pcp, Quiana SOL Primary Care Provider UnavailAnaly Guardado Primary Care Provider [phone] Pina Guerra Primary Care Provider [phone] Tessy Carr PHARMACIST Unavailable Unava ilable Encounter Details Date Type Department Care Team (Late st Contact Info) Description 09/13/2020 Orders Only [facility] Department of Rheumatology [address] [place] [address] Jose Luis [place] [address] [place] [address] Encounter for long-term current use of medication; [...] Description 01/11/2026 11:00 AM EDT Office Visit [facility] Department of Rheumatology [address] [place] [phone] Reny Gar MD 263 [facility] [address] Scheduled Orders Name Type Priority Associated Diagnoses [...] (HCC) documented in this encounter Care Teams Legal Adviser Relationship Specialty Start Date End Date PcpQuiana MD [address] [place] [address] PCP - General Internal Medicine 07/21/18 09/19/20 Analy Blanco [address] [place] [address] PCP - General 09/20/20 07/20/21 Pina Guerra [address] [place] [address] PCP - General Primary Care 07/21/21 Tessy Carr, PHARMACIST [address] [place] [address] Pharmacy 11/05/23 documented as of this encounter
--- OUTSIDE RECORDS SUMMARY | 2025-08-31 11:45 | XMS_ITS | Encounter Summary ---
Author Organization [facility] Address [address] [place] [address] Phone Care Team Providers Care Environmental Health Physician Name Role Phone Phi Caballero MD Unavailable [phone] Phi Caballero MD Unavailable [phone] Pcp, Unknown Primary Care Provider Unavailabl Alix Layton Unavailable Katie Gaming MD Unavailable [phone] José Manuel Leon MD Unavailable Cody Colbert MD Unavailable [phone] Federico Coburn GROUNDSMAN Unavailable [phone] Meenakshi Garcia STEREO OPERATOR Unavailable [phone] Muriel Swenson MD Unavailable [phone] Paula Rivera-C Unavailable [phone] George Peterson MD Unavailable [phone] Светлана Simpson MD Unavailable Phi Caballero MD Primary Care Provide r + Nick Eagle MD Primary Care Provider Phi Caballero MD Primary Care Provide r Analy Blanco DO Primary Care Provider + [phone] Pina Guerra MD Primary Care Provider [phone] Encounter Details Date Type Department Care Team (Latest Contact Info) Description 08/17/2017 Ancillary Orders [facility] 22 [facility] 3rd Floor, [address] [place] [address] Michele Lemon MD [address] [address] Diagnosis unknown Social History Tobacco Use Types Packs/Day Years [...] Description 09/29/2025 8:20 AM EST Office Visit [facility] [address] [address] Pina Guerra MD 15 [facility] Rolando. [address] [place] [address] 10/13/2025 1:15 PM EST Office Visit [facility] 8 [place] [address] Carolina Bejarano MD [address] [address] [email or web address] King, PT 8 [place] [address] 10/25/2025 12:30 PM EST Office Visit [facility] 8 [place] [address] Carolina Bejarano MD [address] [address] [email or web address] King, PT 8 [place] [address] 10/29/2025 1:30 PM EST Office Visit [address] [address] Carolina Bejarano MD [address] [place] [address] [email or web address] King, PT 8 [place] [address] 11/01/2025 1:00 PM EST Office Visit [address] [address] Carolina Bejarano MD [address] [place] [address] [email or web address] Hugh [email or web address], POT HOLDER BINDER [address] [place] [address] 11/04/2025 1:45 PM EST Office Visit [address] [address] Carolina Bejarano MD [address] [place] [address] [email or web address], POT HOLDER BINDER [address] [place] [address] 11/08/2025 12:30 PM EST Office Visit [address] [address] Carolina Bejarano MD [address] [place] [address] [email or web address] King, PT 8 [place] [address] 11/11/2025 1:00 PM EST Office Visit [facility] 8 [place] [address] Carolina Bejarano MD [address] [place] [address] [email or web address] Hugh [email or web address], POT HOLDER BINDER 8 [place] [address] 11/15/2025 1:00 PM EST Office Visit [address] [address] Carolina Bejarano MD [address] [place] [address] [email or web address] Hugh [email or web address], POT HOLDER BINDER 8 [place] [address] 11/18/2025 12:15 PM EST Office Visit [facility] 8 [place] [address] Carolina Bejarano MD [address] [place] [address] [email or web address] King, PT 8 [place] [address] 12/29/2025 10:00 AM EST Office Visit [facility] Garcia [address] [place] [address] Carolina Bejarano MD [address] [place] [address] [email or web address] documented as of this encounter Visit Diagnoses Diagnosis Diagnosis unknown documented in this encounter Additional Health Concerns Infection Onset Date Last Indicated Resolved Time CoV-Risk 03/17/2020 03/17/2020 03/17/2020 5:12 PM EDT CoV-Exposed Comment:Recent close contact documented in the COVID-19 Amb Triage Form 10/08/2021 10/11/2021 10/23/2021 1:[address] documented as of this encounter Care Teams Environmental Health Physician Relationship Specialty Start Date End Date Pcp, Unknown PCP - General 08/17/17 09/01/17 Phi Caballero MD 4 [place] [address] [email or web address] PCP - General Internal Medicine 09/02/17 12/29/17 Nick Eagle MD [address] [place] [address] PCP - General Internal Medicine 12/30/17 12/30/17 Phi Caballero MD [address] [place] [address] [email or web address] PCP - General Internal Medicine 12/31/17 10/30/18 Analy Blanco DO [address] [place] [address] [email or web address] PCP - General 10/31/18 03/02/21 Pina Guerra MD [address] [address] [email or web address] PCP - General Family Medicine 03/03/21 Phi Caballero MD 22 [facility] 1 [place] [address] [email or web address] Insurance Assigned Provider 08/03/17 01/25/18 Phi Caballero MD 22 [facility] 1 [place] [address] [email or web address] Historical LMR Provider 08/17/17 03/17/19 Alix Reyes PA [facility] [place] [address] Historical LMR Provider 08/17/17 2 Katie Gaming MD [address] [place] [address], [address] [place] [address] [email or web address] Historical LMR Provider 08/17/17 José Manuel Leon MD [address] [place] [address] [email or web address] Historical LMR Provider 08/17/17 11/04/21 Cody Colbert MD [address] [place] [address] Historical LMR Provider 08/17/17 Federico Coburn, MEHRAN [address] [place] [address], [address] [place] [address] [email or web address] Historical LMR Provider 08/17/17 03/17/19 Meenakshi Garcia STEREO OPERATOR [address] [place] [address] [email or web address] Historical LMR Provider 08/17/17 2 Muriel Swenson MD 15 [facility], 2nd [place] [address] Historical LMR Provider 08/17/17 Paula Rivera PA-C 4 [facility] [place] [address] Historical LMR Provider 08/17/17 11/04/21 George Peterson MD 22 [facility], [address] [place] [address] Historical LMR Provider 08/17/17 Светлана Simpson MD 4 [facility], [facility] [place] [address] Historical LMR Provider 08/17/17 documented as of this encounter Additional Source Comments The information contained in this document represents components of the legal health record. It is not the complete legal health record.[facility]
--- OUTSIDE RECORDS SUMMARY | 2025-08-31 11:45 | XMS_ITS | Encounter Summary ---
Author Organization [facility] Address [address] [place] [address] Care Team Providers Care Cotton Picking Machine Operator Name Role Phone Pcp, Quiana SOL Primary Care Provider UnavailAnaly Guardado Primary Care Provider [phone] Pina Guerra Primary Care Provider [phone] Tessy Carr PHARMACIST Unavailable Unava ilable Encounter Details Date Type Department Care Team (Late st Contact Info) Description 09/13/2020 Orders Only [facility] Department of Rheumatology [address] [place] [address] Reny Gar MD 263 [facility] [phone] Encounter for long-term current use of medication (Primary Dx); Rheumatoid arthritis involving multiple sites, unspecified whether rheumatoid factor present (HCC) Social History Tobacco Use Types Packs/Day Years Used Date Smoking Tobacco: Former Cigarettes 1 15 1 3 - 2007 Smokeless Tobacco: Never Alcohol Use Standard Drinks/Week [...] Description 01/11/2026 11:00 AM EDT Office Visit [facility] Department of Rheumatology [address] [place] [address] Reny Gar MD 263 [facility] [address] Pending Results Name Type Priority Associated Diagnoses Date /Time Urinalysis, complete Lab Routine Encounter for long-term current use of medication Rheumatoid arthritis involving multiple sites, unspecified whether rheumatoid factor present ([facility]) 04/24/2023 8:33 AM EDT Scheduled Orders Name Type Priority Associated Diagnoses Orde r Schedule Albumin Lab Routine Encounter for long-term current use of medication Every 8 Weeks for 8 Occurrences starting 09/13/2020 until 09/13/2021 AST (SGOT) Lab Routine Encounter for long-term current use of medication Every 8 Weeks for 8 Occurrences starting 09/13/2020 until 09/13/2021 ALT (SGPT) Lab Routine Encounter for long-term current use of medication Every 8 Weeks for 8 Occurrences starting 09/13/2020 until 09/13/2021 Blood urea nitrogen Lab Routine Encounter for long-term current use of medication Every 8 Weeks for 8 Occurrences starting 09/13/2020 until 09/13/2021 Complete blood count (CBC) and differential Lab Routine Encounter for long-term current use of medication Every 8 Weeks for 8 Occurrences starting 09/13/2020 until 09/13/2021 Creatinine, serum Lab Routine Encounter for long-term current use of medication Every 8 Weeks for 8 Occurrences starting 09/13/2020 until 09/13/2021 C-reactive protein Lab Routine Encounter for long-term current use of medication Every 8 Weeks for 8 Occurrences starting 09/13/2020 until 09/13/2021 Glomerular Filtration Rate Estimate Lab Routine Encounter for long-term current use of medication Every 8 Weeks for 8 Occurrences starting 09/13/2020 until 09/13/2021 Sedimentation rate Lab Routine Encounter for long-term current use of medication Every 8 Weeks for 8 Occurrences starting 09/13/2020 until 09/13/2021 Urinalysis, complete Lab Routine Encounter for long-term current use of medication Rheumatoid arthritis involving multiple sites, unspecified whether rheumatoid factor present (HCC) Every 8 Weeks for 8 Occurrences starting 09/13/2020 until 09/13/2021 documented as of this encounter Visit Diagnoses Diagnosis Encounter for long-term current use of medication- Primary Rheumatoid arthritis involving multiple sites, unspecified whether rheumatoid factor present (HCC) documented in this encounter Care Teams Cotton Picking Machine Operator Relationship Specialty Start Date End Date Quiana Chamberlain MD [address] [place] [address] PCP - General Internal Medicine 07/21/18 09/19/20 Analy Blanco 22 [place] [address] PCP - General 09/20/20 07/20/21 Pina Guerra 15 [place] [address] PCP - General Primary Care 07/21/21 Tessy Carr, PHARMACIST [address] [place] [phone] Pharmacy 11/05/23 documented as of this encounter
--- OUTSIDE RECORDS SUMMARY | 2025-08-31 11:45 | XMS_ITS | Encounter Summary ---
Author Organization [facility] Address [address] [place] [address] Phone Care Team Providers Care Factory Engineer Name Role Phone Pina Guerra MD Primary Care Provider [phone] Encounter Details Date Type Department Care Team (Latest Contact Info) Description 03/04/2023 Transcribe Orders Virtual Department [address] [place] [address] Angeline Cowan PA-C [address] [place] [address] [email or web address] Dysphagia, unspecified type (Primary Dx); Hiatal hernia Social History Tobacco Use Types Packs/Day Years Used Date Smoking Tobacco: Former Cigarettes 1 20 1 980 - 2000 Smokeless Tobacco: Never Alcohol Use [...] high school, GED, job training, learning the Algerian language, technical skills, or developing parenting skills)? [...] Description 09/29/2025 8:20 AM EST Office Visit [facility] [address] [address] Pina Guerra MD [address] [address] 10/13/2025 1:15 PM EST Office Visit [facility] 8 [place] [address] Carolina Bejarano MD 22 [facility] 3rd [place] [address] [email or web address] King, PT 8 [place] [address] 10/25/2025 12:30 PM EST Office Visit [address] [place] [address] Carolina Bejarano MD [address] [place] [address] [email or web address] King, PT 8 [place] [address] 10/29/2025 1:30 PM EST Office Visit [address] [address] Carolina Bejarano MD [address] [place] [address] [email or web address] King, PT 8 [place] [address] 11/01/2025 1:00 PM EST Office Visit [address] [address] Carolina Bejarano MD [address] [place] [address] [email or web address] Hugh Burt, [address] [address] 11/04/2025 1:45 PM EST Office Visit [address] [address] Carolina Bejarano MD [address] [place] [address] [email or web address] Hugh Burt, [address] [address] 11/08/2025 12:30 PM EST Office Visit [address] [place] [address] Carolina Bejarano MD [address] [place] [address] [email or web address] King, PT 8 [place] [address] 11/11/2025 1:00 PM EST Office Visit [facility] 8 [place] [address] Carolina Bejarano MD [address] [place] [address] [email or web address] Hugh Burt, [address] [place] [address] 11/15/2025 1:00 PM EST Office Visit [facility] 8 [place] [address] Carolina Bejarano MD [address] [place] [address] [email or web address] Hugh Burt, [address] 8 [place] [address] 11/18/2025 12:15 PM EST Office Visit [facility] 8 [place] [address] Carolina Bejarano MD [address] [place] [address] [email or web address] King, PT 8 [place] [address] 12/29/2025 10:00 AM EST Office Visit [facility] Garcia 22 [place] [address] Carolina Bejarano MD [address] [place] [address] [email or web address] documented as of this encounter Results * FL BARIUM SWALLOW ESOPHAGRAM SINGLE CONTRAST (03/19/2023 1:09 PM EDT) Anatomical Region Laterality Modality Chest Computed Radiogr aphy 03/19/2023 12:5 3 PM EDT Impressions 03/19/2023 1:01 PM EDT Large sliding-type hiatal hernia without significant esophageal or hypopharyngeal dysmotility, obstruction to liquids, or evidence of volvulus. FLUOROSCOPY TIME: 1 min. 10 sec; 75 IMAGES/FRAMES POS - [id number] Narrative 03/19/2023 1:01 PM EDT COMPARISON: 05/27/2020 modified video esophagram FINDINGS: A preliminary lateral view the neck reveals a stable anterior C3-6 fusion plate and degenerative disc changes and stable ventral osteophytes at C6-7. A single contrast study was performed. There was adequate tongue base control. 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 No significant piriform sinuses or vallecula residuum noted. Esophagus displayed normal luminal distensibility with mild caliber distention and foreshortening of the lumen due to the presence of a large sliding-type hiatal hernia containing the fundus and a considerable amount of the proximal gastric body. There was adequate drainage of residual contrast from the esophagus. No spontaneous gastroesophageal reflux or esophageal mucosal ulceration or focal stricture identified. The patient was unable to ingest a 13 mm barium tablet due to hesitancy. The gastroesophageal junction is positioned to the right of midline and although the herniated stomach has a relatively horizontal course I do not identify ruchi volvulus. Visualized portions of the distal stomach and proximal duodenum were grossly unremarkable. Procedure Note Leroy Gary MD - 03/19/2023 COMPARISON: 05/27/2020 modified video esophagram FINDINGS: A preliminary lateral view the neck reveals a stable anterior C3-6 fusionplate and degenerative disc changes and stable ventral osteophytes atC6-7. A single contrast study was performed. There was adequate tongue basecontrol. Once the swallows were triggered no epiglottic penetration,nasopharyngeal reflux, cricopharyngeal achalasia were demonstrated. Nosignificant piriform sinuses or vallecula residuum noted. Esophagusdisplayed normal luminal distensibility with mild caliber distention andforeshortening of the lumen due to the presence of a large sliding-typehiatal hernia containing the fundus and a considerable amount of theproximal gastric body. There was adequate drainage of residual contrastfrom the esophagus. No spontaneous gastroesophageal reflux or esophagealmucosal ulceration or focal stricture identified. The patient was unableto ingest a 13 mm barium tablet due to hesitancy. The gastroesophagealjunction is positioned to the right of midline and although the herniatedstomach has a relatively horizontal course I do not identify frankvolvulus. Visualized portions of the distal stomach and proximal duodenumwere grossly unremarkable. IMPRESSION: Large sliding-type hiatal hernia without significant esophageal orhypopharyngeal dysmotility, obstruction to liquids, or evidence ofvolvulus. FLUOROSCOPY TIME: 1 min. 10 sec; 75 IMAGES/FRAMES POS - [id number] Angeline Cowan PA-C [facility] Final Result documented in this encounter Visit Diagnoses Diagnosis Dysphagia, unspecified type- Primary Hiatal hernia Diaphragmatic hernia without mention of obstruction or gangrene Dysphagia, unspecified type Hiatal hernia Diaphragmatic hernia without mention of obstruction or gangrene documented in this encounter Additional Health Concerns Assessment Noted Time PHQ-2 Depression Total Score: 1 08/07/20 21 11:21 AM EDT documented as of this encounter Care Teams Factory Engineer Relationship Specialty Start Date End Date Pina Guerra MD [address] [place] [address] [email or web address] PCP - General Family Medicine 03/03/21 documented as of this encounter Additional Source Comments The information contained in this document represents components of the legal health record. It is not the complete legal health record.[facility]
--- OUTSIDE RECORDS SUMMARY | 2025-08-31 11:45 | XMS_ITS | Encounter Summary ---
Author Organization [facility] Address [address] [place] [address] Phone Care Team Providers Care Air Hole Driller Name Role Phone Alix Reyes Unavailable [phone] José Manuel Leon MD Unavailable Cody Colbert MD Unavailable Meenakshi Garcia NP Unavailable Muriel Swenson MD Unavailable [phone] Paula RiveraC Unavailable [phone] Светлана Simpson MD Unavailable [phone] Analy Blanco DO Primary Care Provider [phone] Pina Guerra MD Primary Care Provider [phone] Encounter Details Date Type Department Care Team (Late st Contact Info) Description 08/02/2020 Procedure Pass [facility] Endoscopy Admitting Dept Virtual Department [address] [place] [address] Social History Tobacco Use Types Packs/Day Years [...] Description 09/29/2025 8:20 AM EST Office Visit [facility] [address] [address] Pina Guerra MD 15 [facility] [place] [address] 10/13/2025 1:15 PM EST Office Visit [facility] 8 [place] [address] Carolina Bejarano MD [address] [place] [address] [email or web address] King, PT 8 [place] [address] 10/25/2025 12:30 PM EST Office Visit [facility] 8 [place] [address] Carolina Bejarano MD [address] [place] [address] [email or web address] King, PT 8 [place] [address] 10/29/2025 1:30 PM EST Office Visit [facility] 8 [place] [address] Carolina Bejarano MD [address] [place] [address] [email or web address] King, PT 8 [place] [address] 11/01/2025 1:00 PM EST Office Visit [facility] 8 [place] [address] Carolina Bejarano MD [address] [place] [address] [email or web address] Hugh [email or web address], OLIVE KNOCKER [address] [place] [address] 11/04/2025 1:45 PM EST Office Visit [facility] 8 [place] [address] Carolina Bejarano MD [address] [place] [address] [email or web address] Hugh Burt, [address] [address] 11/08/2025 12:30 PM EST Office Visit [facility] 8 [place] [address] Carolina Bejarano MD [address] [place] [address] [email or web address] King, PT 8 [place] [address] 11/11/2025 1:00 PM EST Office Visit [facility] 8 [place] [address] Carolina Bejarano MD [address] [place] [address] [email or web address] Hugh Burt, OLIVE KNOCKER [address] [place] [address] 11/15/2025 1:00 PM EST Office Visit [facility] 8 [place] [address] Carolina Bejarano MD [address] [place] [address] [email or web address] Hugh [email or web address], OLIVE KNOCKER 8 [place] [address] 11/18/2025 12:15 PM EST Office Visit [facility] 8 [place] [address] Carolina Bejarano MD [address] [place] [address] [email or web address], PT 8 [place] [address] 12/29/2025 10:00 AM EST Office Visit [facility] 22 [place] [address] Carolina Bejarano MD [address] [place] [address] [email or web address] documented as of this encounter Visit Diagnoses Not on filedocumented in this encounter Additional Health Concerns Infection Onset Date Last Indicated Resolved Time CoV-Exposed Comment:Recent close contact documented in the COVID-19 Amb Triage Form 10/08/2021 10/11/2021 10/23/2021 1:[address] Assessment Noted Time PHQ-2 Depression Total Score: 0 06/28/20 20 4:42 PM EDT documented as of this encounter Care Teams Air Hole Driller Relationship Specialty Start Date End Date Analy Blanco DO 9 [place] [address] [email or web address] PCP - General 10/31/18 03/02/21 Pina Guerra MD 15 [facility] [address]. [address] [place] [address] [email or web address] PCP - General Family Medicine 03/03/21 Alix Reyes PA [facility] [place] [address] Historical LMR Provider 08/17/17 2 José Manuel Leon MD [address] [place] [address] [email or web address] Historical LMR Provider 08/17/17 11/04/21 Cody Colbert MD [address] [place] [address] Historical LMR Provider 08/17/17 Meneakshi Garcia NP [address] [place] [address] [email or web address] Historical LMR Provider 08/17/17 2 Muriel Swenson MD 15 [facility], 2nd [place] [address] [email or web address] Historical LMR Provider 08/17/17 Paula Rivera PA-C [address] [place] [address] [facility], [place] [address] [email or web address] Historical LMR Provider 08/17/17 11/04/21 Светлана Simpson MD [address] [place] [address] [facility] [place] [address] [email or web address] Historical LMR Provider 08/17/17 documented as of this encounter Additional Source Comments The information contained in this document represents components of the legal health record. It is not the complete legal health record.[facility]
--- OUTSIDE RECORDS SUMMARY | 2025-08-31 11:45 | XMS_ITS | Encounter Summary ---
Author Organization [facility] Address [address] [place] [address] Phone Care Team Providers Care Pathology Secretary Name Role Phone Phi Caballero MD Unavailable [phone] Phi Caballero MD Unavailable +[phone] Alix Reyes Unavailable [phone] Katie Gaming MD Unavailable [phone] José Manuel Leon MD Unavailable Cody Colbert MD Unavailable Federico Coburn PAN PUSHER Unavailable [phone] Meenakshi Garcia FINANCIAL REPRESENTATIVE Unavailable [phone] Muriel Swenson MD Unavailable [phone] Paula Rivera PA-C Unavailable [phone] George Peterson MD Unavailable [phone] Светлана Simpson MD Unavailable Phi Caballero MD Primary Care Provide r + Nick Eagle MD Primary Care Provider Phi Caballero MD Primary Care Provide r Analy Blanco DO Primary Care Provider Pina Guerra MD Primary Care Provider [phone] Encounter Details Date Type Department Care Team (Late st Contact Info) Description 12/23/2017 Procedure Pass [facility], Ct Scan - [facility] [address] [place] [address] Social History Tobacco Use Types Packs/Day Years [...] Description 09/29/2025 8:20 AM EST Office Visit [facility] Primary Care [address] [address] Pina Guerra MD [address] [address] 10/13/2025 1:15 PM EST Office Visit [facility] 8 [place] [address] Carolina Bejarano MD [address] [place] [address] [email or web address] Destiny King, PT 8 [place] [address] 10/25/2025 12:30 PM EST Office Visit [facility] 8 [place] [address] Carolina Bejarano MD [address] [place] [address] [email or web address] Destiny King, PT 8 [place] [address] 10/29/2025 1:30 PM EST Office Visit [facility] 8 [place] [address] Carolina Bejarano MD [address] [place] [address] [email or web address] Destiny King, PT 8 [place] [address] 11/01/2025 1:00 PM EST Office Visit [address] [address] Carolina Bejarano MD [address] [place] [address] [email or web address] Hugh Burt, FUGITIVE DETECTIVE [address] [place] [address] 11/04/2025 1:45 PM EST Office Visit [address] [address] Carolina Bejarano MD [address] [place] [address] [email or web address] Hugh Burt, FUGITIVE DETECTIVE 8 [place] [address] 11/08/2025 12:30 PM EST Office Visit [address] [address] Carolina Bejarano MD [address] [place] [address] [email or web address] Destiny King, PT 8 [place] [address] 11/11/2025 1:00 PM EST Office Visit [facility] [address] [place] [address] Carolina Bejarano MD [address] [place] [address] [email or web address] Hugh Burt, FUGITIVE DETECTIVE 8 [place] [address] 11/15/2025 1:00 PM EST Office Visit [facility] 8 [place] [address] Carolina Bejarano MD [address] [place] [address] [email or web address] Hugh Burt, FUGITIVE DETECTIVE 8 [place] [address] 11/18/2025 12:15 PM EST Office Visit [facility] [address] [place] [address] Carolina Bejarano MD [address] [place] [address] [email or web address] Destiny King, PT 8 [place] [address] 12/29/2025 10:00 AM EST Office Visit [facility] [address] [place] [address] Carolina Bejarano MD [address] [place] [address] [email or web address] documented as of this encounter Visit Diagnoses Not on filedocumented in this encounter Additional Health Concerns Infection Onset Date Last Indicated Resolved Time CoV-Risk 03/17/2020 03/17/2020 03/17/2020 5:12 PM EDT CoV-Exposed Comment:Recent close contact documented in the COVID-19 Amb Triage Form 10/08/2021 10/11/2021 10/23/2021 1:[address] documented as of this encounter Care Teams Pathology Secretary Relationship Specialty Start Date End Date Phi Caballero MD [address] [place] [address] [facility], [place] [address] [email or web address] PCP - General Internal Medicine 09/02/17 12/29/17 Nick Eagle MD [address] [place] [address] PCP - General Internal Medicine 12/30/17 12/30/17 Phi Caballero MD [address] [place] [address] [email or web address] PCP - General Internal Medicine 12/31/17 10/30/18 Analy Blanco DO [address] [place] [address] [email or web address] PCP - General 10/31/18 03/02/21 Pina Guerra MD 15 [facility] [address] [place] [address] [email or web address] PCP - General Family Medicine 03/03/21 Phi Caballero MD 22 [facility] Floor 1 [place] [address] [email or web address] Insurance Assigned Provider 08/03/17 01/25/18 Phi Caballero MD 22 [facility] Floor 1 [place] [address] [email or web address] Historical LMR Provider 08/17/17 03/17/19 Alix Reyes PA [facility] [place] [address] Historical LMR Provider 08/17/17 2 Katie Gaming MD [address] [place] [address], [address] [place] [address] [email or web address] Historical LMR Provider 08/17/17 José Manuel Leon MD [address] [place] [address] [email or web address] Historical LMR Provider 08/17/17 11/04/21 Cody Colbert MD [address] [place] [address] Historical LMR Provider 08/17/17 Federico Coburn, MEHRAN [address] [place] [address], [address] [place] [address] [email or web address] Historical LMR Provider 08/17/17 03/17/19 Meenakshi Garcia, FINANCIAL REPRESENTATIVE [address] [place] [address] [email or web address] Historical LMR Provider 08/17/17 2 Muriel Swenson MD 15 [facility], 2nd [place] [address] Historical LMR Provider 08/17/17 Paula Rivera PA-C 4 [facility], [facility] [place] [address] Historical LMR Provider 08/17/17 11/04/21 George Peterson MD 22 [facility], [address] [place] [address] Historical LMR Provider 08/17/17 Светлана Simpson MD 4 [facility], [facility] [place] [address] Historical LMR Provider 08/17/17 documented as of this encounter Additional Source Comments The information contained in this document represents components of the legal health record. It is not the complete legal health record.[facility]
--- OUTSIDE RECORDS SUMMARY | 2025-08-31 11:45 | XMS_ITS | Encounter Summary ---
Author Organization [facility] Address [address] [place] [address] Care Team Providers Care Pipe Fitter Marine Name Role Phone Pina Guerra Primary Care Provider [phone] Tessy Carr PHARMACIST Unavailable Unava ilable Encounter Details Date Type Department Care Team (Late st Contact Info) Description 09/12/2021 Orders Only [facility] Department of Rheumatology [address] [place] [address] Jose Luis [address] [address] Encounter for long-term current use of medication; Rheumatoid arthritis involving multiple sites, unspecified whether rheumatoid factor present (HCC) Social History Tobacco Use Types Packs/Day Years Used Date Smoking Tobacco: Former Cigarettes 1 15 1 993 - 2007 Smokeless Tobacco: Never Alcohol Use [...] Description 01/11/2026 11:00 AM EDT Office Visit [facility] Department of Rheumatology [address] [place] [address] Reny Gar MD [address] [facility] [place] [phone] Pending Results Name Type Priority Associated Diagnoses Date /Time Urinalysis, complete Lab Routine Encounter for long-term current use of medication Rheumatoid arthritis involving multiple sites, unspecified whether rheumatoid factor present (HCC) 04/24/2023 8:33 AM EDT Scheduled Orders Name Type Priority Associated Diagnoses Orde r Schedule Urinalysis, Complete Lab Routine Encounter for long-term current use of medication Rheumatoid arthritis involving multiple sites, unspecified whether rheumatoid factor present (HCC) Ordered: 09/12/2021 Yellow top, urine Lab Routine Encounter for long-term current use of medication Rheumatoid arthritis involving multiple sites, unspecified whether rheumatoid factor present (HCC) Ordered: 09/12/2021 Complete Blood Count with Auto Differential Lab Routine Encounter for long-term current use of medication Ordered: 09/12/2021 documented as of this encounter Procedures Procedure Name Priority Date/Time Associated Diagnosis Comments RAMON BORIC ACID TUBE, URINE Routine 04/24/2023 8:33 AM EDT Encounter for long-term current use of medication Rheumatoid arthritis involving multiple sites, unspecified whether rheumatoid factor present (HCC) documented in this encounter Results * Ramon boric acid tube, urine (04/24/2023 8:33 AM EDT) Urine Urine specimen obtained by clean catch procedure / Unknown Non-blood Collection / Unknown 04/24/2023 8:33 AM EDT 04/24/2023 8:33 AM EDT us Reny Gar MD LAB MICROBIOLOGY - GENERAL ORDERABLES Final Result [facility] [address] [place] [address], [place] [phone] documented in this encounter Visit Diagnoses Diagnosis Encounter for long-term current use of medication Rheumatoid arthritis involving multiple sites, unspecified whether rheumatoid factor present (HCC) documented in this encounter Care Teams Pipe Fitter Marine Relationship Specialty Start Date End Date Pina Guerra [address] [place] [address] PCP - General Primary Care 07/21/21 Tessy Carr, PHARMACIST [address] [place] [address] Pharmacy 11/05/23 documented as of this encounter
--- OUTSIDE RECORDS SUMMARY | 2025-08-31 11:46 | XMS_ITS | Encounter Summary ---
Author Organization [facility] Address [address] [place] [address] Care Team Providers Care Hatch Tender Name Role Phone Pina Guerra Primary Care Provider [phone] Tessy Carr PHARMACIST Unavailable Unava ilable Encounter Details Date Type Department Care Team (Late st Contact Info) Description 03/26/2023 Orders Only [facility] [address] [place] [address] Reny Gar MD [address] [facility] [place] [phone] Social History Tobacco Use Types Packs/Day Years [...] Description 01/11/2026 11:00 AM EDT Office Visit [facility] [address] [place] [address] Reny Gar MD [address] [facility] [place] [phone] documented as of this encounter Visit Diagnoses Not on filedocumented in this encounter Care Teams Hatch Tender Relationship Specialty Start Date End Date Pina Guerra [address] [place] [address] PCP - General Primary Care 07/21/21 Tessy Carr, PHARMACIST [address] [place] [address] Pharmacy 11/05/23 documented as of this encounter
--- OUTSIDE RECORDS SUMMARY | 2025-08-31 11:46 | XMS_ITS | Encounter Summary ---
Author Organization [facility] Address [address] [place] [address] Care Team Providers Care Automotive Tire Worker Name Role Phone Pina Guerra Primary Care Provider [phone] Tessy Carr PHARMACIST Unavailable Unava ilable Encounter Details Date Type Department Care Team (Late st Contact Info) Description 05/08/2023 Orders Only [facility] Department of Rheumatology [address] [place] [address] Anisha Rodriguez 195 [facility] [address] [place] [address] Social History Tobacco Use Types Packs/Day Years [...] suspected to have Coronavirus/COVID-19? No / Unsure 05/07/2023 1:00 PM EDT documented as of this encounter Plan of Treatment Upcoming Encounters Date Type Department Care Team (Late st Contact Info) Description 01/11/2026 11:00 AM EDT Office Visit [facility] Department of Rheumatology [address] [place] [address] Reny Gar MD 263 [facility] [place] [address] documented as of this encounter Visit Diagnoses Not on filedocumented in this encounter Care Teams Automotive Tire Worker Relationship Specialty Start Date End Date Pina Guerra 15 [place] [address] PCP - General Primary Care 07/21/21 Tessy Carr, PHARMACIST [address] [place] [address] Pharmacy 11/05/23 documented as of this encounter
--- OUTSIDE RECORDS SUMMARY | 2025-08-31 11:46 | XMS_ITS | Clinical Summary ---
Author Organization [facility] Address [address] [place] [address] Care Team Providers Care Patient Carrier Name Role Phone Pina Guerra Primary Care Provider [phone] Tessy Carr PHARMACIST Unavailable Unava ilable Allergies Active Allergy Reactions Criticality Noted Date Comments Amlodipine Swelling 04/24/2021 Hydroxychloroquine Sulfate Hives 4 plaquenil Medications amoxicillin (AMOXIL) 500 mg capsule 8 Active ELIQUIS 5 mg 8 Active cyanocobalamin 1,000 mcg tablet Act leah hydrocortisone (ANUSOL-HC) 25 mg suppository 6 Active polycarbophil (FIBERCON) 625 mg tablet Take 625 mg by mouth. Active pyridoxine, vitamin B6, (VITAMIN B-6) 100 mg tablet Active b complex vitamins capsule Take by mouth. Active BOOSTRIX TDAP 2.5-8-5 Lf-mcg-Lf/0.5mL vaccine 9 Active FluZONE HighDose Quad 20-21 PF 240 mcg/0.7 mL syringe vaccine 0 Active verapamiL (CALAN) 120 mg tablet Take 120 mg by mouth in the morning and 120 mg before bedtime. 1 Active hydroCHLOROthiaz aida (HYDRODIURIL) tablet 1 Active labetaloL (NORMODYNE) 200 mg tablet Take 200 mg by mouth in the morning and 200 mg in the evening. 3 Active terazosin (HYTRIN) 1 mg capsule Take 1 mg by mouth in the morning. 3 Active LISINOPRIL-HYDRO CHLOROTHIAZIDE ORAL 3 Active CALCIUM ORAL Take by mouth in the morning and in the evening. Active cholecalciferol, vitamin D3, (VITAMIN D3 ORAL) Take by mouth. Daily Active vitamin E, dl,tocopheryl acet, (vitamin E, dl, acetate,) 400 unit Take by mouth in the morning. Daily . Active omeprazole (PriLOSEC) 40 mg capsule Active diclofenac sodium (VOTAREN XR) 100 mg 24 hr tablet Take 1 tablet (100 mg total) by mouth in the morning. 90 tablet 5 Active Additional Information Patient not taking.Informant: Self, Reported on 05/18/2025 abatacept (Orencia) 125 mg/mL injection Inject 125mg (1 syringe) under the skin weekly 12 mL 2 5 Active diclofenac (VOLTAREN) 50 mg EC tablet TAKE 1 TABLET BY MOUTH EVERY MORNING AND BEFORE AT BEDTIME WITH FOOD. 180 tablet 1 5 Active lisinopriL (PRINIVIL) 30 mg tablet 5 Active Active Problems Problem Noted Date Diagnosed Date Encounter for ongoing osteop orosis non-bisphosphonate therapy 01/27/2024 Age-related osteoporosis wit hout current pathological fracture 03/06/2022 Assessment & Plan (03/06/2022 9:37 AM EDT): 76-year-old female with history of osteoporosis based on fracture history, as well as bone density results from August 2021, showing low bone mass at the right forearm with a T score of -4.0, osteopenic T-scores in the left femoral neck and total left femur at -1.0, and -2.0 on a Hologic unit. As compared to prior study from July 2019, findings were stable. Spine bone mass overestimated and nondiagnostic due to prior surgeries and degenerative changes. Risk factors include advancing age, postmenopausal status, fall risk due to left-sided weakness as a residual symptom of prior back surgeries, rheumatoid arthritis, waxing and waning CKD, history of primary hyperparathyroidism status post parathyroidectomy with 2 glands removed in December 2019. Her calculated FRAX 10-year risk of any major osteoporotic fracture is 19%, hip fracture is 3.2%, therefore she meets treatment criteria. Today had an opportunity to review patient's external records in detail. She was offered to start Prolia injectable therapy in August 2021 her academic manager, however she has been on the fence regarding this plan. She feels somewhat more comfortable at this time to proceed with treatment. She is under monitoring with a food production supervisor for waxing and waning CKD, which she feels is related to chronic dehydration. Oral bisphosphonate therapy would not be ideal given chronic PPIs, IV zoledronic acid could present potential safety issues with waxing and waning creatinine clearance, therefore denosumab/Prolia therapy likely the most optimal option at this time. I discussed potential side effects of Prolia and those include hypersensitivity reaction, hypocalcemia, dermatological side effects, musculoskeletal pain. Additional but rare side effects include osteonecrosis of the jaw, with increased risk for that complication while undergoing invasive dental procedures such as dental extractions or implants, and atypical femur fracture. Patient was also counseled that discontinuation of Prolia without any additional antiresorptive measures such as oral or IV bisphosphonate, could result in rebound effect, and consequently rapid bone loss and increased risk of fractures, especially vertebral compression fractures. Patient was counseled that while on Prolia therapy they need to ensure adequate calcium and vitamin D intake to prevent or treat hypocalcemia. If dietary intake is inadequate, dietary supplementation is recommended to meet [id number] mg of calcium per day, and adequate vitamin D supplementation to maintain normal serum level. Prior authorization for Prolia was submitted, and patient will schedule her first injection when she is here for her rheumatology appointment on April 17, 2022. She will continue every 6 months thereafter, and I will see her approximately 1 year into therapy with a new bone density test, standard and appendicular, and new set of labs to reassess. She was advised to complete blood work for baseline bone health assessment/metabolic work-up in the next couple of weeks, prior to starting treatment. I will review once available. She will continue on current calcium and vitamin D routine, keep up with dental checkups, continue weightbearing activities as much as tolerated, practice fall prevention. Diastolic heart failure 03/02/2022 Stage 3b chronic kidney disease 02/08/2022 Overview (01/27/2024): Last Assessment & Plan: Reviewed her lab trend which show a marked increase in her creatnine over the last few months and decrease in GFR. I wonder if the med changes are at the root of this and I would like nephrology to weigh in on what if anything beyond monitoring is indicated at this time. Gastroesophageal reflux disease without esophagi tis 02/14/2021 Hiatal hernia 04/12/2020 Overview (01/27/2024): Was due for surgery however she has chosen to postpone this given her response (CHF and a.fib) after parathyroid surgery. Currently managing conservatively with elevation of bed eating smaller meals not eating too late at night no carbonated beverages and cutting down on caffeine. We will add pantoprazole 40 mg daily. H2 cyndi as needed. Congestive heart failure wit h left ventricular systolic dysfunction 03/17/2020 Overview (01/27/2024): Last Assessment & Plan: euvolemic at this time Primary hyperparathyroidism 11/17/2018 Rheumatoid arthritis involving multiple sites Assessment & Plan (06/28/2025 6:45 PM EDT): Will continue with the Orencia injections and get lab work every couple of months and see me back in follow-up in 6 months. Assessment & Plan (12/27/2024 1:53 PM EST): Patient will continue on the Orencia for now. Lab work every couple of months. Follow-up with me in clinic in 6 months. Assessment & Plan (05/19/2024 10:06 AM EDT): Continue Orencia and labs every 2 mo. F/U in 6 mo. Assessment & Plan (03/09/2024 5:12 AM EDT): 120 mg of Depo-Medrol administered. Same done. Follow-up with me in clinic in a few months. Continue with Orencia. Lab work every few months. Assessment & Plan (05/07/2023 1:36 PM EDT): Stay on Orencia same dose. F?U in 6 mo. Assessment & Plan (12/03/2022 9:06 AM EST): Patient will get an intramuscular injection of Depo-Medrol 120 mg and we will see her back in follow-up in a few months. Monitoring lab work every couple of months. Assessment & Plan (05/08/2022 9:36 AM EDT): Continue Orencia and methotrexate and follow-up in clinic in a few months Assessment & Plan (04/17/2022 1:56 PM EDT): We will discontinue the methotrexate and see if she feels any worse. She is going to pay attention to her symptoms with regards to the Orencia and if she is noticing that her symptoms are increasingly limiting activities of daily living then we might have to reconsider switching that as well. Her last sedimentation rate on 03/23/2022 was 26. Her vitamin D was low at 28 I am going to give her 50,000 units of vitamin D weekly for 8 weeks. Assessment & Plan (08/14/2021 7:11 AM EDT): We will continue with the abatacept and administer the influenza vaccine today. Follow-up in clinic in about 4 to 6 months. Assessment & Plan (05/01/2021 10:32 AM EDT): She will get an intramuscular injection of Depo-Medrol 120 mg today for her flare and I will see her back in follow-up in about a month to make sure things are under control. We will also use a higher dose of methotrexate. Assessment & Plan (04/24/2021 1:34 PM EDT): We will continue with the higher dose of methotrexate. We will check lab work every 2 months including a urinalysis. Follow-up with me in clinic in about 4 months. Assessment & Plan (10/30/2020 3:50 PM EST): Continue the Orencia. Lab work every 2 months. Follow-up with me in clinic in about 6 months. Assessment & Plan (10/27/2019 11:03 AM EST): Leflunomide dose will be dropped to 10 mg a day and then will see how the blood pressure responds and follow-up with me in about 3 to 6 months. Assessment & Plan (05/16/2019 6:21 PM EDT): We will increase the leflunomide dose to 20 mg a day. Follow-up with me in clinic in about 3 to 4 months. Assessment & Plan (08/21/2018 7:00 AM EDT): If the intramuscular Depo-Medrol does not recapture her on the Humira we are going to switch her to Orencia. Encounter for long-term current use of medicatio n 08/01/2018 Polyarthralgia 08/01/2018 Persistent atrial fibrillation 09/05/2017 Overview (01/27/2024): On verapamil 360 mg daily, anticoagulated on Eliquis 5 mg twice daily and was on Digoxin 0.25mg qd but stopped on 07/28 due to dig level elevated at 2.3. Her heart rate is still a bit variable and on exertion can be as high as 130. Initially on visit today her heart rate was Last Assessment & Plan: Claims her heart rate is better controlled. In view of her age and severely dilated left atrium we will continue with rate control. Essential hypertension 09/05/2017 Overview (01/27/2024): Last Assessment & Plan: Blood pressures are better controlled at home. Continue same medications. Following up with PCP. Last Assessment & Plan: Seems to have improved on increased HCTZ and small dose sanchez. Continuing to follow up with Cardiology Last Assessment & Plan: She tells me that controlling her BP has been a chcf bah. She has an allergy to amlodipine. [...] in one month for a BP recheck. Last Assessment & Plan: Difficult to control blood pressure. Maxxed on all current meds. Has tried nearly all the available typical agents. Metoprolol did control her pressures well but made her sick. I do think another beta cyndi might be helpful. States she has tried sanchez in the past, but in combo with another drug. I do think sanchez might be helpful if labetalol fails. Last Assessment & Plan: Better control on current medication regimen Polymyalgia rheumatica ([facility]) 05/26/2015 Resolved Problems Problem Noted Date Diagnosed Date Resolved Date Influenza vaccine needed 08/14/2021 Immunizations Immunization Administration Dates Next Due Hepatitis B 01/24/2016,08/25/2015,07/26/2015 Influenza Vaccine 65y and older 07/21/20 21,07/31/2019,08/12/2018,07/27/20 17,08/21/2016,07/26/2015,07/17/2014,07/23,07/08/2012 Influenza, Unspecified 07/28/2011,09/08/2010 Pneumococcal Conjugate PCV-13 10/16/2013 Pneumococcal Polysaccharide PCV-23 11/10/2009 Shingrix (Zoster Recombinant) 03/18/2019, 018 Td, Unspecified 05/31/2008 Tdap 03/18/2019 Zoster 05/31/2008 Family History Medical History Relation Comments Arthritis Brother 1 Hypertension Brother 1 Stroke Brother 1 Diabetes Brother 2 Arthritis Father Gout Father Heart disease Father Hypertension Father Rheum arthritis Father Stroke Father Arthritis Father's Sister 1 Heart disease Father's Sister 1 Rheum arthritis Father's Sister 2 Arthritis Maternal Grandmother Arthritis Mother Diabetes Mother Heart disease Mother Hypertension Mother Vision loss Mother's Sister Stroke Paternal Grandfather Rheum arthritis Paternal Grandmother Arthritis Sister 1 Hypertension Sister 1 Cancer Sister 2 Relation Status Comments Brother 1 Brother 2 Father Father's Sister 1 Father's Sister 2 Maternal Grandmother Mother Mother's Sister Paternal Grandfather Paternal Grandmother Sister 1 Sister 2 Social History Tobacco Use Types Packs/Day Years [...] Orientation Straight 10/15/2021 6: 21 PM EST Last Filed Vital Signs Vital Sign Reading Time Taken Comments Blood Pressure 191/95 05/18/2025 10:44 AM EDT Pulse 98 11/10/2024 11:07 AM EST Temperature - - Respiratory Rate - - Oxygen Saturation - - Inhaled Oxygen Concentration - - Weight 58.5 kg (129 lb) 05/18/2025 10:44 AM EDT Height 152.4 cm (5') 05/18/2025 10:44 AM EDT Body Mass Index 25.19 05/18/2025 10:44 AM EDT Plan of Treatment Upcoming Encounters Date Type Department Care Team (Late st Contact Info) Description 01/11/2026 11:00 AM EDT Office Visit [facility] Department of Rheumatology [address] [place] [address] Reny Gar MD [address] [facility] [place] [address] Health Maintenance Due Date Last Done Comments HIV Screening 1945 Medicare Annual Wellness (AWV) 08/17/2021 08/16/2020, 09/16/2018 Bone Density Screening 04/24/2025 3, 03/06/2022, 03/06/2022, Additional history exists COVID-19 Vaccine (3 - season) 2025 12/23/2020, 12/02/2020 Influenza Vaccine (#1) 2025 4, 07/08/2024, 07/10/2023, Additional history exists DTaP,Tdap,and Td Vaccines (2 - Td or Tdap) 03/18/2029 03/18/2019, 05/31/2008 Pneumococcal Vaccine, 50+ Years Completed 10/16/2013, 11/10/2009 Zoster Vaccines Completed 03/18/2019, 10/01/2018 HPV Vaccines Aged Out No longer eligi ble based on patient's age to complete this topic Hepatitis A Vaccines Aged Out No long er eligible based on patient's age to complete this topic Meningococcal Vaccine Aged Out No tarun martell eligible based on patient's age to complete this topic Procedures Procedure Name Priority Date/Time Associated Diagnosis Comments DXA BONE DENSITY STANDARD EXAM SPINE + FEMUR W OR WO TBS Routine 04/24/2023 9:20 AM EDT Age-related osteoporosis without current pathological fracture Encounter for monitoring denosumab therapy Encounter for imaging to assess osteoporosis change Primary hyperparathyroidism (HCC) from Last 3 Months or Most Recently Relevant to Health Maintenance Results * DXA bone density standard exam spine + femur (04/24/2023 9:20 AM EDT) Anatomical Region Laterality Modality Femur, L-spine Nuclear Medicine 04/24/2023 9:21 AM EDT Impressions 04/24/2023 11:04 AM EDT Normal bone mineral density of the lumbar spine. Compared to 2009 BMD increased 42.1%. This is likely secondary to progressive degenerative change. Osteopenia of the left hip. Compared to 2009 BMD decreased 12% Electronic signature on the final report indicates that Leroy Willingham MD has personally reviewed this examination initially dictated by Tyrese Veras. Final report signed by Leroy Willingham MD Narrative 04/24/2023 11:04 AM EDT DXA BONE DENSITY STANDARD EXAM SPINE + FEMUR A bone density study was performed: INDICATION: 77 years old female. M81.0 Age-related osteoporosis without current pathological fracture Z51.81 Encounter for therapeutic drug level monitoring Z79.899 Other roasterman (current) drug therapy Z13.820 Encounter for screening for osteoporosis E21.0 Primary hyperparathyroidism. FINDINGS: This is a summary of bone density measurements performed on the lumbar spine and the proximal left femur. Comparison is made to baseline study 2008. LUMBAR SPINE (L1-L4) Bone Mineral Density: 1.764(g/cm2) *T-Score: 4.9 Trabecular bone score: 1.063 Trabecular bone T-score: -4.3 LUMBAR SPINE (A-P): Normal bone mineral density of the lumbar spine. Vertebral alignment and morphology demonstrate progressive multilevel sclerotic degenerative change. PROXIMAL LEFT FEMUR Femoral Neck Bone Mineral Density: 0.929(g/cm2) *T-Score: -0.8 Total Proximal Femur Bone Mineral Density: 0.802(g/cm2) *T-Score: -1.6 PROX. LEFT FEMUR: Osteopenia of the left hip. No distortions and no significant asymmetries noted. Estimated body composition 42.9% fat 57.1% lean tissue. FRAX fracture risk of major osteoporotic fracture is 19.4% (22.6% adjusted for trabecular bones score) FRAX fracture risk of hip fracture is 3.1% (3.6% adjusted for trabecular bone score) Procedure Note Leroy Willingham MD - 04/24/2023 DXA BONE DENSITY STANDARD EXAM SPINE + FEMUR A bone density study was performed: INDICATION: 77 years old female. M81.0 Age-related osteoporosis without current pathological fracture Z51.81 Encounter for therapeutic drug level monitoring Z79.899 Other chcf (current) drug therapy Z13.820 Encounter for screening for osteoporosis E21.0 Primary hyperparathyroidism. FINDINGS: This is a summary of bone density measurements performed on the lumbarspine and the proximal left femur. Comparison is made to baseline [id number]. LUMBAR SPINE (L1-L4) Bone Mineral Density: 1.764(g/cm2) *T-Score: 4.9 Trabecular bone score: 1.063 Trabecular bone T-score: -4.3 LUMBAR SPINE (A-P): Normal bone mineral density of the lumbar spine.Vertebral alignment and morphology demonstrate progressive multilevelsclerotic degenerative change. PROXIMAL LEFT FEMUR Femoral Neck Bone Mineral Density: 0.929(g/cm2) *T-Score: -0.8 Total Proximal Femur Bone Mineral Density: 0.802(g/cm2) *T-Score: -1.6 PROX. LEFT FEMUR: Osteopenia of the left hip. No distortions and nosignificant asymmetries noted. Estimated body composition 42.9% fat 57.1% lean tissue. FRAX fracture risk of major osteoporotic fracture is 19.4% (22.6% adjustedfor trabecular bones score) FRAX fracture risk of hip fracture is 3.1% (3.6% adjusted for trabecularbone score) IMPRESSION: Normal bone mineral density of the lumbar spine. Compared to 2009 BMDincreased 42.1%. This is likely secondary to progressive degenerativechange. Osteopenia of the left hip. Compared to 2009 BMD decreased 12% Electronic signature on the final report indicates that Leroy Langley MD has personally reviewed this examination initiallydictated by Tyrese Veras. Final report signed by Leroy Willingham MD Bettie Moulton APRN IMG DXA PROCEDURES Final Re sult from Last 3 Months or Most Recently Relevant to Health Maintenance Insurance [id number] [place] [id number] [email or web address] MANAGED MEDICARE [address]PO [address] [facility] [place] Care Teams Patient Carrier Relationship Specialty Start Date End Date Charlie Pina [address] [place] [address] PCP - General Primary Care 07/21/21 Tessy Carr, PHARMACIST [address] [place] [id number] Pharmacy 11/05/23
== END 2025-08-31 10:24 | disposition home or self-care (01) ==
LOC: HO.HCS 10:06
PROVIDERS: PCP Family Medicine; Visit Provider Internal Medicine
DX: I48.19 Other persistent atrial fibrillation (principal); I50.32 Chronic diastolic (congestive) heart failure; I35.0 Nonrheumatic aortic (valve) stenosis; I34.81 Nonrheumatic mitral (valve) annulus calcification
CPT/HCPCS: 99214; G2211

== ENCOUNTER → 2025-08-31 10:06 | Outpatient (BNVA) | payer MEDICARE, OTHER, SELFPAY | PROVIDERS: PCP Family Medicine; Visit Provider Internal Medicine | DX: I35.0 Nonrheumatic aortic (valve) stenosis (principal); I48.19 Other persistent atrial fibrillation; I50.32 Chronic diastolic (congestive) heart failure; I34.81 Nonrheumatic mitral (valve) annulus calcification | CPT/HCPCS: 99212 ==

== ENCOUNTER → 2025-10-01 08:47 | Outpatient (REF) | payer MEDICARE, OTHER, SELFPAY | LOC: HO.CARD 08:47 | PROVIDERS: PCP Family Medicine; Visit Provider Internal Medicine | DX: I48.19 Other persistent atrial fibrillation (principal) | CPT/HCPCS: 93242 ==

== ENCOUNTER → 2025-10-01 08:49 | Outpatient (BNV) | payer MEDICARE, OTHER, SELFPAY | PROVIDERS: PCP Family Medicine; Visit Provider Internal Medicine Cardiovascular Disease | DX: I48.91 Unspecified atrial fibrillation (principal) | CPT/HCPCS: 93244 ==